=== PATIENT | female | born 1930 | race Caucasian/White ===

== ENCOUNTER 2016-10-29 20:56 | Inpatient (IN) | payer MEDICARE, OTHER ==
[2016-10-29] MEDS ORDERED: ALPRAZolam 0.25 MG TAB PO PRN (23:11)
[2016-10-29] MEDS ORDERED: ACETAMINOPHEN TAB 325 MG TAB PO PRN (23:11)
[2016-10-29 23:13] VITALS: BMI 26.3
[2016-10-29] MEDS ORDERED: SODIUM CHLORIDE 0.9% 1,000 ML IV SCH (23:15)
[2016-10-29 23:58] LABS: Basophils % (A) 0 %; Eosinophils # (A) 0.1 k/uL (0-0.7); Eosinophils % (A) 1 %; HCT 31.9 % (34.0-46.0); HDW 2.42; HGB 9.7 gm/dL (11.4-16.0); Hypochromasia Moderate; Luc # (Auto) 0.22; Luc % (Auto) 3; Lymphocytes # (A) 0.5 k/uL (1.0-4.8); Lymphocytes % (A) 6 %; MCH 31.5 pg (25.0-35.0); MCHC 30.3 g/dL (31.0-37.0); MCV 103.8 fL (80.0-100.0); Macrocytosis Moderate; Monocytes # (A) 0.4 k/uL (0-1.0); Monocytes % (A) 5 %; Neutrophils # (A) 7.3 k/uL (1.3-7.7); Neutrophils % (A) 86 %; RBC 3.07 m/uL (3.80-5.40); RDW 14.9 % (11.5-15.5); WBC 8.5 k/uL (3.8-10.6)
--- NOTE | 2016-10-30 00:01 | XR ---
EXAM: XR CXR 1 VIEW INDICATION: 86-year-old female, CHF. COMPARISON: 10/26/2015. FINDINGS: Single frontal view demonstrates a stable cardiomediastinal silhouette. Aorta is tortuous. The lungs are clear without focal consolidation, pneumothorax, or pleural effusion. The visualized osseous structures are unremarkable. IMPRESSION: No acute cardiopulmonary disease.
[2016-10-30 00:07] LABS: Calcium 8.6 mg/dL (8.4-10.2); Potassium 4.7 mmol/L (3.5-5.1); Total Bilirubin 1.2 mg/dL (0.2-1.3); Total Protein 5.3 g/dL (6.3-8.2)
[2016-10-30 02:34] LABS: Amorphous Sediment,Urine Rare /hpf; Appearance,Urine Cloudy (Clear); Bacteria,Urine Many /hpf; Bilirubin,Urine Negative (Negative); Glucose,Urine (UA) Negative (Negative); Ketones,Urine Negative (Negative); Leukocyte Esterase,Urine Large (Negative); Mucus,Urine Rare /hpf; Nitrite,Urine Negative (Negative); PH, Urine 8.5 (5.0-8.0); Particle Count 27114; Protein,Urine 1+ (Negative); RBC,Urine 4 /hpf (0-5); Triple Phosphate Crystal,Urine Rare /hpf; UA Billing (MACRO vs. MICRO) MICRO; Urobilinogen,Urine <2.0 mg/dL (<2.0); WBC,Urine 54 /hpf (0-5)
[2016-10-30 07:18] LABS: Basophils % (A) 0 %; CH 31.1; CHCM 29.8; Eosinophils # (A) 0.1 k/uL (0-0.7); Eosinophils % (A) 1 %; HCT 34.9 % (34.0-46.0); HDW 2.39; HGB 10.2 gm/dL (11.4-16.0); Hypochromasia Marked; Luc # (Auto) 0.28; Luc % (Auto) 3; Lymphocytes # (A) 0.4 k/uL (1.0-4.8); Lymphocytes % (A) 4 %; MCH 30.9 pg (25.0-35.0); MCHC 29.3 g/dL (31.0-37.0); MCV 105.2 fL (80.0-100.0); Macrocytosis Moderate; Mean Platelet Volume 8.3; Monocytes # (A) 0.4 k/uL (0-1.0); Monocytes % (A) 5 %; Neutrophils # (A) 8.3 k/uL (1.3-7.7); Neutrophils % (A) 87 %; RBC 3.32 m/uL (3.80-5.40); WBC 9.5 k/uL (3.8-10.6); WBC (Perox) 9.78
[2016-10-30 07:50] LABS: Glucose,Whole Blood 182 mg/dL (75-99)
[2016-10-30 07:50] LABS: Calcium 8.6 mg/dL (8.4-10.2)
[2016-10-30] MEDS: LEVALBUTEROL NEB 1.25 MG/3 ML AMP INHALATION SCH ×3 (11:22→20:11)
[2016-10-30] MEDS: PANTOPRAZOLE 40 MG TABLET PO SCH (11:30)
[2016-10-30] MEDS: HEPARIN SODIUM,PORCINE 5,000 UNIT/ML 1 ML VIAL SQ SCH ×2 (11:30→21:13)
[2016-10-30 11:52] LABS: Glucose,Whole Blood 253 mg/dL (75-99)
--- NOTE | 2016-10-30 12:35 | HP ---
DATE OF ADMISSION: 10/29/2016 CHIEF COMPLAINT: Weakness, tiredness, fever, dehydration. HISTORY OF PRESENT ILLNESS: This 86-year-old woman with a past history of diabetes mellitus, GERD, hypertension, hyperlipidemia, history of pneumonia, rheumatic fever, history of uterine cancer, history of appendectomy, back surgery, history of coccyx decubitus ulcer, history of gout, being followed by Dr. Conde in the outpatient setting, presented to [facility] with features of feeling weak, shaking, running fevers, with temperature up to 102 to 103. Her p.o. intake was very low. the patient had persistent vomiting. The patient was subsequently transferred to [facility] for further evaluation and treatment. There is no history of any headache, loss of consciousness, chest pain or palpitations at this time. Creatinine went up to 2.9 today which is definitely more than the baseline which is 1.6. PAST MEDICAL HISTORY: History of diabetes, gastroesophageal reflux disease, hyperlipidemia, hypertension, pneumonia, history of hypothyroidism, history of rheumatic fever, surgery, DJD, gout. Medications prior to admission: The updated list is not available. FAMILY HISTORY: No history of heart disease or strokes in the family. SOCIAL HISTORY: No history of smoking or alcohol intake. REVIEW OF SYSTEMS: ENT: Diminishing hearing. Diminished vision. CARDIOVASCULAR: As mentioned earlier. As mentioned earlier. GI: As mentioned earlier. : As mentioned earlier. RHEUMATOLOGY: Negative. ENDOCRINE: As mentioned earlier. PSYCHIATRY: As mentioned earlier. NERVOUS SYSTEM: No numbness or weakness. ALLERGY/IMMUNOLOGY: No hayfever. HEMATOLOGY/ONCOLOGY: As mentioned. PSYCHIATRY: As mentioned earlier. On exam, the patient is alert, oriented x3. Pulse is 83, blood pressure is 120/52, respirations 20, temperature 100.8, pulse ox is 93%. HEENT: Conjunctivae normal. Oral mucosa dry. NECK: No jugular venous distention. CARDIOVASCULAR: S1 and S2 muffled. LUNGS: Breath sounds diminished at the bases. Few scattered rhonchi and crackles. Expiratory wheezing also present. ABDOMEN: Soft, nontender. EXTREMITIES: Legs no edema. NERVOUS SYSTEM: No focal deficits. LABS: EKG shows ST-T wave changes. Other labs are reviewed and include WBC 10.6, platelets 131. UA with 3+ leukocyte esterase and 1 to 3 WBCs ASSESSMENT: 1. Fever and dehydration with acute on chronic renal failure, possible prerenal factors. 2. Diabetes mellitus type 2. 3. Possible urinary tract infection. 4. Possible acute bronchitis, rule out influenza. 5. Diabetes mellitus type 2. 6. History of gastroesophageal reflux disease. 7. Hypertension. 8. Hyperlipidemia. 9. History of decubitus ulcer stage 3. 10. History of rheumatic fever. 11. History of uterine cancer. 12. History of pelvis fracture. 13. History of gout. 14. 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 15. History of back surgery and degenerative joint disease. 16. Depression, not otherwise specified. 17. FULL CODE. RECOMMENDATIONS: In this 87-year-old woman who presented with multiple complex medical issues, we will monitor the patient closely. Continue the current medications and symptomatic treatment. Otherwise at this time I would recommend empiric antibiotics. Obtain cultures. Cautious IV fluids. I would recommend infectious disease and nephrology consultations. Guarded prognosis because of multiple complex medical issues. Check bronchodilators. See orders. Baseline labs. Guarded prognosis because of multiple medical issues. Further recommendations to follow. MTDD
--- NOTE | 2016-10-30 13:16 | P.NPCON ---
History of Present Illness - Reason for Consult Consult date: 10/30/16 - Chief Complaint Acute kidney injury with urostomy - History of Present Illness This is a 86-year-old female seen in consultation because of chronic kidney disease acute kidney injury and non-gap acidosis. She has been ill with 5 days history of temperature, cough with dry scanty sputum no shortness of breath. No chest pain. Nausea vomiting and poor appetite. She also has chronic diarrhea ever since 1978 when she had radiation to her uterus. This is controlled and she has 1 or 2 loose stools a day. No blood in the stools. No history of using any antibiotics recently but she is on nonsteroidals. She is known with diabetes since 1978, uterine cancer at that time underwent radiation with resulting need for urostomy with the ileal loop. Blood sugars more recently have been out of control and are high. She is also known with chronic back ulcer she uses a walker to walk and is mostly bedridden. The ulcer has been there for maybe 2 years. Workup so far has shown influenza A and B are negative. Urinalysis has WBCs but this is specimen from the loop urostomy. Past Medical History Past Medical History: Cancer, Chest Pain / Angina, Diabetes Mellitus, GERD/ Reflux, Hyperlipidemia, Hypertension, Pneumonia, Thyroid Disorder Additional Past Medical History / Comment(s): Hx Rheumatic fever Hx Uterine cancer and had radation which causes constant loose stools. Had bladder removed r/t uterine cancer and radiation. Has urostomy. Currently wound on coccyx ,pt stated has been recieving tx for 2 year., fx pelvis fx rt arm 1985, lt elbow BROKEN 1985,lt wrist FX 2000, GOUT. 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/15-VRE MDRO Source:: MRSA-Back;VRE Urine Past Surgical History: Appendectomy, Back Surgery, Bladder Surgery, Cholecystectomy, Hysterectomy, Joint Replacement, Orthopedic Surgery, Tonsillectomy Additional Past Surgical History / Comment(s): Total right knee, cataracts, BLADDER AND RT KIDNEY REMOVED WERE DAMAGED FROM RADIATION TREATMENTS,HAS UROSTOMY, NECK SX 1993,COLONOSCOPY, NERVE BLOCK 1998,BACK SX 1999,KNEE SX 1999, TEST ON GLANDS IN NECK,2000 HAS HAD 4 BACK SX HAS METAL IN PLACE, RT ARM SX ,LT ELBOW SX HAS PIN IN PLACE Past Anesthesia/Blood Transfusion Reactions: No Reported Reaction Additional Past Anesthesia/Blood Transfusion Reaction / Comment(s): blood transfusion 2001 Past Psychological History: Depression Additional Psychological History / Comment(s): , lives with grandson. No travels. experience. No animal exposures. No tobacco or alcohol use. Smoking Status: Never smoker Past Alcohol Use History: None Reported Past Drug Use History: None Reported - Past Family History Mother Family Medical History: Cancer Additional Family Medical History / Comment(s): mother age late 80's of leukemia Father Family Medical History: Cancer Additional Family Medical History / Comment(s): of cancer of the throat age 70's Medications and Allergies Home Medications Medication Instructions Recorded Confirmed Type Allopurinol [Zyloprim] 100 mg PO BID 01/22/15 10/30/16 History Aspirin 81 mg PO DAILY 01/22/15 10/30/16 History Cholestyramine (with Sugar) 4 gm PO BID 01/22/15 10/30/16 History [Questran Powder] Ferrous Sulfate [Iron (65 MG 325 mg PO BID-W/MEALS 01/22/15 10/30/16 History Elemental)] Insulin Aspart Protam & Aspart 20 unit SQ BID-W/MEALS 01/22/15 10/30/16 History [NovoLOG MIX 70-30 Flexpen] Isosorbide Mononitrate ER [Imdur] 30 mg PO DAILY 01/22/15 10/30/16 History Multivitamins, Thera [Multivitamin 1 tab PO DAILY 01/22/15 10/30/16 History (formulary)] Nitroglycerin Sl Tabs [Nitrostat] 0.4 mg SUBLINGUAL Q5M PRN 01/22/15 10/30/16 History Omeprazole [PriLOSEC] 20 mg PO DAILY 01/22/15 10/30/16 History Cholecalciferol [Vitamin D3] 2,000 unit PO DAILY 07/08/15 10/30/16 History Potassium Chloride [Klor-Con 10] 10 meq PO DAILY 07/08/15 10/30/16 History Furosemide [Lasix] 40 mg PO DAILY 11/05/15 10/30/16 History Calcitriol 0.25 mcg PO TUTHSA 02/04/16 10/30/16 History Sodium Bicarbonate 325 mg PO DAILY 02/04/16 10/30/16 History Acetaminophen Tab [Tylenol Tab] 500 mg PO Q6HR PRN 03/24/16 10/30/16 History Levothyroxine Sodium [Synthroid] 25 mcg PO DAILY 10/30/16 10/30/16 History Loperamide HCl [Loperamide] 2 mg PO QID PRN 10/30/16 10/30/16 History Ondansetron [Zofran ODT] 8 mg PO Q12H PRN 10/30/16 10/30/16 History Allergies Allergy/AdvReac Type Severity Reaction Status Date / Time adhesive Allergy Unknown Verified 10/30/16 12:13 cephalexin monohydrate Allergy Unknown Verified 10/30/16 12:13 [From Keflex] chlordiazepoxide Allergy Unknown Verified 10/30/16 12:13 [From Librax (with clidinium)] ciprofloxacin [From Cipro] Allergy Unknown Verified 10/30/16 12:13 ciprofloxacin HCl Allergy Unknown Verified 10/30/16 12:13 [From Cipro] clidinium bromide Allergy Unknown Verified 10/30/16 12:13 [From Librax (with clidinium)] codeine Allergy Unknown Verified 10/30/16 12:13 naloxone HCl [From Talwin NX] Allergy Unknown Verified 10/30/16 12:13 nitrofurantoin Allergy Unknown Verified 10/30/16 12:13 Penicillins Allergy Unknown Verified 10/30/16 12:13 pentazocine Allergy Unknown Verified 10/30/16 12:13 pentazocine HCl Allergy Unknown Verified 10/30/16 12:13 [From Talwin NX] prednisone Allergy Unknown Verified 10/30/16 12:13 sulfadiazine Allergy Unknown Verified 10/30/16 12:13 flu virus vaccine Allergy Unknown Uncoded 10/06/16 10:27 phosphate Allergy Unknown Uncoded 10/06/16 10:27 wire stiches Allergy Unknown Uncoded 10/06/16 10:27 Physical Exam Vitals: Vital Signs Temp Pulse Pulse Resp BP Pulse Ox 10/30/16 11:37 99.4 F 10/30/16 11:35 76 10/30/16 11:26 72 10/30/16 08:00 70 18 10/30/16 07:00 98.2 F 70 18 118/61 94 L 10/29/16 23:11 97 10/29/16 23:00 97.5 F L 66 14 124/56 97 Intake and Output 10/29/16 10/30/16 10/30/16 22:59 06:59 14:59 Intake Total 360 Output Total 400 300 Balance -40 -300 Intake: Intake, IV Titration 360 Amount Sodium Chloride 0.9% 1, 360 000 ml @ 60 mls/hr IV . [id number] ARIADNA Rx#:[id number] Output: Urine 400 300 Other: Weight 73.936 kg 73.936 kg Patient Weight 10/31/16 06:59 Weight 73.936 kg On examination she looks ill concern anxious. A chin exam no JVP lymphadenopathy thyromegaly no card bruit neck is supple no facial asymmetry Lungs are significant for bilateral coarse crackles at bases good air entry bilaterally no dullness to percussion. Heart sounds are unremarkable for any murmur rub gallop. Abdomen soft nontender there is a large ventral hernia in the left lower quadrant and there is urostomy on the right lower quadrant no masses felt. Extremity exam was no edema Neurologically awake alert oriented no focal motor deficit but profoundly weakness Results - Lab Results Most recent lab results Calcium 8.6 mg/dL (8.4-10.2) 10/30/16 07:02 10/30/16 07:02 10/30/16 07:02 Assessment and Plan Plan: Impression. 1. Chronic kidney disease with a baseline creatinine of 1.15 daily for 4 2016 a year ago and prior to that has been between 1.87-1.16. This is likely from nephrosclerosis and she has trace protein in the urinalysis possible element of diabetic nephropathy cannot be ruled out. 2. Acute kidney injury secondary to volume depletion from recent nausea vomiting and chronic diarrhea. Additionally acute renal failure is from upper respiratory infection with bronchitis with high temperatures. 3. Mild non-gap acidosis from diarrhea and from acute kidney injury and chronic kidney disease. 4. Diabetes since 1978 with trace proteinuria. 5. History of uterine cancer with radiation with subsequent urostomy 1978. 6. 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 7. Chronic Bedsores from bedridden and chronic immobilization. 8. Status post ileal loop urostomy 1978, postoperative complication from uterine cancer and radiation. 9. Upper respiratory infection, chest x-ray is normal. Recommendation. 1. She is on IV fluids normal saline and I'll increase the rate from 60 mL to 100 mL per hour. 2. She has mild non-gap acidosis will start her on sodium bicarb orally likely she will need chronic as she has chronic diarrhea. 3. Cover with antibiotics for bronchitis 4. Monitor labs I's and O's and blood pressure
[2016-10-30] MEDS: INSULIN LISPRO (humaLOG) 300 UNIT/3 ML VIAL SQ SCH ×3 (14:13→21:21)
[2016-10-30] MEDS: SODIUM CHLORIDE 0.9% 1,000 ML IV SCH (14:14)
--- NOTE | 2016-10-30 14:20 | XR ---
EXAMINATION TYPE: XR abdomen 2V DATE OF EXAM: 10/30/2016 1:59 PM COMPARISON: NONE INDICATION: Abdomen pain vomiting TECHNIQUE: Single view abdomen upright view. Supine views of the abdomen are obtained. FINDINGS: Psoas margins are normal. Postsurgical changes are present. No organomegaly is evident. Multiple surgical clips are within the pelvis. Nonspecific bowel gas is present. IMPRESSION: 1. Nonspecific abdomen.
[2016-10-30 16:58] LABS: Glucose,Whole Blood 345 mg/dL (75-99)
[2016-10-30] MEDS ORDERED: LOPERAMIDE 2 MG CAP PO PRN (17:27)
[2016-10-30] MEDS ORDERED: ONDANSETRON ODT 8 MG TAB.RAPDIS PO PRN (17:27)
[2016-10-30] MEDS ORDERED: NITROGLYCERIN SL TABS 0.4 MG TAB SUBLINGUAL PRN (17:27)
[2016-10-30] MEDS ORDERED: AZTREONAM 2 GM in SODIUM CHLORIDE 0.9% 100 ML IVPB SCH (17:30)
--- NOTE | 2016-10-30 17:52 | P.CONS ---
History of Present Illness - Reason for Consult Consult date: 10/30/16 - Chief Complaint Fever with cough - History of Present Illness 86-year-old female with a pleasure caring for in the past presents to hospital with a several-day history of increasing illness. He is having increasing fatigue and malaise and weakness associated with fever. She's feeling more dehydrated and was having some loose stool. If she became more dehydrated she developed some nausea and emesis. Because she is felt so poorly she went to her local hospital. With evidence of her fever and concerns to sepsis she was transferred to our facility for further intervention. There is evidence of acute renal failure at the time of her admission. With concerns to gram-negative sepsis the infectious diseases consultation was requested. The patient was tested for flu and it's come back negative. But she feels like she could have the flu. She has some sinus congestion some chest congestion and again the fevers and chills. No acute rigors at this time. Feels quite poorly overall. Since receiving hydration she's feeling somewhat better since been able to ingest a little bit of fluid. Review of Systems As noted patient feels very poorly. Flulike symptom complex HEENT: Only mild headache without acute visual change. Sinus congestion but no mouth discomforts. Denies neck stiffness or pain. Denies significant oral cavity pain. Denies difficulty on swallowing. Lungs: Actually short of breath but is having cough and sinus congestion no hemoptysis or sputum production Cardiovascular: Denies change of shortness of breath, and denies chest pain, chest wall pain, orthopnea, dyspnea on exertion, syncope Gastrointestinal: Had nausea and emesis which is now improved. Is having some loose stools but not today. No hematemesis melena or hematochezia occurred Musculoskeletal: Has had some myalgias that is improving no true arthralgia. No new joint swelling. Denies new back pain. Skin: Denies new rash or lesions. No new ulcers or wounds are related.. Neuro: Feels weak but no new neurological changes Psychiatric:Denies anxiety or depression. Endocrine: Negative in fatigue denies significant weight loss or weight gain. Past Medical History Past Medical History: Cancer, Chest Pain / Angina, Diabetes Mellitus, GERD/ Reflux, Hyperlipidemia, Hypertension, Pneumonia, Thyroid Disorder Additional Past Medical History / Comment(s): Hx Rheumatic fever Hx Uterine cancer and had radation which causes constant loose stools. Had bladder removed r/t uterine cancer and radiation. Has urostomy. Currently wound on coccyx ,pt stated has been recieving tx for 2 year., fx pelvis fx rt arm 1985, lt elbow BROKEN 1985,lt wrist FX 2000, GOUT. 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 MDRO Source:: MRSA-Back;VRE Urine Past Surgical History: Appendectomy, Back Surgery, Bladder Surgery, Cholecystectomy, Hysterectomy, Joint Replacement, Orthopedic Surgery, Tonsillectomy Additional Past Surgical History / Comment(s): Total right knee, cataracts, BLADDER AND RT KIDNEY REMOVED WERE DAMAGED FROM RADIATION TREATMENTS,HAS UROSTOMY, NECK SX 1993,COLONOSCOPY, NERVE BLOCK 1998,BACK SX 1999,KNEE SX 1999, TEST ON GLANDS IN NECK,2000 HAS HAD 4 BACK SX HAS METAL IN PLACE, RT ARM SX ,LT ELBOW SX HAS PIN IN PLACE Past Anesthesia/Blood Transfusion Reactions: No Reported Reaction Additional Past Anesthesia/Blood Transfusion Reaction / Comm: blood transfusion 2001 Past Psychological History: Depression Additional Psychological History / Comment(s): , lives with grandson. No travels. experience. No animal exposures. No tobacco or alcohol use. Smoking Status: Never smoker Past Alcohol Use History: None Reported Past Drug Use History: None Reported - Past Family History Mother Family Medical History: Cancer Additional Family Medical History / Comment(s): mother age late 80's of leukemia Father Family Medical History: Cancer Additional Family Medical History / Comment(s): of cancer of the throat age 70's Medications and Allergies Home Medications and Allergies Comment(s): Current Medications Acetaminophen (Tylenol Tab) 650 mg PO Q6HR PRN PRN Reason: Mild Pain or Fever > 100.5 Allopurinol (Zyloprim) 100 mg PO BID [facility] Alprazolam (Xanax) 0.25 mg PO Q6HR PRN PRN Reason: Anxiety Last Admin: 10/30/16 11:55 Dose: 0.25 mg Aspirin (Aspirin) 81 mg PO DAILY [facility] Calcitriol (Rocaltrol) 0.25 mcg PO TuThSa@0900 [facility] Cholecalciferol (Vitamin D3) 2,000 unit PO 1200 [facility] Cholestyramine Resin (Questran) 4 gm PO BID [facility] Heparin Sodium (Porcine) (Heparin) 5,000 unit SQ Q12HR [facility] Last Admin: 10/30/16 11:30 Dose: 5,000 unit Sodium Chloride (Saline 0.9%) 1,000 mls @ 100 mls/hr IV .Q10H [facility] Last Admin: 10/30/16 14:14 Dose: 100 mls/hr Aztreonam 2 gm/ Sodium (Chloride) 100 mls @ 100 mls/hr IVPB Q8HR [facility] Insulin Aspart (Novolog Mix 70-30 Vial) 20 unit SQ BID-W/MEALS [facility] Insulin Human Lispro (Humalog) 0 unit SQ ACHS [facility] PRN Reason: Protocol Last Admin: 10/30/16 17:05 Dose: 6 unit Isosorbide Mononitrate (Imdur) 30 mg PO DAILY [facility] Levalbuterol HCl (Xopenex Nebulized) 1.25 mg INHALATION RT-TID [facility] Last Admin: 10/30/16 11:23 Dose: 1.25 mg Levothyroxine Sodium (Synthroid) 25 mcg PO 0630 [facility] Loperamide HCl (Imodium) 2 mg PO QID PRN PRN Reason: Diarrhea Multivitamins (Theragran) 1 each PO DAILY@1200 [facility] Nitroglycerin (Nitrostat) 0.4 mg SUBLINGUAL Q5M PRN PRN Reason: Chest Pain Ondansetron HCl (Zofran Odt) 8 mg PO Q12H PRN PRN Reason: Nausea Pantoprazole Sodium (Protonix) 40 mg PO AC-BRKFST [facility] Last Admin: 10/30/16 11:30 Dose: 40 mg Sodium Bicarbonate (Sodium Bicarbonate Tab) 650 mg PO QID [facility] Temazepam (Restoril) 15 mg PO HS PRN PRN Reason: Insomnia Tramadol HCl (Ultram) 50 mg PO QID PRN PRN Reason: Pain Home Medications Medication Instructions Recorded Confirmed Type Allopurinol [Zyloprim] 100 mg PO BID 01/22/15 10/30/16 History Aspirin 81 mg PO DAILY 01/22/15 10/30/16 History Cholestyramine (with Sugar) 4 gm PO BID 01/22/15 10/30/16 History [Questran Powder] Ferrous Sulfate [Iron (65 MG 325 mg PO BID-W/MEALS 01/22/15 10/30/16 History Elemental)] Insulin Aspart Protam & Aspart 20 unit SQ BID-W/MEALS 01/22/15 10/30/16 History [NovoLOG MIX 70-30 Flexpen] Isosorbide Mononitrate ER [Imdur] 30 mg PO DAILY 01/22/15 10/30/16 History Multivitamins, Thera [Multivitamin 1 tab PO DAILY 01/22/15 10/30/16 History (formulary)] Nitroglycerin Sl Tabs [Nitrostat] 0.4 mg SUBLINGUAL Q5M PRN 01/22/15 10/30/16 History Omeprazole [PriLOSEC] 20 mg PO DAILY 01/22/15 10/30/16 History Cholecalciferol [Vitamin D3] 2,000 unit PO DAILY 07/08/15 10/30/16 History Potassium Chloride [Klor-Con 10] 10 meq PO DAILY 07/08/15 10/30/16 History Furosemide [Lasix] 40 mg PO DAILY 11/05/15 10/30/16 History Calcitriol 0.25 mcg PO TUTHSA 02/04/16 10/30/16 History Sodium Bicarbonate 325 mg PO DAILY 02/04/16 10/30/16 History Acetaminophen Tab [Tylenol Tab] 500 mg PO Q6HR PRN 03/24/16 10/30/16 History Levothyroxine Sodium [Synthroid] 25 mcg PO DAILY 10/30/16 10/30/16 History Loperamide HCl [Loperamide] 2 mg PO QID PRN 10/30/16 10/30/16 History Ondansetron [Zofran ODT] 8 mg PO Q12H PRN 10/30/16 10/30/16 History Allergies Allergy/AdvReac Type Severity Reaction Status Date / Time adhesive Allergy Unknown Verified 10/30/16 12:13 cephalexin monohydrate Allergy Unknown Verified 10/30/16 12:13 [From Keflex] chlordiazepoxide Allergy Unknown Verified 10/30/16 12:13 [From Librax (with clidinium)] ciprofloxacin [From Cipro] Allergy Unknown Verified 10/30/16 12:13 ciprofloxacin HCl Allergy Unknown Verified 10/30/16 12:13 [From Cipro] clidinium bromide Allergy Unknown Verified 10/30/16 12:13 [From Librax (with clidinium)] codeine Allergy Unknown Verified 10/30/16 12:13 naloxone HCl [From Talwin NX] Allergy Unknown Verified 10/30/16 12:13 nitrofurantoin Allergy Unknown Verified 10/30/16 12:13 Penicillins Allergy Unknown Verified 10/30/16 12:13 pentazocine Allergy Unknown Verified 10/30/16 12:13 pentazocine HCl Allergy Unknown Verified 10/30/16 12:13 [From Talwin NX] prednisone Allergy Unknown Verified 10/30/16 12:13 sulfadiazine Allergy Unknown Verified 10/30/16 12:13 flu virus vaccine Allergy Unknown Uncoded 10/06/16 10:27 phosphate Allergy Unknown Uncoded 10/06/16 10:27 wire stiches Allergy Unknown Uncoded 10/06/16 10:27 Physical Exam Vitals: Vital Signs Temp Pulse Pulse Resp BP Pulse Ox 10/30/16 16:00 69 18 10/30/16 15:00 97.9 F 69 18 118/54 98 10/30/16 11:37 99.4 F 10/30/16 11:35 76 10/30/16 11:26 72 10/30/16 08:00 70 18 10/30/16 07:00 98.2 F 70 18 118/61 94 L 10/29/16 23:11 97 10/29/16 23:00 97.5 F L 66 14 124/56 97 Intake and Output 10/30/16 10/30/16 10/30/16 06:59 14:59 22:59 Intake Total 360 240 Output Total 400 900 Balance -40 -660 Intake: Intake, IV Titration 360 Amount Sodium Chloride 0.9% 1, 360 000 ml @ 60 mls/hr IV . [id number] [facility] Rx#:[id number] Oral 240 Output: Urine 400 900 Other: Weight 73.936 kg Patient Weight 10/31/16 06:59 Weight 73.936 kg HEENT: Anicteric conjunctiva are pink and moist nasal mucosa grossly intact without significant lesions, there is no thrush. Neck: The neck is supple without significant lymphadenopathy or thyromegaly. Lungs: Symmetrical air entry. Scattered expiratory wheezes. Few basilar crackles. Heart: Irregular with an audible S1 and S2 soft S4 2/6 systolic murmur left sternal border has not changed ,no click or rub. Abdomen: Positive bowel sounds soft and nontender without palpable masses or organomegaly. There was no guarding or rebound. Extremities: The upper extremities have excellent pulses they are symmetric, no significant petechiae or telangiectasia. No splinter hemorrhages were noted. The lower extremities are free from significant edema. The peripheral pulses were 2+ and symmetric. Neuro: Awake alert oriented to person place and time. There are no acute new gross focal sensory motor deficits. Results CBC & Chem 7: 10/30/16 07:02 10/30/16 07:02 Labs: Abnormal Lab Results - Last 24 Hours (Table) 10/29/16 10/29/16 10/30/16 Range/Units 23:28 23:28 02:10 RBC 3.07 L (3.80-5.40) m/uL Hgb 9.7 L (11.4-16.0) gm/dL Hct 31.9 L (34.0-46.0) % MCV 103.8 H (80.0-100.0) fL MCHC 30.3 L (31.0-37.0) g/dL Plt Count 131 L (150-450) k/uL Neutrophils # (1.3-7.7) k/uL Lymphocytes # 0.5 L (1.0-4.8) k/uL Chloride 110 H (98-107) mmol/L Carbon Dioxide 18 L (22-30) mmol/L BUN 83 H* (7-17) mg/dL Creatinine 2.80 H (0.52-1.04) mg/dL Glucose 177 H (74-99) mg/dL POC Glucose (mg/dL) (75-99) mg/dL AST 12 L (14-36) U/L Total Protein 5.3 L (6.3-8.2) g/dL Albumin 2.8 L (3.5-5.0) g/dL Urine Appearance Cloudy H (Clear) Urine pH 8.5 H (5.0-8.0) Urine Protein 1+ H (Negative) Ur Leukocyte Esterase Large H (Negative) Urine WBC 54 H (0-5) /hpf Urine WBC Clumps Rare H (None) /hpf Triple Phos Crystals Rare H (None) /hpf Amorphous Sediment Rare H (None) /hpf Urine Bacteria Many H (None) /hpf Urine Mucus Rare H (None) /hpf 10/30/16 10/30/16 10/30/16 Range/Units 07:02 07:02 07:44 RBC 3.32 L (3.80-5.40) m/uL Hgb 10.2 L (11.4-16.0) gm/dL Hct (34.0-46.0) % MCV 105.2 H (80.0-100.0) fL MCHC 29.3 L (31.0-37.0) g/dL Plt Count 121 L (150-450) k/uL Neutrophils # 8.3 H (1.3-7.7) k/uL Lymphocytes # 0.4 L (1.0-4.8) k/uL Chloride 111 H (98-107) mmol/L Carbon Dioxide 19 L (22-30) mmol/L BUN 80 H* (7-17) mg/dL Creatinine 2.67 H (0.52-1.04) mg/dL Glucose 175 H (74-99) mg/dL POC Glucose (mg/dL) 182 H (75-99) mg/dL AST (14-36) U/L Total Protein (6.3-8.2) g/dL Albumin (3.5-5.0) g/dL Urine Appearance (Clear) Urine pH (5.0-8.0) Urine Protein (Negative) Ur Leukocyte Esterase (Negative) Urine WBC (0-5) /hpf Urine WBC Clumps (None) /hpf Triple Phos Crystals (None) /hpf Amorphous Sediment (None) /hpf Urine Bacteria (None) /hpf Urine Mucus (None) /hpf 10/30/16 10/30/16 Range/Units 11:48 16:57 RBC (3.80-5.40) m/uL Hgb (11.4-16.0) gm/dL Hct (34.0-46.0) % MCV (80.0-100.0) fL MCHC (31.0-37.0) g/dL Plt Count (150-450) k/uL Neutrophils # (1.3-7.7) k/uL Lymphocytes # (1.0-4.8) k/uL Chloride (98-107) mmol/L Carbon Dioxide (22-30) mmol/L BUN (7-17) mg/dL Creatinine (0.52-1.04) mg/dL Glucose (74-99) mg/dL POC Glucose (mg/dL) 253 H 345 H (75-99) mg/dL AST (14-36) U/L Total Protein (6.3-8.2) g/dL Albumin (3.5-5.0) g/dL Urine Appearance (Clear) Urine pH (5.0-8.0) Urine Protein (Negative) Ur Leukocyte Esterase (Negative) Urine WBC (0-5) /hpf Urine WBC Clumps (None) /hpf Triple Phos Crystals (None) /hpf Amorphous Sediment (None) /hpf Urine Bacteria (None) /hpf Urine Mucus (None) /hpf Microbiology - Last 24 Hours (Table) 10/30/16 02:10 Urine Culture - Preliminary Urine,Suprapubic Laboratory Results WBC 9.5 k/uL (3.8-10.6) 10/30/16 07:02 RBC 3.32 m/uL (3.80-5.40) L 10/30/16 07:02 Hgb 10.2 gm/dL (11.4-16.0) L 10/30/16 07:02 Hct 34.9 % (34.0-46.0) 10/30/16 07:02 MCV 105.2 fL (80.0-100.0) H 10/30/16 07:02 MCH 30.9 pg (25.0-35.0) 10/30/16 07:02 MCHC 29.3 g/dL (31.0-37.0) L 10/30/16 07:02 RDW 15.0 % (11.5-15.5) 10/30/16 07:02 Plt Count 121 k/uL (150-450) L 10/30/16 07:02 Neutrophils % 87 % 10/30/16 07:02 Lymphocytes % 4 % 10/30/16 07:02 Monocytes % 5 % 10/30/16 07:02 Eosinophils % 1 % 10/30/16 07:02 Basophils % 0 % 10/30/16 07:02 Neutrophils # 8.3 k/uL (1.3-7.7) H 10/30/16 07:02 Lymphocytes # 0.4 k/uL (1.0-4.8) L 10/30/16 07:02 Monocytes # 0.4 k/uL (0-1.0) 10/30/16 07:02 Eosinophils # 0.1 k/uL (0-0.7) 10/30/16 07:02 Basophils # 0.0 k/uL (0-0.2) 10/30/16 07:02 Hypochromasia Marked 10/30/16 07:02 Macrocytosis Moderate 10/30/16 07:02 Sodium 142 mmol/L (137-145) 10/30/16 07:02 Potassium 5.0 mmol/L (3.5-5.1) 10/30/16 07:02 Chloride 111 mmol/L (98-107) H 10/30/16 07:02 Carbon Dioxide 19 mmol/L (22-30) L 10/30/16 07:02 Anion Gap 12 mmol/L 10/30/16 07:02 BUN 80 mg/dL (7-17) H* 10/30/16 07:02 Creatinine 2.67 mg/dL (0.52-1.04) H 10/30/16 07:02 Est GFR (MDRD) Af Amer 21 (>60 ml/min/1.73 sqM) 10/30/16 07:02 Est GFR (MDRD) Non-Af 17 (>60 ml/min/1.73 sqM) 10/30/16 07:02 Glucose 175 mg/dL (74-99) H 10/30/16 07:02 POC Glucose (mg/dL) 345 mg/dL (75-99) H 10/30/16 16:57 POC Glu Adult Services Librarian ID Jasmin Cramer 10/30/16 16:57 Calcium 8.6 mg/dL (8.4-10.2) 10/30/16 07:02 Total Bilirubin 1.2 mg/dL (0.2-1.3) 10/29/16 23:28 AST 12 U/L (14-36) L 10/29/16 23:28 ALT 26 U/L (9-52) 10/29/16 23:28 Alkaline Phosphatase 83 U/L (38-126) 10/29/16 23:28 Total Protein 5.3 g/dL (6.3-8.2) L 10/29/16 23:28 Albumin 2.8 g/dL (3.5-5.0) L 10/29/16 23:28 Urine Color Yellow 10/30/16 02:10 Urine Appearance Cloudy (Clear) H 10/30/16 02:10 Urine pH 8.5 (5.0-8.0) H 10/30/16 02:10 Ur Specific [place] 1.010 (1.001-1.035) 10/30/16 02:10 Urine Protein 1+ (Negative) H 10/30/16 02:10 Urine Glucose (UA) Negative (Negative) 10/30/16 02:10 Urine Ketones Negative (Negative) 10/30/16 02:10 Urine Blood Negative (Negative) 10/30/16 02:10 Urine Nitrite Negative (Negative) 10/30/16 02:10 Urine Bilirubin Negative (Negative) 10/30/16 02:10 Urine Urobilinogen <2.0 mg/dL (<2.0) 10/30/16 02:10 Ur Leukocyte Esterase Large (Negative) H 10/30/16 02:10 Urine RBC 4 /hpf (0-5) 10/30/16 02:10 Urine WBC 54 /hpf (0-5) H 10/30/16 02:10 Urine WBC Clumps Rare /hpf (None) H 10/30/16 02:10 Triple Phos Crystals Rare /hpf (None) H 10/30/16 02:10 Amorphous Sediment Rare /hpf (None) H 10/30/16 02:10 Urine Bacteria Many /hpf (None) H 10/30/16 02:10 Urine Mucus Rare /hpf (None) H 10/30/16 02:10 Influenza Type A RNA Not Detected (Not Detectd) 10/29/16 23:22 Influenza Type B (PCR) Not Detected (Not Detectd) 10/29/16 23:22 Microbiology 10/30/16 02:10 Urine,Suprapubic Urine Culture - Preliminary Chest x-ray: report reviewed (Without evidence of pneumonia) Abdominal x-ray: report reviewed (Without evidence of obstruction) Assessment and Plan (1) Gram negative sepsis Narrative/Plan: 86-year-old woman who has the extensive past medical history related to her uterine cancer in the radiation therapy and the multiple complications that have occurred. She does have a urostomy in place that has been functioning well. 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 Is noted has had a marked change of her status with fever and flulike symptoms associated some nausea and emesis also. She's become quite dehydrated with resultant acute on chronic renal failure. Is not available by nephrology and is receiving intervention at this time with fluids and correction of some acidosis. She has only mild anemia. There is some outside data revealing evidence of a possible culture with gram- negative bacilli. Concerns is from the urinary system she has chronic abnormalities to her urinalysis from her prior history. Await the outside data for alteration her antibiotic therapy. With her many ALLERGIES is actually was being utilized in his dose adjusted for her creatine clearance of 17. Follow up blood cultures are requested. Nutritional status is requested. Status: Acute (2) Acute on chronic renal failure Status: Acute (3) Nausea and vomiting Status: Acute
[2016-10-30] MEDS: SODIUM BICARBONATE TAB 650 MG TAB PO SCH ×2 (19:42→23:39)
[2016-10-30] MEDS: AZTREONAM 1 GM in SODIUM CHLORIDE 0.9% 50 ML IVPB SCH ×2 (19:42→23:38)
[2016-10-30] MEDS: INSULN ASP PRT/INSULIN ASPART 100 UNIT/ML 10 ML VIAL SQ SCH (19:54)
[2016-10-30] MEDS: CHOLESTYRAMINE (WITH SUGAR) 4 GM PACKET PO SCH (21:13)
[2016-10-30] MEDS: ALLOPURINOL 100 MG TAB PO SCH (21:13)
[2016-10-30 21:21] LABS: Glucose,Whole Blood 187 mg/dL (75-99)
[2016-10-31 01:51] LABS: Glucose,Whole Blood 61 mg/dL (75-99)
[2016-10-31 02:18] LABS: Glucose,Whole Blood 93 mg/dL (75-99)
[2016-10-31] MEDS: SODIUM CHLORIDE 0.9% 1,000 ML IV SCH ×3 (04:01→20:34)
[2016-10-31] MEDS: LEVOTHYROXINE 25 MCG TAB PO SCH (05:59)
[2016-10-31] MEDS: ASPIRIN 81 MG CHEW PO SCH (07:14)
[2016-10-31] MEDS: PANTOPRAZOLE 40 MG TABLET PO SCH (07:14)
[2016-10-31] MEDS: CHOLESTYRAMINE (WITH SUGAR) 4 GM PACKET PO SCH ×2 (07:14→20:08)
[2016-10-31] MEDS: ALLOPURINOL 100 MG TAB PO SCH ×2 (07:14→20:08)
[2016-10-31] MEDS: SODIUM BICARBONATE TAB 650 MG TAB PO SCH ×4 (07:14→22:45)
[2016-10-31] MEDS: ISOSORBIDE MONONITRATE ER 30 MG TAB.ER.24H PO SCH (07:14)
[2016-10-31] MEDS: AZTREONAM 1 GM in SODIUM CHLORIDE 0.9% 50 ML IVPB SCH ×3 (07:14→23:24)
[2016-10-31] MEDS: HEPARIN SODIUM,PORCINE 5,000 UNIT/ML 1 ML VIAL SQ SCH ×2 (07:15→20:07)
[2016-10-31] MEDS: LEVALBUTEROL NEB 1.25 MG/3 ML AMP INHALATION SCH (07:26)
[2016-10-31 07:32] LABS: Glucose,Whole Blood 96 mg/dL (75-99)
[2016-10-31] MEDS: INSULIN LISPRO (humaLOG) 300 UNIT/3 ML VIAL SQ SCH ×4 (07:49→20:11)
[2016-10-31 08:20] LABS: Basophils % (A) 0 %; CH 30.7; CHCM 29.4; Eosinophils # (A) 0.2 k/uL (0-0.7); Eosinophils % (A) 2 %; HCT 33.4 % (34.0-46.0); HDW 2.43; HGB 10.1 gm/dL (11.4-16.0); Hypochromasia Marked; Luc # (Auto) 0.32; Luc % (Auto) 4; Lymphocytes # (A) 0.9 k/uL (1.0-4.8); Lymphocytes % (A) 11 %; MCH 31.8 pg (25.0-35.0); MCHC 30.3 g/dL (31.0-37.0); MCV 104.9 fL (80.0-100.0); Macrocytosis Moderate; Mean Platelet Volume 8.2; Monocytes # (A) 0.6 k/uL (0-1.0); Monocytes % (A) 7 %; Neutrophils # (A) 6.1 k/uL (1.3-7.7); Neutrophils % (A) 75 %; RBC 3.19 m/uL (3.80-5.40); RDW 14.8 % (11.5-15.5); WBC 8.1 k/uL (3.8-10.6); WBC (Perox) 8.44
[2016-10-31 08:32] LABS: Calcium 8.3 mg/dL (8.4-10.2)
[2016-10-31] MEDS ORDERED: NON-FORMULARY DRUG (Omeprazole [Prilosec] 20 MG) PO SCH (09:00)
[2016-10-31] MEDS ORDERED: SODIUM BICARBONATE 325 MG PO SCH (09:00)
--- NOTE | 2016-10-31 09:28 | CDI ---
In responding to this query, please exercise your independent professional judgment. The [facility] Coding Staff and Clinical Documentation Specialists appreciate your assistance in clarifying documentation, maintaining compliance with coding guidelines, accurately documenting patients condition and capturing severity of illness. The fact that a question is asked does not imply that any particular answer is desired or expected. Communication forms are a method of clarifying documentation and are not made part of the Legal Health Record. Thank you in advance for your clarification. Last Revision, May 2015 Nallely Leal [address] [facility] [place] [address] Documentation Clarification Form Date: 10/31/2016 9:14:00 AM From: Valerio Guerrero RN, BSN, CDI Admit Date: 10/29/2016 10:50:00 PM Patient Name: Kalee Staton Visit Number: [id number] Dr. Terrance Urbina: "Gram negative sepsis" is documented in the ID consultants progress notes. 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 She is being treated fro possible UTI and possible bronchitis. Influenza has been ruled out. Clinical Indicators: blood cultures from outside facility (10/22- gram negative bacilli), temperatures 102-103 per documentation in the ED. Treatment: ID/nephrology consult, Aztreonam, IVF @100cc/hr, repeat blood/urine cultures Definition of Present on Admission (POA): A diagnosis present at the time the order for admission to inpatient status was written. For each diagnosis, documentation must be clear to determine if the condition was present at the time of the patients inpatient admission or developed during the hospital stay. Please clarify in your progress notes and discharge summary as to whether gram negative sepsis was: * POA * Not POA * Clinically undetermined if sepsis was present at the time of the order for inpatient admission * Sepsis ruled out Please continue to document in your progress notes and discharge summary in order to capture severity of illness and risk of mortality. Include clinical findings that support your diagnosis. FYI: Press F11 to launch patient chart. MTDD
--- NOTE | 2016-10-31 09:46 | CDI ---
In responding to this query, please exercise your independent professional judgment. The [facility] Coding Staff and Clinical Documentation Specialists appreciate your assistance in clarifying documentation, maintaining compliance with coding guidelines, accurately documenting patients condition and capturing severity of illness. The fact that a question is asked does not imply that any particular answer is desired or expected. Communication forms are a method of clarifying documentation and are not made part of the Legal Health Record. Thank you in advance for your clarification. Last Revision, May 2015 Nallely Leal [address] [facility] [place] [address] Documentation Clarification Form Date: 10/31/2016 9:28:00 AM From: Valerio Guerrero, RN, BSN, CDI Admit Date: 10/29/2016 10:50:00 PM Patient Name: Kalee Staton Visit Number: [id number] Dr. Donna Barbosa: History/Risk Factors : 86 yo female with a history of DM, CKD, GERD, HTN, urostomy tube and chronic diarrhea presents from [facility] with c/o weakness, cough and fevers. She is being treated for possible UTI, bronchitis and possible gram negative sepsis. 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 Include clinical findings that support your diagnosis. FYI: Press F11 to launch patient chart. Place X here if this finding has no clinical significance, is not applicable or if you are not able to provide any additional documentation. MTDD
[2016-10-31] MEDS: INSULN ASP PRT/INSULIN ASPART 100 UNIT/ML 10 ML VIAL SQ SCH ×2 (10:22→18:20)
[2016-10-31 12:03] LABS: Hemoglobin A1C 6.8 % (4.2-6.1)
--- NOTE | 2016-10-31 12:08 | PN ---
DATE OF SERVICE: 10/30/2016 This 86-year-old woman was admitted with tiredness, weakness, severe dehydration, acute renal failure with prerenal factors, also had UTI. The patient will be closely monitored at this time. The creatinine has stabilized elevated to 2.67, BUN is 80, the UA has also showed large leukocyte esterase. Patient is also started on broad-spectrum IV antibiotics as well. Dr. Barbosa has seen the patient and recommended continue with the current medication, consult the. PAST MEDICAL HISTORY: Reviewed. REVIEW OF SYSTEMS: CARDIOVASCULAR: No angina or palpitation. RESPIRATORY: As mentioned earlier. GI: As mentioned earlier. : No dysuria. NERVOUS SYSTEM: No numbness or weakness. Current medications are reviewed include Tylenol 650 q.6 p.r.n., Xanax 0.25 q.6, heparin, Xopenex, Protonix, Restoril, Ultram. PHYSICAL EXAM: Patient is alert and oriented x3. Pulse 69, blood pressure 118/54, respirations 18, temperature is 97.9, pulse ox 98% on room air. HEENT: Conjunctivae normal. NECK: No jugular venous distension. CARDIOVASCULAR SYSTEM: S1, S2, muffled. RESPIRATORY: Breath sounds diminished at the bases. A few scattered rhonchi, no crackles. Abdomen is soft, obese, nontender, no mass palpable. LEGS: No swelling, no edema. NERVOUS SYSTEM: No focal deficits. LABS: WBC 9.5, hemoglobin is 10.2 and the creatinine is 2.67. UA noted. Cultures are pending at this time. ASSESSMENT: 1. Fever with dehydration with acute on chronic renal failure, possibly prerenal factors. 2. Urinary tract infection with possible sepsis. 3. Diabetes mellitus type 2. 4. Possible acute bronchitis, influenza ruled out. 5. Diabetes mellitus type 2. 6. History of gastroesophageal reflux disease. 7. Hypertension. 8. Hyperlipidemia. 9. History of decubitus ulcer stage III. 10. History of rheumatic fever. 11. History of uterine cancer. 12. History of urostomy. 13. History of pelvis fracture. 14. History of gout. 15. 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 16. History of back surgery and degenerative joint disease. 17. Depression, not otherwise specified. 18. FULL CODE. RECOMMENDATION: Recommend to continue with the current medication. Continue with the monitoring and symptomatic treatment. Otherwise, at this time I would recommend continue with bronchodilators, will add empiric antibiotics. Otherwise, guarded prognosis because of multiple complex medical issues. Further recommendations to follow. MTDD
[2016-10-31] MEDS: CHOLECALCIFEROL 1,000 UNIT TAB PO SCH (12:15)
[2016-10-31] MEDS: MULTIVITAMINS, THERA 1 EACH TAB PO SCH (12:15)
[2016-10-31 12:16] LABS: Glucose,Whole Blood 149 mg/dL (75-99)
[2016-10-31] MEDS: ALBUTEROL NEBULIZED 2.5 MG/3 ML INHALATION SCH ×3 (13:15→18:50)
--- NOTE | 2016-10-31 14:20 | PN ---
Patient is seen for followup for acute kidney injury. Currently, she is lying in bed, comfortable, not in any acute distress. Patient is maintained on IV fluids at about 100 mL/h. Her creatinine is at 2.38 now. She came in at 2.8 mg/dL, previous creatinine about 4 or 5 days ago was 1.15 mg/dL. Patient has been voiding with about 1800 mL for the last 24 hours. On examination, blood pressure is 107/62, heart rate 70 per minute. She is afebrile. Examination of the heart, S1 and S2. Examination of the lungs, bilateral breath sounds are heard. Abdomen is soft, nontender. Examination of lower extremities shows no significant edema. MATERIAL MAN exam is grossly intact. Labs show sodium 140, potassium 5.0, BUN 69, serum creatinine 2.38. Hemoglobin 10.1 g/dL. ASSESSMENT: 1. Acute kidney injury, most likely acute tubular necrosis with some improvement in renal function. Continue with IV fluids for now. Repeat labs in the a.m., avoid nephrotoxic agents. 2. Metabolic acidosis, maintained on sodium bicarb. 3. Chronic kidney disease with previous creatinine of about 1.15 mg/dL, most likely secondary to nephrosclerosis. PLAN: Continue IV fluids. Repeat labs in a.m. Encourage increased oral intake.
[2016-10-31 16:57] LABS: Glucose,Whole Blood 225 mg/dL (75-99)
[2016-10-31 20:18] LABS: Glucose,Whole Blood 367 mg/dL (75-99)
[2016-10-31] MEDS: traMADol 50 MG TAB PO PRN (22:45)
[2016-10-31] MEDS: TEMAZEPAM 15 MG CAP PO PRN (22:46)
[2016-11-01 03:02] LABS: Glucose,Whole Blood 71 mg/dL (75-99)
--- NOTE | 2016-11-01 05:24 | PN ---
DATE OF SERVICE: 10/31/2016 This 86-year-old woman who admitted with fever, dehydration with prerenal factors, acute on chronic renal failure also had a UTI with possible sepsis. The patient is being closely monitored at this time. Urine cultures showing Gram negative bacilli #1 and 2 and group D Enterococcus. The patient is followed by Dr. Damon and Dr. Orozco and patient is started on broad-spectrum day empiric antibiotics including Azactam at this time. PAST MEDICAL HISTORY: Reviewed. REVIEW OF SYSTEMS: CARDIOVASCULAR: As mentioned earlier. RESPIRATORY: As mentioned earlier. GI: As mentioned earlier. : No dysuria. NERVOUS SYSTEM: No numbness or weakness. Current medications are reviewed and include: 1. Tylenol 650 q.6 p.r.n. 2. Ventolin 2.5 q.i.d. 3. Zyloprim 100 mg b.i.d. 4. Xanax 0.25 mg q.6. 5. Aspirin 81 mg daily. 6. Aztreonam . 7. Rocaltrol. 8. Vitamin D3, 2000 daily. 9. Questran 4 grams p.o. b.i.d. 10. Heparin 5000 subcu b.i.d. 11. NovoLog 70/30, twenty units subcu b.i.d. 12. Humalog. 13. Imdur 30 mg daily. 14. Synthroid 25 mcg p.o. daily. 15. Imodium. 16. Multivitamin. 17. Nitrostat. 18. Protonix. 19. Restoril. 20. Ultram. PHYSICAL EXAMINATION: The patient is alert and oriented x3. Pulse 73, blood pressure 99/46, respirations 16, temperature 98 degrees, pulse ox 98% on room air. HEENT: Conjunctivae normal. NECK: No jugular venous distention. CARDIOVASCULAR: S1 and S2, muffled. . RESPIRATORY: Breath sounds diminished at the bases. Bilateral scattered rhonchi and crackles. ABDOMEN: Soft, nontender. . LEGS: No edema, no swelling. NERVOUS SYSTEM: ntd. Labs are creatinine is 2.38, slightly better than 2.8 present on admission. Hemoglobin is 10.1. Cultures are noted. UA noted. ASSESSMENT: 1. Fever with dehydration with possible urinary tract infection with sepsis, Gram-negative sepsis, present on admission. 2. Dehydration with acute on chronic renal failure, possible prerenal factors. 3. Diabetes mellitus type 2. 4. Possible acute bronchitis, influenza ruled out. 5. History of gastroesophageal reflux disease. 6. Hypertension. 7. Hyperlipidemia. 8. Generalized asthenia. 9. History of decubitus ulcer stage III. 10. History of rheumatic fever. 11. History of uterine cancer. 12. History of urostomy. 13. History of pelvis fracture. 14. History of gout. 15. History of methicillin-resistant Staphylococcus aureus and vancomycin-resistant enterococcus previously. 16. History of back surgery and degenerative joint disease. 17. History of depression, not otherwise specified. 18. FULL CODE. RECOMMENDATIONS AND DISCUSSION: This 86-year-old woman who presented with multiple complex medical issues, we will monitor the patient closely. Continue the current medications, continue symptomatic treatment. Otherwise at this time, I will initiate broad-spectrum empiric antibiotics. Otherwise, continue to monitor. Guarded prognosis. Further recommendations to follow. The patient also had a Gram negative bacilli from the blood culture and urine culture, final ID is pending. See orders for further details. Continue antibiotics. Further recommendations to follow. MTDD
[2016-11-01] MEDS: LEVOTHYROXINE 25 MCG TAB PO SCH (05:33)
[2016-11-01] MEDS: SODIUM CHLORIDE 0.9% 1,000 ML IV SCH ×2 (05:39→17:02)
[2016-11-01 07:10] LABS: Glucose,Whole Blood 86 mg/dL (75-99)
[2016-11-01 07:48] VITALS: RESP 16
[2016-11-01 08:27] LABS: Basophils % (A) 0 %; CH 30.3; Eosinophils # (A) 0.2 k/uL (0-0.7); Eosinophils % (A) 3 %; HDW 2.59; HGB 9.8 gm/dL (11.4-16.0); Hypochromasia Marked; Luc # (Auto) 0.21; Luc % (Auto) 4; Lymphocytes # (A) 0.9 k/uL (1.0-4.8); Lymphocytes % (A) 15 %; MCH 32.2 pg (25.0-35.0); MCHC 31.7 g/dL (31.0-37.0); MCV 101.6 fL (80.0-100.0); Macrocytosis Slight; Monocytes # (A) 0.3 k/uL (0-1.0); Monocytes % (A) 6 %; Neutrophils # (A) 4.3 k/uL (1.3-7.7); Neutrophils % (A) 72 %; RBC 3.05 m/uL (3.80-5.40); RDW 14.7 % (11.5-15.5); WBC (Perox) 6.18
[2016-11-01] MEDS: INSULIN LISPRO (humaLOG) 300 UNIT/3 ML VIAL SQ SCH ×4 (08:37→22:25)
[2016-11-01] MEDS: INSULN ASP PRT/INSULIN ASPART 100 UNIT/ML 10 ML VIAL SQ SCH ×2 (08:37→17:53)
[2016-11-01] MEDS: HEPARIN SODIUM,PORCINE 5,000 UNIT/ML 1 ML VIAL SQ SCH ×2 (08:38→22:24)
[2016-11-01] MEDS: CHOLESTYRAMINE (WITH SUGAR) 4 GM PACKET PO SCH ×2 (08:38→22:24)
[2016-11-01] MEDS: SODIUM BICARBONATE TAB 650 MG TAB PO SCH ×4 (08:38→22:24)
[2016-11-01] MEDS: ASPIRIN 81 MG CHEW PO SCH (08:39)
[2016-11-01] MEDS: CALCITRIOL 0.25 MCG CAP PO SCH (08:39)
[2016-11-01] MEDS: AZTREONAM 1 GM in SODIUM CHLORIDE 0.9% 50 ML IVPB SCH ×3 (08:39→23:43)
[2016-11-01] MEDS: ALLOPURINOL 100 MG TAB PO SCH ×2 (08:39→22:24)
[2016-11-01] MEDS: PANTOPRAZOLE 40 MG TABLET PO SCH (08:39)
[2016-11-01] MEDS: ISOSORBIDE MONONITRATE ER 30 MG TAB.ER.24H PO SCH (08:40)
[2016-11-01] MEDS: MULTIVITAMINS, THERA 1 EACH TAB PO SCH (08:40)
[2016-11-01] MEDS: CHOLECALCIFEROL 1,000 UNIT TAB PO SCH (08:40)
--- NOTE | 2016-11-01 09:31 | PN ---
This is the 86-year-old woman who presented to the hospital with significant alteration of her mental status and evidence of fever, acute renal failure and urinary tract infection. At this time the patient is somewhat improved. She is denying interim new troubles. She is a poor historian. On the exam, please see the nursing documentation for the vital signs. On the exam, she is anicteric. She does not have thrush. She is edentulous. No nasal or oral lesions. The neck is supple. Lungs have good bilateral air entry with only a few basilar crackles. The heart is regular. Abdomen is soft and nontender. The extremities are without significant edema. Neurologically, some confusion. At this point in time the cultures are reviewed. She is doing well on current antibiotic therapy. This will be continued for now. Continue to follow her laboratories. Arrangements for antibiotic therapy would be made at the time of her discharge. Continue to monitor her fever and leukocytosis and her renal failure.
[2016-11-01] MEDS: ALBUTEROL NEBULIZED 2.5 MG/3 ML INHALATION SCH ×4 (10:04→21:18)
[2016-11-01 11:22] LABS: Glucose,Whole Blood 178 mg/dL (75-99)
[2016-11-01] MEDS: traMADol 50 MG TAB PO PRN ×2 (12:15→22:41)
--- NOTE | 2016-11-01 14:57 | PN ---
Patient is seen for followup for acute kidney injury. Patient is lying in bed, comfortable. She is not in any acute distress. Patient is maintained on IV fluids. On examination, blood pressure is 99/48, heart rate 77 per minute. She is afebrile. Examination of the heart, S1 and S2. Examination of the lungs, bilateral breath sounds are heard. Abdomen is soft, nontender. Examination of lower extremities shows no significant edema. DEBURRING TECHNICIAN exam is grossly intact. Labs show sodium 140, potassium 5.0, chloride 113, BUN 64, serum creatinine 2.32. Hemoglobin 9.8 g/dL, 24-hour urine output was at 1.8 L. ASSESSMENT: 1. Acute kidney injury, currently nonoliguric, renal function and staying about the same with no significant improvement in the creatinine. Her previous creatinine was at 1.15 mg/dL on 10/26/2015. I will check an abdominal ultrasound to rule out underlying hydronephrosis. Repeat labs in a.m. and continue to avoid nephrotoxic agents. I will decrease IV fluids to about 60 mL/h. 2. Urinary tract infection with urine culture growing Escherichia coli and group D enterococcus. 3. Bacteremia with Escherichia coli. PLAN: Continue IV fluids, encourage increased oral intake, decreased rate of the IV fluids to about 60 mL/h. Check ultrasound of the kidneys and continue to avoid nephrotoxic agents.
--- NOTE | 2016-11-01 17:03 | US ---
EXAMINATION TYPE: US kidneys/renal and bladder DATE OF EXAM: 11/01/2016 4:26 PM COMPARISON: on PACS CLINICAL HISTORY: renal failure. Patient states having right kidney and bladder removed in 1979 due t o complications of ovarian surgery. Hx of ovarian CA. EXAM MEASUREMENTS: Right Kidney: Surgically absent Left Kidney: Enlarged, with left kidney measurements: 13.7 x 4.5 x 6.2 cm. Lower pole cortical cystic lesion measuring 0.9 x 0.6 x 0.8 cm, displaying posterior wall enhancement and through sound transmi ssion. There is no evidence for hydronephrosis. No nephrolithiasis. No masses. Bladder: Surgically removed IMPRESSION: No acute process.
[2016-11-01 17:29] LABS: Glucose,Whole Blood 136 mg/dL (75-99)
[2016-11-01 20:06] LABS: Glucose,Whole Blood 194 mg/dL (75-99)
--- NOTE | 2016-11-01 22:48 | PN ---
DATE OF SERVICE: 11/01/2016 This 86 -year-old woman was admitted with prerenal factors. Possibly urinary tract infection with gram-negative sepsis is being closely monitored. Patient also had dehydration also. The blood cultures showing E. coli and urine cultures showing E. coli and Enterobacter. Otherwise generally organisms are extremely susceptible to antibiotics. The patient is on IV. Infectious disease is following the patient closely. No chest pain. No palpitations. PAST MEDICAL HISTORY reviewed. REVIEW OF SYSTEMS: CARDIOVASCULAR: No angina or palpitations. RESPIRATORY: as mentioned earlier. GI: Mentioned earlier. : No dysuria. NERVOUS SYSTEM: Diffusely weak. Current medications are reviewed and include: 1. Tylenol 650 q.6h p.r.n. 2. Ventolin 2.5 q.i.d. 3. Zyloprim 100 mg b.i.d. 4. Xanax 0.5 q.6. 5. Aspirin 81 mg daily. 6. Aztreonam 1 gram IV q.8. 7. Rocaltrol 0.5 mg Monday, and Monday. 8. Vitamin D3 2000 daily. 9. Questran 4 grams p.o. daily. 10. Heparin 5000 subcu b.i.d. 11. Novolog mix 70/30 20 units b.i.d. 12. Imdur 30 mg p.o. daily. 13. Synthroid 25 mcg p.o. daily. 14. Imodium 2 mg p.o. daily. 15. Multivitamins. 16. Nitrostat. 17. Zofran. 18. Protonix. PHYSICAL EXAMINATION: Patient is alert and oriented x3. Pulse 71, blood pressure 101/50, respiratory rate 16, temperature 97.1, pulse ox 94% on room air. HEENT: Conjunctivae normal. NECK: No jugular venous distention. CARDIOVASCULAR: S1, S2 muffled. RESPIRATORY: Breath sounds diminished at the bases. A few scattered rhonchi, no crackles. ABDOMEN: Soft, nontender. No mass palpable. Legs: No edema. CENTRAL NERVOUS SYSTEM: Higher functions as mentioned earlier. Moves all 4 limbs. No focal deficits. LYMPHATICS: No lymph nodes palpable in the neck, axillae or groin. SKIN: No ulcer, rash or bleeding. Labs at this time shows WBC 6, hemoglobin is 9.8, MCV 101.6, sodium 140, potassium 5, CO2 is 20, creatinine is 2.32. ASSESSMENT: 1. Fever with dehydration with possible urinary tract infection with sepsis gram-negative E. coli, present on admission. 2. Multiple organisms in the urine culture. 3. Dehydration with acute on chronic renal failure, possible prerenal factors present on admission. 4. Diabetes mellitus type 2. 5. Generalized weakness. 6. Gait dysfunction. 7. Possible acute bronchitis. Influenza ruled out. 8. History of gastroesophageal reflux disease. 9. Hypertension, essential. 10. Hyperlipidemia. 11. History of decubitus ulcer stage III. 12. History of rheumatic fever. 13. History of uterine cancer. 14. History of urostomy. 15. History of pelvic fracture. 16. History of gout. 17. History of methicillin-resistant Staphylococcus aureus and VRE. 18. History of back surgery and degenerative joint disease. 19. History of depression, not otherwise specified. 20. FULL CODE. RECOMMENDATIONS AND DISCUSSION: I would recommend to continue with current medications, continue with monitoring, symptomatic treatment. Otherwise at this time, I would recommend continue with IV hydration. Continue with antibiotics. PT, OT evaluation. Explore the possibility of ECF rehab. Guarded prognosis because of multiple complex medical issues. Further recommendations to follow. MTDD
[2016-11-02] MEDS: TEMAZEPAM 15 MG CAP PO PRN (00:09)
[2016-11-02] MEDS: SODIUM CHLORIDE 0.9% 1,000 ML IV SCH ×2 (00:10→11:06)
[2016-11-02] MEDS: LEVOTHYROXINE 25 MCG TAB PO SCH (06:33)
[2016-11-02 07:22] LABS: Glucose,Whole Blood 133 mg/dL (75-99)
[2016-11-02] MEDS: ALBUTEROL NEBULIZED 2.5 MG/3 ML INHALATION SCH ×4 (07:37→21:06)
[2016-11-02] MEDS: HEPARIN SODIUM,PORCINE 5,000 UNIT/ML 1 ML VIAL SQ SCH ×2 (09:02→21:59)
[2016-11-02] MEDS: ASPIRIN 81 MG CHEW PO SCH (09:02)
[2016-11-02] MEDS: PANTOPRAZOLE 40 MG TABLET PO SCH (09:02)
[2016-11-02] MEDS: CHOLESTYRAMINE (WITH SUGAR) 4 GM PACKET PO SCH ×2 (09:02→21:59)
[2016-11-02] MEDS: ALLOPURINOL 100 MG TAB PO SCH ×2 (09:02→21:59)
[2016-11-02] MEDS: ISOSORBIDE MONONITRATE ER 30 MG TAB.ER.24H PO SCH (09:02)
[2016-11-02] MEDS: SODIUM BICARBONATE TAB 650 MG TAB PO SCH ×4 (09:03→22:00)
[2016-11-02 09:04] LABS: Basophils % (A) 1 %; CH 30.3; CHCM 29.8; Eosinophils # (A) 0.2 k/uL (0-0.7); Eosinophils % (A) 2 %; HCT 33.2 % (34.0-46.0); HDW 2.62; HGB 10.4 gm/dL (11.4-16.0); Hypochromasia Marked; Luc # (Auto) 0.26; Luc % (Auto) 4; Lymphocytes # (A) 1.2 k/uL (1.0-4.8); Lymphocytes % (A) 17 %; MCHC 31.3 g/dL (31.0-37.0); MCV 102.3 fL (80.0-100.0); Macrocytosis Slight; Mean Platelet Volume 7.8; Monocytes # (A) 0.4 k/uL (0-1.0); Monocytes % (A) 6 %; Neutrophils # (A) 4.8 k/uL (1.3-7.7); Neutrophils % (A) 70 %; RBC 3.25 m/uL (3.80-5.40); RDW 14.6 % (11.5-15.5); WBC 6.8 k/uL (3.8-10.6)
[2016-11-02 09:14] LABS: Calcium 8.6 mg/dL (8.4-10.2); Potassium 5.1 mmol/L (3.5-5.1)
[2016-11-02] MEDS: AZTREONAM 1 GM in SODIUM CHLORIDE 0.9% 50 ML IVPB SCH ×3 (09:15→23:21)
[2016-11-02] MEDS: INSULIN LISPRO (humaLOG) 300 UNIT/3 ML VIAL SQ SCH ×4 (09:16→21:59)
[2016-11-02] MEDS: INSULN ASP PRT/INSULIN ASPART 100 UNIT/ML 10 ML VIAL SQ SCH ×2 (09:18→18:25)
[2016-11-02 11:11] LABS: Glucose,Whole Blood 189 mg/dL (75-99)
--- NOTE | 2016-11-02 11:26 | DS ---
DATE OF ADMISSION: 10/29/2016 DATE OF DISCHARGE: The patient is an 86-year-old pleasant female admitted for severe sepsis and bacteremia secondary to urinary tract infection, which appears to have improved and patient is on aztreonam. Patient's urine was positive for multiple bacteria E. coli and Enterococcus gallinarum. Patient was bacteremic with E. coli. Repeat blood cultures are negative. Patient also had acute renal failure, which is prerenal azotemia and possible nonoliguric acute tubular necrosis from sepsis, both of which improved. Patient is being discharged today in stable medical condition to subacute rehabilitation. Patient is complaining of pain. Patient appears to be a bit in mild respiratory distress, may be related to pain, but I wanted to get a chest x-ray although her lungs appears to be clear. If chest x-ray is okay, patient will discharged back to subacute rehabilitation. Patient's baseline creatinine appears to be now around 1.9. When she came in, it was 2.80. She is expected to improve. Lasix will be discontinued. Patient was seen and examined on the day of discharge. Vitals are stable. PHYSICAL EXAMINATION: GENERAL: The patient is alert and oriented x3, not in any acute distress. Well developed, well nourished. HEENT: Pupils are round and equally reacting to light. EOMI. No scleral icterus. No conjunctival pallor. Normocephalic, atraumatic. No pharyngeal erythema. No thyromegaly. CARDIOVASCULAR: S1 and S2 present. No murmurs, rubs, or gallops. PULMONARY: Chest is clear to auscultation, no wheezing or crackles. ABDOMEN: Soft, nontender, nondistended, normoactive bowel sounds. No palpable organomegaly. MUSCULOSKELETAL: No joint swelling or deformity. EXTREMITIES: No cyanosis, clubbing, or pedal edema. NEUROLOGICAL: Gross neurological examination did not reveal any focal deficits. SKIN: No rashes. FINAL DIAGNOSES: 1. Severe sepsis secondary to urinary tract infection and bacteremia secondary to urinary tract infection. 2. Acute renal failure prerenal azotemia along with intravascular volume depletion along with possible acute tubular necrosis. 3. Type diabetes mellitus. 4. Generalized weakness. 5. Gastroesophageal reflux disease. 6. Hypertension. 7. Hyperlipidemia. 8. Sacral decubitus ulcer, stage III, which will need local wound care. Patient will be discharged to subacute rehabilitation. Please refer to my depart summary for further details of discharge medication. Patient will follow with Dr. Boston Bradshaw or Dr. Rodriguez in subacute rehabilitation. Activity as per the facility. Spent greater than 35 minutes in total discharge process. DISCHARGE DIET: Cardiac. Activity as per the facility.
[2016-11-02] MEDS: CHOLECALCIFEROL 1,000 UNIT TAB PO SCH (11:28)
[2016-11-02] MEDS: MULTIVITAMINS, THERA 1 EACH TAB PO SCH (11:31)
[2016-11-02] MEDS: NYSTATIN 100,000 UNIT/ML SUSP 500,000 UNIT/5 ML CUP PO SCH ×3 (11:33→21:59)
--- NOTE | 2016-11-02 11:35 | XR ---
EXAMINATION TYPE: XR chest 1V DATE OF EXAM: 11/02/2016 10:59 AM COMPARISON: 10/29/2016 HISTORY: Shortness of breath FINDINGS: There are bilateral pleural effusions with cardiomegaly and bibasilar infiltrate. There is a diffuse interstitial pattern. Arthropathy of the shoulders. IMPRESSION: 1. Bilateral infiltrate and pleural effusion correlate for CHF.
[2016-11-02] MEDS ORDERED: FUROSEMIDE 10 MG/ML 4 ML VIAL IV STA (13:33)
--- NOTE | 2016-11-02 14:20 | PN ---
Patient is seen for followup for acute kidney injury. She has had right nephrectomy in 1979. Patient was admitted to the hospital with bacteremia and urinary tract infection with E. coli. She has been maintained on IV fluids. Currently, she is feeling better. Her renal function has improved to some degree with creatinine now at 1.9 from 2.8 on initial admission. Previous creatinine has been at 1.15 and 1.16 mg/dL. On examination, blood pressure is 138/63, heart rate 72 per minute. She is afebrile. Examination of the heart, S1 and S2. Examination of the lungs, bilateral breath sounds are heard. Abdomen is soft, nontender. Examination of the lower extremities show no significant edema. PLANER HAND examination grossly intact. Labs show sodium 142, potassium 5.1, BUN 64, serum creatinine 1.98, CO2 is 20. Hemoglobin 10.4 g/dL. ASSESSMENT: 1. Acute kidney injury, acute tubular necrosis, currently slowly improving. Patient is encouraged to increase oral intake, and can decrease the IV fluids. 2. Sepsis with bacteremia from Escherichia coli and urinary tract infection with urine culture growing Escherichia coli and enterococcus maintained on aztreonam. 3. Metabolic acidosis, maintained on oral sodium bicarb. 4. CPAP with a previous creatinine as low as 1.15 mg/dL with solitary kidney. 5. History of right nephrectomy after complication for surgery for ovarian cyst. PLAN: Decrease IV fluids. Encourage increased oral intake. The patient will need to follow up as outpatient for CKD while she is discharged.
[2016-11-02 16:39] LABS: Glucose,Whole Blood 100 mg/dL (75-99)
[2016-11-02 20:35] LABS: Glucose,Whole Blood 180 mg/dL (75-99)
[2016-11-02] MEDS: traMADol 50 MG TAB PO PRN (22:04)
--- NOTE | 2016-11-02 22:48 | P.PN ---
Subjective Principal diagnosis: Fever with cough 86-year-old female with a pleasure caring for in the past presents to hospital with a several-day history of increasing illness. He is having increasing fatigue and malaise and weakness associated with fever. She's feeling more dehydrated and was having some loose stool. If she became more dehydrated she developed some nausea and emesis. Because she is felt so poorly she went to her local hospital. With evidence of her fever and concerns to sepsis she was transferred to our facility for further intervention. There is evidence of acute renal failure at the time of her admission. With concerns to gram-negative sepsis the infectious diseases consultation was requested. The patient was tested for flu and it's come back negative. But she feels like she could have the flu. She has some sinus congestion some chest congestion and again the fevers and chills. No acute rigors at this time. Feels quite poorly overall. Since receiving hydration she's feeling somewhat better since been able to ingest a little bit of fluid. Objective - Vital Signs Vital signs: Vital Signs Temp 97.6 F 11/02/16 15:00 Pulse 80 11/02/16 21:16 Resp 16 11/02/16 16:03 BP 127/72 11/02/16 15:00 Pulse Ox 93 L 11/02/16 15:00 Intake & Output 11/02/16 11/02/16 11/03/16 06:59 18:59 06:59 Intake Total 1900 700 Output Total 1850 2800 Balance 50 -2100 Intake: Intake, IV Titration 1500 700 Amount Aztreonam 1 gm In Sodium 100 Chloride 0.9% 50 ml @ 100 mls/hr IVPB Q8HR [facility] Rx# :[id number] Sodium Chloride 0.9% 1, 1500 600 000 ml @ 100 mls/hr IV . Q10H [facility] Rx#:[id number] Oral 400 Output: Urine 1850 2800 Uretheral (High) 1100 Other: # Voids 3 3 - Exam HEENT: Anicteric conjunctiva are pink and moist nasal mucosa grossly intact without significant lesions, there is no thrush. Neck: The neck is supple without significant lymphadenopathy or thyromegaly. Lungs: Symmetrical air entry. Scattered expiratory wheezes. Few basilar crackles. Heart: Irregular with an audible S1 and S2 soft S4 2/6 systolic murmur left sternal border has not changed ,no click or rub. Abdomen: Positive bowel sounds soft and nontender without palpable masses or organomegaly. There was no guarding or rebound. Extremities: The upper extremities have excellent pulses they are symmetric, no significant petechiae or telangiectasia. No splinter hemorrhages were noted. The lower extremities are free from significant edema. The peripheral pulses were 2+ and symmetric. Neuro: Awake alert oriented to person place and time. There are no acute new gross focal sensory motor deficits. - Labs CBC & Chem 7: 11/02/16 08:10 11/02/16 08:10 Labs: Abnormal Lab Results - Last 24 Hours (Table) 11/02/16 11/02/16 11/02/16 Range/Units 07:20 08:10 08:10 RBC 3.25 L (3.80-5.40) m/uL Hgb 10.4 L (11.4-16.0) gm/dL Hct 33.2 L (34.0-46.0) % MCV 102.3 H (80.0-100.0) fL Chloride 114 H (98-107) mmol/L Carbon Dioxide 20 L (22-30) mmol/L BUN 64 H (7-17) mg/dL Creatinine 1.98 H (0.52-1.04) mg/dL Glucose 128 H (74-99) mg/dL POC Glucose (mg/dL) 133 H (75-99) mg/dL 11/02/16 11/02/16 11/02/16 Range/Units 11:10 16:38 20:34 RBC (3.80-5.40) m/uL Hgb (11.4-16.0) gm/dL Hct (34.0-46.0) % MCV (80.0-100.0) fL Chloride (98-107) mmol/L Carbon Dioxide (22-30) mmol/L BUN (7-17) mg/dL Creatinine (0.52-1.04) mg/dL Glucose (74-99) mg/dL POC Glucose (mg/dL) 189 H 100 H 180 H (75-99) mg/dL Microbiology - Last 24 Hours (Table) 10/31/16 07:25 Blood Culture - Preliminary Blood No Growth after 48 hours 10/31/16 07:10 Blood Culture - Preliminary Blood No Growth after 48 hours Laboratory Results WBC 6.8 k/uL (3.8-10.6) 11/02/16 08:10 RBC 3.25 m/uL (3.80-5.40) L 11/02/16 08:10 Hgb 10.4 gm/dL (11.4-16.0) L 11/02/16 08:10 Hct 33.2 % (34.0-46.0) L 11/02/16 08:10 MCV 102.3 fL (80.0-100.0) H 11/02/16 08:10 MCH 32.0 pg (25.0-35.0) 11/02/16 08:10 MCHC 31.3 g/dL (31.0-37.0) 11/02/16 08:10 RDW 14.6 % (11.5-15.5) 11/02/16 08:10 Plt Count 203 k/uL (150-450) 11/02/16 08:10 Neutrophils % 70 % 11/02/16 08:10 Lymphocytes % 17 % 11/02/16 08:10 Monocytes % 6 % 11/02/16 08:10 Eosinophils % 2 % 11/02/16 08:10 Basophils % 1 % 11/02/16 08:10 Neutrophils # 4.8 k/uL (1.3-7.7) 11/02/16 08:10 Lymphocytes # 1.2 k/uL (1.0-4.8) 11/02/16 08:10 Monocytes # 0.4 k/uL (0-1.0) 11/02/16 08:10 Eosinophils # 0.2 k/uL (0-0.7) 11/02/16 08:10 Basophils # 0.0 k/uL (0-0.2) 11/02/16 08:10 Hypochromasia Marked 11/02/16 08:10 Macrocytosis Slight 11/02/16 08:10 Sodium 142 mmol/L (137-145) 11/02/16 08:10 Potassium 5.1 mmol/L (3.5-5.1) 11/02/16 08:10 Chloride 114 mmol/L (98-107) H 11/02/16 08:10 Carbon Dioxide 20 mmol/L (22-30) L 11/02/16 08:10 Anion Gap 8 mmol/L 11/02/16 08:10 BUN 64 mg/dL (7-17) H 11/02/16 08:10 Creatinine 1.98 mg/dL (0.52-1.04) H 11/02/16 08:10 Est GFR (MDRD) Af Amer 29 (>60 ml/min/1.73 sqM) 11/02/16 08:10 Est GFR (MDRD) Non-Af 24 (>60 ml/min/1.73 sqM) 11/02/16 08:10 Glucose 128 mg/dL (74-99) H 11/02/16 08:10 POC Glucose (mg/dL) 180 mg/dL (75-99) H 11/02/16 20:34 POC Glu Load Out Supervisor Stefania Cheema 11/02/16 20:[address] Glu mg/dL 148 mg/dL 10/30/16 07:02 Hemoglobin A1c 6.8 % (4.2-6.1) H 10/30/16 07:02 Calcium 8.6 mg/dL (8.4-10.2) 11/02/16 08:10 Total Bilirubin 1.2 mg/dL (0.2-1.3) 10/29/16 23:28 AST 12 U/L (14-36) L 10/29/16 23:28 ALT 26 U/L (9-52) 10/29/16 23:28 Alkaline Phosphatase 83 U/L (38-126) 10/29/16 23:28 Total Protein 5.3 g/dL (6.3-8.2) L 10/29/16 23:28 Albumin 2.8 g/dL (3.5-5.0) L 10/29/16 23:28 Prealbumin 9 mg/dL (18-36) L 10/30/16 07:02 Urine Color Yellow 10/30/16 02:10 Urine Appearance Cloudy (Clear) H 10/30/16 02:10 Urine pH 8.5 (5.0-8.0) H 10/30/16 02:10 Ur Specific [place] 1.010 (1.001-1.035) 10/30/16 02:10 Urine Protein 1+ (Negative) H 10/30/16 02:10 Urine Glucose (UA) Negative (Negative) 10/30/16 02:10 Urine Ketones Negative (Negative) 10/30/16 02:10 Urine Blood Negative (Negative) 10/30/16 02:10 Urine Nitrite Negative (Negative) 10/30/16 02:10 Urine Bilirubin Negative (Negative) 10/30/16 02:10 Urine Urobilinogen <2.0 mg/dL (<2.0) 10/30/16 02:10 Ur Leukocyte Esterase Large (Negative) H 10/30/16 02:10 Urine RBC 4 /hpf (0-5) 10/30/16 02:10 Urine WBC 54 /hpf (0-5) H 10/30/16 02:10 Urine WBC Clumps Rare /hpf (None) H 10/30/16 02:10 Triple Phos Crystals Rare /hpf (None) H 10/30/16 02:10 Amorphous Sediment Rare /hpf (None) H 10/30/16 02:10 Urine Bacteria Many /hpf (None) H 10/30/16 02:10 Urine Mucus Rare /hpf (None) H 10/30/16 02:10 Influenza Type A RNA Not Detected (Not Detectd) 10/29/16 23:22 Influenza Type B (PCR) Not Detected (Not Detectd) 10/29/16 23:22 Microbiology 10/31/16 07:25 Blood Blood Culture - Preliminary No Growth after 48 hours 10/31/16 07:10 Blood Blood Culture - Preliminary No Growth after 48 hours 10/30/16 02:10 Urine,Suprapubic Urine Culture - Final Escherichia coli Escherichia coli#2 Enterococcus gallinarum 10/22/16 23:28 Blood Blood Culture Gram Stain - Final 10/22/16 23:28 Blood Blood Culture - Final Escherichia coli 10/29/16 23:28 Blood Blood Culture - Final Assessment and Plan (1) Gram negative sepsis Narrative/Plan: 86-year-old woman who has the extensive past medical history related to her uterine cancer in the radiation therapy and the multiple complications that have occurred. She does have a urostomy in place that has been functioning well. 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 Is noted has had a marked change of her status with fever and flulike symptoms associated some nausea and emesis also. She's become quite dehydrated with resultant acute on chronic renal failure. Is not available by nephrology and is receiving intervention at this time with fluids and correction of some acidosis. She has only mild anemia. There is some outside data revealing evidence of a possible culture with gram- negative bacilli. Concerns is from the urinary system she has chronic abnormalities to her urinalysis from her prior history. Culture data is not available with a blood culture with Escherichia coli. Urine culture has similar E. coli and enterococcus.. With her many ALLERGIES Azactam is being utilized and is dose adjusted for her creatine clearance of 17. If this time would plan a 14 day course of therapy given her many ALLERGIES. Follow up blood cultures are requested. Nutritional status reveals moderate protein calorie malnutrition and needs supplementation. Status: Acute (2) Acute on chronic renal failure Status: Acute (3) Nausea and vomiting Status: Acute
[2016-11-03] MEDS: LEVOTHYROXINE 25 MCG TAB PO SCH (06:08)
[2016-11-03 08:14] LABS: Basophils % (A) 0 %; CHCM 30.7; Eosinophils # (A) 0.2 k/uL (0-0.7); Eosinophils % (A) 2 %; HCT 34.8 % (34.0-46.0); HDW 2.56; HGB 10.7 gm/dL (11.4-16.0); Hypochromasia Slight; Luc # (Auto) 0.22; Luc % (Auto) 3; Lymphocytes # (A) 0.6 k/uL (1.0-4.8); Lymphocytes % (A) 7 %; MCH 31.1 pg (25.0-35.0); MCHC 30.7 g/dL (31.0-37.0); MCV 101.5 fL (80.0-100.0); Macrocytosis Slight; Mean Platelet Volume 7.4; Monocytes # (A) 0.4 k/uL (0-1.0); Monocytes % (A) 5 %; Neutrophils # (A) 7.3 k/uL (1.3-7.7); Neutrophils % (A) 83 %; RBC 3.42 m/uL (3.80-5.40); WBC 8.7 k/uL (3.8-10.6); WBC (Perox) 8.91
[2016-11-03 08:19] LABS: Glucose,Whole Blood 118 mg/dL (75-99)
[2016-11-03] MEDS: INSULIN LISPRO (humaLOG) 300 UNIT/3 ML VIAL SQ SCH ×2 (08:31→12:41)
[2016-11-03] MEDS: INSULN ASP PRT/INSULIN ASPART 100 UNIT/ML 10 ML VIAL SQ SCH (08:36)
[2016-11-03] MEDS: SODIUM BICARBONATE TAB 650 MG TAB PO SCH ×2 (08:37→14:02)
[2016-11-03] MEDS: CALCITRIOL 0.25 MCG CAP PO SCH (08:37)
[2016-11-03] MEDS: CHOLESTYRAMINE (WITH SUGAR) 4 GM PACKET PO SCH (08:37)
[2016-11-03] MEDS: NYSTATIN 100,000 UNIT/ML SUSP 500,000 UNIT/5 ML CUP PO SCH ×2 (08:38→14:02)
[2016-11-03] MEDS: ISOSORBIDE MONONITRATE ER 30 MG TAB.ER.24H PO SCH (08:39)
[2016-11-03] MEDS: PANTOPRAZOLE 40 MG TABLET PO SCH (08:39)
[2016-11-03] MEDS: AZTREONAM 1 GM in SODIUM CHLORIDE 0.9% 50 ML IVPB SCH (08:39)
[2016-11-03 08:40] LABS: Calcium 8.8 mg/dL (8.4-10.2); Potassium 4.6 mmol/L (3.5-5.1)
[2016-11-03] MEDS: ASPIRIN 81 MG CHEW PO SCH (08:40)
[2016-11-03] MEDS: HEPARIN SODIUM,PORCINE 5,000 UNIT/ML 1 ML VIAL SQ SCH (08:40)
[2016-11-03] MEDS: ALLOPURINOL 100 MG TAB PO SCH (08:40)
[2016-11-03 09:01] VITALS: BP 159/71; TEMP 98.4
[2016-11-03] MEDS: ALBUTEROL NEBULIZED 2.5 MG/3 ML INHALATION SCH ×3 (09:46→15:53)
--- NOTE | 2016-11-03 10:32 | XR ---
EXAMINATION TYPE: XR chest 1V DATE OF EXAM: 11/03/2016 10:14 AM COMPARISON: 11/02/2016 HISTORY: Shortness of breath FINDINGS: There are bilateral pleural effusions with cardiomegaly and bibasilar infiltrate. There is a diffuse interstitial pattern. Hyperinflation suggests COPD. Arthropathy of the shoulders. No pneumothorax. S urgical clip overlying the right lung apex. IMPRESSION: 1. Findings remain suspicious for CHF. Underlying pneumonia at the left lung base not excluded.
--- NOTE | 2016-11-03 10:48 | ECHOF ---
Referral Reason: MEASUREMENTS -------- HEIGHT: 167.6 cm WEIGHT: 73.9 kg BP: IVSd: 1.3 cm (0.6 - 1.1) LVIDd: 3.9 cm (3.9 - 5.3) LVPWd: 1.5 cm (0.6 - 1.1) IVSs: 1.9 cm LVIDs: 2.2 cm LVPWs: 2.0 cm LAESV Index (A-L): 44.20 ml/m Ao Diam: 3.1 cm (2.0 - 3.7) AV Cusp: 1.3 cm (1.5 - 2.6) LA Diam: 4.1 cm (2.7 - 3.8) MV EXCURSION: 14.230 mm (> 18.000) MV EF SLOPE: 117 mm/s (70 - 150) EPSS: 1.1 cm MV E Micheal: 1.21 m/s MV DecT: 285 ms MV A Micheal: 0.71 m/s MV E/A Ratio: 1.70 AV maxP.15 mmHg AV meanP.11 mmHg AR PHT: 920 ms RAP: 5.00 mmHg RVSP: 33.08 mmHg FINDINGS -------- Sinus rhythm. This was a technically good study. There is mild concentric left ventricular hypertrophy. Overall left ventricular systolic function is normal with, an EF between 55 - 60 %. The right ventricle is normal in size and function. LA is severely dilated >40 ml/m2 The right atrium is normal in size. Aortic valve is trileaflet and is mildly thickened. Trace amount of aortic regurgitation. There is mild aortic stenosis present. The mitral valve leaflets are mildly thickened. Gdbzhfza-zd-[id number] mitral regurgitation is present. Mild tricuspid regurgitation present. The right ventricular systolic pressure, as measured by Doppler, is 33.08mmHg. Pulmonic valve appears structurally normal. The aortic root size is normal. The pericardium is normal. CONCLUSIONS -------- 1. Sinus rhythm. 2. There is mild aortic stenosis present. 3. The mitral valve leaflets are mildly thickened. 4. Bthhmege-qf-diclgk mitral regurgitation is present. 5. Mild tricuspid regurgitation present. 6. The right ventricular systolic pressure, as measured by Doppler, is 33.08mmHg. 7. Pulmonic valve appears structurally normal. 8. The aortic root size is normal. 9. The pericardium is normal. 10. This was a technically good study. 11. There is mild concentric left ventricular hypertrophy. 12. Overall left ventricular systolic function is normal with, an EF between 55 - 60 %. 13. The right ventricle is normal in size and function. 14. LA is severely dilated >40 ml/m2 15. The right atrium is normal in size. 16. Aortic valve is trileaflet and is mildly thickened. 17. Trace amount of aortic regurgitation. [employer]OPER [employer]: Megan Erwin RDCS
[2016-11-03] MEDS ORDERED: FUROSEMIDE 10 MG/ML 4 ML VIAL IV STA (10:49)
[2016-11-03 11:55] LABS: Glucose,Whole Blood 121 mg/dL (75-99)
[2016-11-03] MEDS: MULTIVITAMINS, THERA 1 EACH TAB PO SCH (12:40)
[2016-11-03] MEDS: CHOLECALCIFEROL 1,000 UNIT TAB PO SCH (12:40)
[2016-11-03] MEDS: LIDOCAINE 2% INJ 20 MG/ML SQ ONE ×2 (13:03→13:19)
--- NOTE | 2016-11-03 13:43 | IR ---
PICC LINE PLACEMENT: HISTORY: Infection requiring long-term antibiotic therapy PROCEDURE: Ultrasound and fluoroscopic guidance of PICC line placement. COMPLICATIONS: None ANESTHESIA: 1. 1% Lidocaine locally. FINDINGS/TECHNIQUE: The procedure was explained to the patient. The risks, complications, benefits and alternatives were discussed and any questions were answered. Informed consent was obtained. The patient was placed supine on the fluoroscopic table and prepped and draped in the usual sterile [facility] ion. Utilizing a 21 gauge needle and sonographic and fluoroscopic guidance, access in the vein was achieved and there is placement of a 0.018 guidewire. The vein is patent. A 4-F sheath was placed o diogo the guidewire. The guidewire and dilator were removed and a 4-F. PICC line was placed through th e sheath with the tip at the level of the SVC. The sheath was removed, the catheter was flushed and sutured into position. The patient was stable throughout the procedure and remained stable upon disc harge from the Department of Radiology. The vein puncture was patent under ultrasound. A allred scale image was obtained to document patency of the vein punctured. All elements of the maximal barrier technique were utilized. FLUOROSCOPY TIME: 0.6 minutes IMPRESSION: Successful PICC line placement under ultrasound and fluoroscopic guidance.
--- NOTE | 2016-11-03 13:58 | P.PN ---
Subjective Patient is seen in follow-up for acute kidney injury on chronic disease. She is currently being treated for E. coli bacteremia and urinary tract infection. She is nonoliguric. Patient has chronic kidney disease stage III with baseline creatinine in the range of 1.1 1.2 secondary to solitary left kidney. She denies any chest pain or shortness of breath. Appetite is fair. Vital signs are stable. General: The patient appeared well nourished and normally developed. HEENT: Head exam is unremarkable. Neck is without jugular venous distension. LUNGS: Lungs are clear to auscultation and percussion. Breath sounds decreased. HEART: Rate and Rhythm are regular. First and second heart sounds normal. No murmurs, rubs or gallops. ABDOMEN: Abdominal exam reveals normal bowel sounds. Non-tender and non- distended. No evidence of peritonitis. EXTREMITITES: No clubbing, cyanosis, or edema. Objective - Vital Signs Vital signs: Vital Signs Temp 98.4 F 11/03/16 12:03 Pulse 85 11/03/16 12:03 Resp 16 11/03/16 12:03 BP 159/71 11/03/16 12:03 Pulse Ox 97 11/03/16 12:03 Intake & Output 11/02/16 11/03/16 11/03/16 18:59 06:59 18:59 Intake Total 700 640 Output Total 2800 2000 Balance -2100 -1360 Intake: IV 50 Aztreonam 1 gm In Sodium 50 Chloride 0.9% 50 ml @ 100 mls/hr IVPB Q8HR [facility] Rx# :[id number] Intake, IV Titration 700 Amount Aztreonam 1 gm In Sodium 100 Chloride 0.9% 50 ml @ 100 mls/hr IVPB Q8HR [facility] Rx# :[id number] Sodium Chloride 0.9% 1, 600 000 ml @ 100 mls/hr IV . Q10H [facility] Rx#:[id number] Oral 590 Output: Urine 2800 2000 Other: # Voids 3 # Bowel Movements 1 - Labs CBC & Chem 7: 11/03/16 07:36 11/03/16 07:36 Labs: Abnormal Lab Results - Last 24 Hours (Table) 11/02/16 11/02/16 11/03/16 Range/Units 16:38 20:34 07:36 RBC 3.42 L (3.80-5.40) m/uL Hgb 10.7 L (11.4-16.0) gm/dL MCV 101.5 H (80.0-100.0) fL MCHC 30.7 L (31.0-37.0) g/dL Lymphocytes # 0.6 L (1.0-4.8) k/uL Chloride (98-107) mmol/L BUN (7-17) mg/dL Creatinine (0.52-1.04) mg/dL Glucose (74-99) mg/dL POC Glucose (mg/dL) 100 H 180 H (75-99) mg/dL 11/03/16 11/03/16 11/03/16 Range/Units 07:36 08:17 11:15 RBC (3.80-5.40) m/uL Hgb (11.4-16.0) gm/dL MCV (80.0-100.0) fL MCHC (31.0-37.0) g/dL Lymphocytes # (1.0-4.8) k/uL Chloride 111 H (98-107) mmol/L BUN 64 H (7-17) mg/dL Creatinine 1.83 H (0.52-1.04) mg/dL Glucose 105 H (74-99) mg/dL POC Glucose (mg/dL) 118 H 121 H (75-99) mg/dL Microbiology - Last 24 Hours (Table) 10/31/16 07:25 Blood Culture - Preliminary Blood No Growth after 72 hours 10/31/16 07:10 Blood Culture - Preliminary Blood No Growth after 72 hours Assessment and Plan Plan: Assessment: #1. Nonoliguric acute kidney injury secondary to ATN secondary to severe sepsis. Improving. Creatinine down to 1.83 today. #2. Chronic kidney disease stage III with baseline creatinine in the range of 1.1 1.2 secondary to solitary left kidney. #3. E. coli bacteremia and urinary tract infection. #4. Metabolic acidosis secondary to acute kidney injury. #5. History of right nephrectomy. Plan: Encourage oral intake. She is off all IV fluids. Avoid nephrotoxic agents and hypotensive episodes. Antibiotics per infectious disease her medications. Potential discharge today. She will need to follow-up as an outpatient in the next 1-2 weeks.
[2016-11-03] MEDS: traMADol 50 MG TAB PO PRN (14:01)
[2016-11-03 15:57] VITALS: PULSE 90
--- NOTE | 2016-11-04 07:37 | DS ---
DATE OF ADMISSION: 10/29/2016 DATE OF DISCHARGE: 11/03/2016 Patient is admitted with severe sepsis bacteremia, but patient went into pulmonary edema yesterday. Because of which I gave her Lasix. After which her respiratory symptoms improved. Patient will be given one more dose of IV Lasix today. I repeated the chest x-ray and ordered an echocardiogram. The echocardiogram showed normal ejection fraction. A chest x-ray did show continued mild congestive heart failure, but in my opinion it is improved. Patient has significant clinical improvement as well. Patient is not requiring any oxygen and patient will be discharged today. Patient will be started back on 40 mg of Lasix. Patient was seen and examined on the day of discharge. Vitals are stable. PHYSICAL EXAMINATION: GENERAL: The patient is alert and oriented x3, not in any acute distress. Well developed, well nourished. HEENT: Pupils are round and equally reacting to light. EOMI. No scleral icterus. No conjunctival pallor. Normocephalic, atraumatic. No pharyngeal erythema. No thyromegaly. CARDIOVASCULAR: S1 and S2 present. No murmurs, rubs, or gallops. PULMONARY: Chest is clear to auscultation, no wheezing or crackles. ABDOMEN: Soft, nontender, nondistended, normoactive bowel sounds. No palpable organomegaly. MUSCULOSKELETAL: No joint swelling or deformity. EXTREMITIES: No cyanosis, clubbing, or pedal edema. NEUROLOGICAL: Gross neurological examination did not reveal any focal deficits. SKIN: No rashes. Please refer to my depart summary for further details of discharge medications and please refer to my discharge summary from yesterday for further details and consider my yesterday's discharge summary as progress note. The patient is receiving a PICC line today and IV antibiotics. I spent greater than 35 minutes today as well in total discharge process.
== END 2016-11-03 16:53 | DRG 871 ==
LOC: 5MS5E 22:50
PROVIDERS: ADMIT Internal Medicine; ATTEND Internal Medicine
PROC: 02HV33Z Insertion of Infusion Device into Superior Vena Cava, Percutaneous Approach (ICD-10-PCS; principal; 2016-11-03 12:58)
PROC: B5181ZA Fluoroscopy of Superior Vena Cava using Low Osmolar Contrast, Guidance (ICD-10-PCS; principal; 2016-11-03 12:58)
PROC: B548ZZA Ultrasonography of Superior Vena Cava, Guidance (ICD-10-PCS; principal; 2016-11-03 12:58)
DX: A41.51 Sepsis due to Escherichia coli [E. coli] (principal); N17.0 Acute kidney failure with tubular necrosis; E44.0 Moderate protein-calorie malnutrition; L89.153 Pressure ulcer of sacral region, stage 3; I13.0 Hypertensive heart and chronic kidney disease with heart failure and stage 1 through stage 4 chronic kidney disease, or unspecified chronic kidney disease; E87.2 Acidosis; K52.0 Gastroenteritis and colitis due to radiation; I50.9 Heart failure, unspecified; E11.22 Type 2 diabetes mellitus with diabetic chronic kidney disease; N39.0 Urinary tract infection, site not specified; E86.0 Dehydration; D64.9 Anemia, unspecified; E03.9 Hypothyroidism, unspecified; B95.2 Enterococcus as the cause of diseases classified elsewhere; E78.5 Hyperlipidemia, unspecified; F32.9 Major depressive disorder, single episode, unspecified; K21.9 Gastro-esophageal reflux disease without esophagitis; Z74.01 Bed confinement status; R65.20 Severe sepsis without septic shock; N18.3 Chronic kidney disease, stage 3 (moderate); M10.9 Gout, unspecified; Y84.2 Radiological procedure and radiotherapy as the cause of abnormal reaction of the patient, or of later complication, without mention of misadventure at the time of the procedure; Z79.2 Long term (current) use of antibiotics; Z79.82 Long term (current) use of aspirin; Z79.899 Other long term (current) drug therapy; Z85.42 Personal history of malignant neoplasm of other parts of uterus; Z86.14 Personal history of Methicillin resistant Staphylococcus aureus infection; Z87.01 Personal history of pneumonia (recurrent); Z90.5 Acquired absence of kidney; Z93.6 Other artificial openings of urinary tract status
CPT/HCPCS: 36569; 71010; 74020; 76770; 76937; 77001; 80048; 80053; 81001; 83036; 84134; 85025; 87040; 87077; 87086; 87186; 87502; 93005; 93306; 94640; 94760

== ENCOUNTER → 2018-03-01 | Outpatient (CLI) | payer MEDICARE, OTHER ==
[2018-03-01 13:52] LABS: Basophils # (A) 0.1 k/uL (0-0.2); Basophils % (A) 1 %; Eosinophils # (A) 0.1 k/uL (0-0.7); Eosinophils % (A) 2 %; HCT 37.8 % (34.0-46.0); HGB 11.7 gm/dL (11.4-16.0); Lymphocytes # (A) 2.2 k/uL (1.0-4.8); Lymphocytes % (A) 23 %; MCH 30.4 pg (25.0-35.0); Mean Platelet Volume 7.2; Monocytes # (A) 0.5 k/uL (0-1.0); Monocytes % (A) 6 %; Neutrophils # (A) 6.4 k/uL (1.3-7.7); Neutrophils % (A) 68 %; Platelet Count 244 k/uL (150-450); RBC 3.85 m/uL (3.80-5.40); RDW 14.9 % (11.5-15.5); WBC 9.4 k/uL (3.8-10.6)
[2018-03-01 14:29] LABS: Albumin 3.6 g/dL (3.5-5.0); Calcium 9.2 mg/dL (8.4-10.2); Potassium 3.8 mmol/L (3.5-5.1); Total Bilirubin 0.4 mg/dL (0.2-1.3); Total Protein 5.9 g/dL (6.3-8.2)
[2018-03-01 21:36] LABS: Hemoglobin A1C 7.8 % (4.0-6.0)
== END | disposition home or self-care (01) ==
LOC: LABWHC1 13:16
PROVIDERS: ATTEND Family Medicine
DX: L89.890 Pressure ulcer of other site, unstageable (principal)
CPT/HCPCS: 36415; 80053; 83036; 84134; 85025

== ENCOUNTER 2018-07-08 18:15 | Inpatient (IN) | payer MEDICARE, OTHER ==
--- NOTE | 2018-07-08 18:30 | ED ---
Weakness HPI - General Stated complaint: weakness Time Seen by Provider: 07/08/18 18:17 Source: patient, EMS, RN notes reviewed, old records reviewed Mode of arrival: EMS - History of Present Illness Initial comments: This is a 87-year-old female with a history of renal cell cancer status post nephrectomy history of coronary artery disease CHF gout and hypothyroidism who was transferred from [facility] today after she presented with complaints of generalized weakness some altered mental status. She was found have a 26,000 white count elevated creatinine of 5.9 potassium was elevated 6.9 CO2 was 11. She was given treatment at that facility transferred here for further evaluation. Patient did have a creatinine of 5.9. BUN of 114and the lactic acid was elevated at 2.7 this is likely on the basis of dehydration and renal failure as well as a decubitus ulcer. Patient was given IV vancomycin. She was sent for further evaluation and higher level of care per reports she also has a decubitus ulcer at the sacrum. MD Complaint: generalized weakness - Related Data Home Medications Medication Instructions Recorded Confirmed Allopurinol [Zyloprim] 100 mg PO BID 01/22/15 07/08/18 Aspirin 81 mg PO DAILY 01/22/15 07/08/18 Insulin Aspart Protam & Aspart 20 unit SQ AC-BID 01/22/15 07/08/18 [NovoLOG MIX 70-30 Flexpen] Isosorbide Mononitrate ER [Imdur] 30 mg PO DAILY 01/22/15 07/08/18 Multivitamins, Thera [Multivitamin 1 tab PO DAILY 01/22/15 07/08/18 (formulary)] Omeprazole [PriLOSEC] 20 mg PO HS 01/22/15 07/08/18 Cholecalciferol [Vitamin D3] 5,000 unit PO DAILY 07/08/15 07/08/18 Calcitriol 0.25 mcg PO TUTHSA 02/04/16 07/08/18 Sodium Bicarbonate 325 mg PO TID 02/04/16 07/08/18 Levothyroxine Sodium [Synthroid] 25 mcg PO DAILY 10/30/16 07/08/18 Loperamide HCl [Loperamide] 2 mg PO QID PRN 10/30/16 07/08/18 Ferrous Sulfate [Iron (65 MG 325 mg PO DAILY 02/09/17 07/08/18 Elemental)] Acetaminophen [Tylenol Extra 500 mg PO Q6H PRN 08/22/17 07/08/18 Strength] Nitroglycerin Sl Tabs [Nitrostat] 0.4 mg SUBLINGUAL Q5M PRN 08/22/17 07/08/18 Furosemide [Lasix] 40 mg PO DAILY 07/08/18 07/08/18 Potassium Chloride ER [K-Dur 20] 20 meq PO DAILY 07/08/18 07/08/18 Previous Rx's Medication Instructions Recorded traMADol HCL [Ultram] 50 mg PO Q6HR PRN #20 tablet 08/29/17 Allergies Allergy/AdvReac Type Severity Reaction Status Date / Time adhesive Allergy Unknown Verified 07/08/18 19:51 cephalexin monohydrate Allergy Unknown Verified 07/08/18 19:51 [From Keflex] chlordiazepoxide Allergy Unknown Verified 07/08/18 19:51 [From Librax (with clidinium)] ciprofloxacin [From Cipro] Allergy Unknown Verified 07/08/18 19:51 ciprofloxacin HCl Allergy Unknown Verified 07/08/18 19:51 [From Cipro] clidinium bromide Allergy Unknown Verified 07/08/18 19:51 [From Librax (with clidinium)] codeine Allergy Unknown Verified 07/08/18 19:51 naloxone HCl [From Talwin NX] Allergy Unknown Verified 07/08/18 19:51 nitrofurantoin Allergy Unknown Verified 07/08/18 19:51 Penicillins Allergy Unknown Verified 07/08/18 19:51 pentazocine Allergy Unknown Verified 07/08/18 19:51 pentazocine HCl Allergy Unknown Verified 07/08/18 19:51 [From Talwin NX] prednisone Allergy Unknown Verified 07/08/18 19:51 sulfadiazine Allergy Unknown Verified 07/08/18 19:51 flu virus vaccine Allergy Unknown Uncoded 07/05/18 11:21 phosphate Allergy Unknown Uncoded 07/05/18 11:21 wire stiches Allergy Unknown Uncoded 07/05/18 11:21 Review of Systems ROS Statement: Those systems with pertinent positive or pertinent negative responses have been documented in the HPI. ROS Other: All systems not noted in ROS Statement are negative. Limitations: ROS unobtainable due to patients medical condition Past Medical History Past Medical History: Cancer, Chest Pain / Angina, Diabetes Mellitus, GERD/ Reflux, Hyperlipidemia, Hypertension, Pneumonia, Thyroid Disorder Additional Past Medical History / Comment(s): Hx Rheumatic fever Hx Uterine cancer and had radation which causes constant loose stools. Had bladder removed r/t uterine cancer and radiation. Has urostomy. Currently wound on coccyx ,pt stated has been recieving tx for 2 year., fx pelvis fx rt arm 1985, lt elbow BROKEN 1985,lt wrist FX 2000, GOUT. 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, VRE Date of last positivie culture/infection: 06/07/18-MRSA 07/09/15-VRE MDRO Source:: MRSA-BUTTOCK;VRE Urine Past Surgical History: Appendectomy, Back Surgery, Bladder Surgery, Cholecystectomy, Hysterectomy, Joint Replacement, Orthopedic Surgery, Tonsillectomy, Tonsillectomy Additional Past Surgical History / Comment(s): Total right knee, cataracts, BLADDER AND RT KIDNEY REMOVED WERE DAMAGED FROM RADIATION TREATMENTS,HAS UROSTOMY, NECK SX 1993,COLONOSCOPY, NERVE BLOCK 1998,BACK SX 1999,KNEE SX 1999, TEST ON GLANDS IN NECK,2000 HAS HAD 4 BACK SX HAS METAL IN PLACE, RT ARM SX ,LT ELBOW SX HAS PIN IN PLACE Past Anesthesia/Blood Transfusion Reactions: No Reported Reaction Additional Past Anesthesia/Blood Transfusion Reaction / Comment(s): blood transfusion 2001 Past Psychological History: Depression Additional Psychological History / Comment(s): , lives with grandson. No travels. experience. No animal exposures. No tobacco or alcohol use. Smoking Status: Never smoker Past Alcohol Use History: None Reported Past Drug Use History: None Reported - Past Family History Mother Family Medical History: Cancer Additional Family Medical History / Comment(s): mother age late 80's of leukemia Father Family Medical History: Cancer Additional Family Medical History / Comment(s): of cancer of the throat age 70's General Exam - General Exam Comments Initial Comments: This is a well-developed sec appearing female who is awake alert but confused General appearance: alert, lethargic Head exam: Present: atraumatic, normocephalic, normal inspection Eye exam: Present: normal appearance, PERRL, EOMI. Absent: scleral icterus, conjunctival injection, periorbital swelling ENT exam: Present: mucous membranes dry Neck exam: Present: normal inspection. Absent: tenderness, meningismus, lymphadenopathy Respiratory exam: Present: normal lung sounds bilaterally. Absent: respiratory distress, wheezes, rales, rhonchi, stridor Cardiovascular Exam: Present: regular rate, normal rhythm, normal heart sounds. Absent: systolic murmur, diastolic murmur, rubs, gallop, clicks GI/Abdominal exam: Present: soft, normal bowel sounds. Absent: distended, tenderness, guarding, rebound, rigid Rectal exam: Present: other (Sacral decubitus ulcer noted) Extremities exam: Present: normal inspection, full ROM, normal capillary refill. Absent: tenderness, pedal edema, joint swelling, calf tenderness Back exam: Present: normal inspection Neurological exam: Present: alert, altered, CN II-XII intact Psychiatric exam: Present: flat affect Skin exam: Present: warm, dry, normal color, other (Sacral ulceration noted.). Absent: rash Course Vital Signs 07/08/18 07/08/18 18:25 19:41 Temperature 97.8 F Pulse Rate 88 94 Respiratory 18 24 Rate Blood Pressure 115/46 109/45 O2 Sat by Pulse 97 Oximetry Medical Decision Making - Medical Decision Making I did review the material presented by the other hospital. X-ray shows no acute findings patient have an episode of vomiting here he Kayexalate she was given earlier. Patient will be admitted with consultation by nephrology. Additionally infectious disease will be consulted. His renal function further advice will be withheld at this time reevaluation. - Radiology Data Radiology results: report reviewed (I did review the imaging findings or is increased amount of stool however.), image reviewed Disposition Clinical Impression: Decubitus ulcer, Acute renal failure (ARF), Hyperkalemia, Dehydration, Lactic acidosis, Nausea and vomiting Disposition: ADMITTED IP TO THIS [facility] Condition: Serious Referrals: Ross Conde MD [Primary Care Provider] - 1-2 days
[2018-07-08] MEDS ORDERED: SODIUM CHLORIDE 0.9% 1,000 ML IV STA (18:33)
[2018-07-08] MEDS ORDERED: ONDANSETRON 4 MG/2 ML VIAL IVP STA (19:02)
--- NOTE | 2018-07-08 19:50 | XR ---
EXAMINATION TYPE: XR abdomen 1V DATE OF EXAM: 07/08/2018 7:26 PM CLINICAL HISTORY: Weakness and abdominal pain. TECHNIQUE: Two supine KUB images of the abdomen are obtained. COMPARISON: CT abdomen and pelvis August 24, 2017 FINDINGS: Scattered gas is seen in non-distended small bowel loops. Gas and fecal material is seen in non-distended colon. Numerous surgical clips are redemonstrated in the pelvis. Numerous cholecystect warren clips are redemonstrated. There is levoconvex scoliosis centered in the mid lumbar spine redemons trated. There is postsurgical change to the lower lumbar spine redemonstrated. Lung bases remain van r. IMPRESSION: Overall nonobstructive bowel gas pattern remains present.
[2018-07-08] MEDS ORDERED: ACETAMINOPHEN TAB 325 MG TAB PO PRN (20:07)
[2018-07-08] MEDS ORDERED: NALOXONE 0.4 MG/ML 1 ML VIAL IV PRN (20:07)
[2018-07-08] MEDS ORDERED: NITROGLYCERIN SL TABS 0.4 MG TAB SUBLINGUAL PRN (20:10)
[2018-07-08] MEDS ORDERED: SODIUM CHLORIDE 0.9% 500 ML 500 ML IV STA ×2 (20:11→20:13)
[2018-07-08] MEDS ORDERED: SODIUM POLYSTYRENE SULFONATE 15 GM/60 ML BOTTLE PO STA (20:12)
[2018-07-08 21:48] LABS: Albumin 2.6 g/dL (3.5-5.0); Total Bilirubin 1.2 mg/dL (0.2-1.3); Total Protein 5.2 g/dL (6.3-8.2)
[2018-07-08 22:08] LABS: Potassium 6.2 mmol/L (3.5-5.1)
[2018-07-08] MEDS ORDERED: LOPERAMIDE 2 MG CAP PO PRN (23:30)
[2018-07-08] MEDS: ALBUTEROL NEBULIZED 2.5 MG/3 ML INHALATION SCH (23:32)
[2018-07-09] MEDS ORDERED: ALBUTEROL NEB (CONC) 2.5 MG/0.5 ML INHALATION SCH
[2018-07-09] MEDS: SODIUM CHLORIDE 0.9% 1,000 ML IV SCH ×3 (00:07→10:36)
[2018-07-09] MEDS: ALLOPURINOL 100 MG TAB PO SCH ×3 (02:15→21:24)
[2018-07-09] MEDS: SODIUM BICARBONATE TAB 650 MG TAB PO SCH ×5 (02:15→21:25)
[2018-07-09] MEDS: LEVOTHYROXINE 25 MCG TAB PO SCH (06:34)
[2018-07-09 06:42] LABS: Anisocytosis Slight; Basophils % (A) 0 %; Eosinophils # (A) 0.1 k/uL (0-0.7); Eosinophils % (A) 0 %; HCT 35.3 % (34.0-46.0); Hypochromasia Marked; Lymphocytes # (A) 0.3 k/uL (1.0-4.8); Lymphocytes % (A) 1 %; MCH 30.6 pg (25.0-35.0); MCHC 31.3 g/dL (31.0-37.0); MCV 97.8 fL (80.0-100.0); Macrocytosis Slight; Monocytes # (A) 0.4 k/uL (0-1.0); Monocytes % (A) 2 %; Neutrophils # (A) 20.4 k/uL (1.3-7.7); Neutrophils % (A) 95 %; Platelet Count 177 k/uL (150-450); RBC 3.61 m/uL (3.80-5.40); RDW 16.1 % (11.5-15.5); WBC 21.4 k/uL (3.8-10.6)
[2018-07-09 07:00] LABS: Albumin 2.4 g/dL (3.5-5.0); Calcium 8.8 mg/dL (8.4-10.2); Total Bilirubin 1.5 mg/dL (0.2-1.3); Total Protein 5.1 g/dL (6.3-8.2)
[2018-07-09] MEDS ORDERED: SODIUM POLYSTYRENE SULFONATE 15 GM/60 ML BOTTLE PO STA (07:08)
[2018-07-09 07:15] LABS: Glucose,Whole Blood 242 mg/dL (75-99)
[2018-07-09] MEDS: INSULN ASP PRT/INSULIN ASPART 100 UNIT/ML 10 ML VIAL SQ SCH ×2 (07:58→17:14)
[2018-07-09] MEDS: PANTOPRAZOLE 40 MG/10 ML VIAL IV SCH (07:58)
[2018-07-09] MEDS: ISOSORBIDE MONONITRATE ER 30 MG TAB.ER.24H PO SCH (07:59)
[2018-07-09] MEDS: ASPIRIN 81 MG PO SCH (07:59)
[2018-07-09] MEDS: MULTIVITAMINS, THERA 1 EACH TAB PO SCH (08:00)
[2018-07-09] MEDS: CHOLECALCIFEROL 1,000 UNIT TAB PO SCH (08:00)
[2018-07-09] MEDS: FERROUS SULFATE 325 MG TAB PO SCH (08:00)
[2018-07-09] MEDS: ALBUTEROL NEBULIZED 2.5 MG/3 ML INHALATION SCH ×3 (08:38→20:11)
[2018-07-09] MEDS ORDERED: INSULIN REGULAR 100 UNIT/ML VIAL IV ONE (10:21)
[2018-07-09] MEDS ORDERED: DEXTROSE 50%-WATER 50 ML SYRINGE IVP STA (10:22)
[2018-07-09] MEDS ORDERED: SODIUM BICARB 8.4% 50 ML SYR (1 MEQ/ML) IV STA (10:22)
--- NOTE | 2018-07-09 10:26 | P.NPCON ---
History of Present Illness - Reason for Consult acute renal failure, metabolic acidosis - History of Present Illness Reason for consultation: Acute kidney injury and hyperkalemia History of present illness: Patient is a 87-year-old female seen in renal consultation for acute kidney injury and electrolyte imbalance. Patient went to [facility] with altered mental status and was noted to be in acute renal failure. Creatinine was 5.9 and she was also noted to be hyperkalemic and acidotic. Her lactic acid level was elevated. She was given IV vancomycin and subsequently transferred to [facility]. At the time of admission her potassium was 6.2 and creatinine was 5.99. Patient is currently quite weak and lethargic and does not provide reliable history. Looking at prior records it appears her baseline creatinine is in the range of 1.5-1.8. She does a history of diabetes mellitus. She was taking potassium supplementation as an outpatient which is currently held. She is maintained on normal saline at 1 50 mL an hour. Repeat potassium level was 6.0 and creatinine was 5.96 this morning. I don't see any NSAIDs and her home medications. She did receive 3 L of IV fluid in the ER. Vital signs are stable. General: The patient appeared well nourished and normally developed. HEENT: Head exam is unremarkable. Neck is without jugular venous distension. LUNGS: Lungs are clear to auscultation and percussion. Breath sounds decreased. HEART: Rate and Rhythm are regular. First and second heart sounds normal. No murmurs, rubs or gallops. ABDOMEN: Abdominal exam reveals normal bowel sounds. Non-tender and non- distended. No evidence of peritonitis. EXTREMITITES: No clubbing, cyanosis, or edema. Past Medical History Past Medical History: Cancer, Chest Pain / Angina, Diabetes Mellitus, GERD/ Reflux, Hyperlipidemia, Hypertension, Pneumonia, Thyroid Disorder Additional Past Medical History / Comment(s): Hx Rheumatic fever Hx Uterine cancer and had radation which causes constant loose stools. Had bladder removed r/t uterine cancer and radiation. Has urostomy. Currently wound on coccyx ,pt stated has been recieving tx for 2 year., fx pelvis fx rt arm 1985, lt elbow BROKEN 1985,lt wrist FX 2000, GOUT. 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, VRE Date of last positivie culture/infection: 06/07/18-MRSA 07/09/15-VRE MDRO Source:: MRSA-BUTTOCK;VRE Urine Past Surgical History: Appendectomy, Back Surgery, Bladder Surgery, Cholecystectomy, Hysterectomy, Joint Replacement, Orthopedic Surgery, Tonsillectomy, Tonsillectomy Additional Past Surgical History / Comment(s): Total right knee, cataracts, BLADDER AND RT KIDNEY REMOVED WERE DAMAGED FROM RADIATION TREATMENTS,HAS UROSTOMY, NECK SX 1993,COLONOSCOPY, NERVE BLOCK 1998,BACK SX 1999,KNEE SX 1999, TEST ON GLANDS IN NECK,2000 HAS HAD 4 BACK SX HAS METAL IN PLACE, RT ARM SX ,LT ELBOW SX HAS PIN IN PLACE Past Anesthesia/Blood Transfusion Reactions: No Reported Reaction Additional Past Anesthesia/Blood Transfusion Reaction / Comment(s): blood transfusion 2001 Past Psychological History: Depression Additional Psychological History / Comment(s): , lives with grandson. No travels. experience. No animal exposures. No tobacco or alcohol use. Smoking Status: Never smoker Past Alcohol Use History: None Reported Past Drug Use History: None Reported - Past Family History Mother Family Medical History: Cancer Additional Family Medical History / Comment(s): mother age late 80's of leukemia Father Family Medical History: Cancer Additional Family Medical History / Comment(s): of cancer of the throat age 70's Medications and Allergies Home Medications Medication Instructions Recorded Confirmed Type Allopurinol [Zyloprim] 100 mg PO BID 01/22/15 07/08/18 History Aspirin 81 mg PO DAILY 01/22/15 07/08/18 History Insulin Aspart Protam & Aspart 20 unit SQ AC-BID 01/22/15 07/08/18 History [NovoLOG MIX 70-30 Flexpen] Isosorbide Mononitrate ER [Imdur] 30 mg PO DAILY 01/22/15 07/08/18 History Multivitamins, Thera [Multivitamin 1 tab PO DAILY 01/22/15 07/08/18 History (formulary)] Omeprazole [PriLOSEC] 20 mg PO HS 01/22/15 07/08/18 History Cholecalciferol [Vitamin D3] 5,000 unit PO DAILY 07/08/15 07/08/18 History Calcitriol 0.25 mcg PO TUTHSA 02/04/16 07/08/18 History Sodium Bicarbonate 325 mg PO TID 02/04/16 07/08/18 History Levothyroxine Sodium [Synthroid] 25 mcg PO DAILY 10/30/16 07/08/18 History Loperamide HCl [Loperamide] 2 mg PO QID PRN 10/30/16 07/08/18 History Ferrous Sulfate [Iron (65 MG 325 mg PO DAILY 02/09/17 07/08/18 History Elemental)] Acetaminophen [Tylenol Extra 500 mg PO Q6H PRN 08/22/17 07/08/18 History Strength] Nitroglycerin Sl Tabs [Nitrostat] 0.4 mg SUBLINGUAL Q5M PRN 08/22/17 07/08/18 History traMADol HCL [Ultram] 50 mg PO Q6HR PRN #20 tablet 08/29/17 07/08/18 Rx Furosemide [Lasix] 40 mg PO DAILY 07/08/18 07/08/18 History Potassium Chloride ER [K-Dur 20] 20 meq PO DAILY 07/08/18 07/08/18 History Allergies Allergy/AdvReac Type Severity Reaction Status Date / Time adhesive Allergy Unknown Verified 07/08/18 19:51 cephalexin monohydrate Allergy Unknown Verified 07/08/18 19:51 [From Keflex] chlordiazepoxide Allergy Unknown Verified 07/08/18 19:51 [From Librax (with clidinium)] ciprofloxacin [From Cipro] Allergy Unknown Verified 07/08/18 19:51 ciprofloxacin HCl Allergy Unknown Verified 07/08/18 19:51 [From Cipro] clidinium bromide Allergy Unknown Verified 07/08/18 19:51 [From Librax (with clidinium)] codeine Allergy Unknown Verified 07/08/18 19:51 naloxone HCl [From Talwin NX] Allergy Unknown Verified 07/08/18 19:51 nitrofurantoin Allergy Unknown Verified 07/08/18 19:51 Penicillins Allergy Unknown Verified 07/08/18 19:51 pentazocine Allergy Unknown Verified 07/08/18 19:51 pentazocine HCl Allergy Unknown Verified 07/08/18 19:51 [From Talwin NX] prednisone Allergy Unknown Verified 07/08/18 19:51 sulfadiazine Allergy Unknown Verified 07/08/18 19:51 flu virus vaccine Allergy Unknown Uncoded 07/05/18 11:21 phosphate Allergy Unknown Uncoded 07/05/18 11:21 wire stiches Allergy Unknown Uncoded 07/05/18 11:21 Physical Exam Vitals: Vital Signs Temp Pulse Pulse Resp BP BP Pulse Ox 07/09/18 08:00 97.8 F 71 18 125/50 98 07/09/18 04:00 97.1 F L 68 18 113/59 96 07/09/18 00:08 98.2 F 86 20 100/68 100 07/09/18 00:00 89 20 07/08/18 23:11 97.7 F 86 26 H 123/61 95 07/08/18 22:57 97.4 F L 89 18 120/54 94 L 07/08/18 21:28 92 26 H 121/46 95 07/08/18 20:35 98.2 F 88 18 109/39 98 07/08/18 19:41 94 24 109/45 07/08/18 18:25 97.8 F 88 18 115/46 97 Intake and Output 07/08/18 07/09/18 07/09/18 22:59 06:59 14:59 Intake Total 1290 Output Total 500 Balance -500 1290 Intake: Intake, IV Titration 1200 Amount Sodium Chloride 0.9% 1, 1200 000 ml @ 150 mls/hr IV . Q6H40M [facility] Rx#:[id number] Oral 90 Output: Urine 500 Other: Voiding Method Indwelling Catheter Ileal Conduit (Right) Ileal Conduit (Right) # Voids 0 # Bowel Movements 0 Weight 68 kg 75 kg Results - Lab Results Most recent lab results Calcium 8.8 mg/dL (8.4-10.2) 07/09/18 06:21 07/09/18 06:21 07/09/18 06:21 Assessment and Plan Plan: Assessment: 1. Acute kidney injury secondary to ATN secondary to hypotension and intravascular volume depletion from nausea vomiting and poor oral intake. Creatinine 5.99 admission and is 5.96 today. Rule out obstructive uropathy. 2. Hyperkalemia secondary to acute kidney injury, metabolic acidosis and potassium supplementation. 3. Metabolic acidosis secondary to acute kidney injury and lactic acidosis. 4. Hypernatremia secondary to lack of oral water intake. 5. Diabetes mellitus. 6. 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 Baseline creatinine in the range of 1.5-1.8. Plan: Discontinue normal saline. Start isotonic sodium bicarbonate drip to be run at 150 mL an hour. 10 units of IV insulin with an amp of D50 now. Repeat potassium level at 2 PM today. Check urinalysis. Check renal ultrasound. Encouraged oral intake, incl free water. Continue to monitor renal function and urine output. Thank you for the consultation. I will continue to follow the patient with you during her hospital stay.
[2018-07-09 11:49] LABS: Glucose,Whole Blood 395 mg/dL (75-99)
--- NOTE | 2018-07-09 12:05 | P.CONS ---
History of Present Illness - Reason for Consult Consult date: 07/09/18 Decubitus ulcer - History of Present Illness This is an 87-year-old female who presented to [facility], [place] with generalized weakness and altered mental status. Patient apparently lives alone and has a patent caregiver. Her white count was 26,000, creatinine 5.9 potassium 6.9, CO2 11. Chest x-ray reported as mild effusion, abdominal x-ray showed nonobstructive bowel gas pattern. Urinalysis was reported as black, cloudy, blood 1+, WBCs 2-5, RBCs 2-5, blood negative, leukoesterase 2+, nitrate negative and urine culture obtained. She was treated at [place] including receiving a dose of vancomycin and was then transferred to [facility] emergency center for evaluation. Patient was then admitted to the cardiac stepdown unit. She has received 2 doses of Kayexalate but vomited after the first dose. Her potassium is 6.2, BUN 118 and creatinine 5.96. White count is 21.4, lactic acid initially 2. 1 repeat was 2.4, alkaline phosphatase 239. Albumin 2.6. Patient was disimpacted last evening, had 1 episode of emesis in the ER and is currently on clear liquids. Consult is in place for nephrology. She presents with a known coccyx pressure ulcer and follows with Dr. B[facility]. Her last evaluation was on July 05 for a stage III pressure ulcer at the coccyx and underwent debridement. Patient has been a long-term patient at the wound Center and has been seen by Dr. Brittany Cano. She has a remote history of uterine cancer with radiation therapy. Urostomy tube has been changed by nursing since admission. Patient has a known history of wound cultures positive for MRSA, enterococcus, beta hemolytic strep, Klebsiella, Morganella morganii. Patient remains very confused and unable to provide any information. Most of information is obtained from the records and from the patient's nurse. Review of Systems ROS unobtainable: due to mental status Past Medical History Past Medical History: Cancer, Chest Pain / Angina, Diabetes Mellitus, GERD/ Reflux, Hyperlipidemia, Hypertension, Pneumonia, Thyroid Disorder Additional Past Medical History / Comment(s): Hx Rheumatic fever Hx Uterine cancer and had radation which causes constant loose stools. Had bladder removed r/t uterine cancer and radiation. Has urostomy. Currently wound on coccyx ,pt stated has been recieving tx for 2 year., fx pelvis fx rt arm 1985, lt elbow BROKEN 1985,lt wrist FX 2000, GOUT. 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-VRE MDRO Source:: MRSA-BUTTOCK;VRE Urine Past Surgical History: Appendectomy, Back Surgery, Bladder Surgery, Cholecystectomy, Hysterectomy, Joint Replacement, Orthopedic Surgery, Tonsillectomy, Tonsillectomy Additional Past Surgical History / Comment(s): Total right knee, cataracts, BLADDER AND RT KIDNEY REMOVED WERE DAMAGED FROM RADIATION TREATMENTS,HAS UROSTOMY, NECK SX 1993,COLONOSCOPY, NERVE BLOCK 1998,BACK SX 1999,KNEE SX 1999, TEST ON GLANDS IN NECK,2000 HAS HAD 4 BACK SX HAS METAL IN PLACE, RT ARM SX ,LT ELBOW SX HAS PIN IN PLACE Past Anesthesia/Blood Transfusion Reactions: No Reported Reaction Additional Past Anesthesia/Blood Transfusion Reaction / Comm: blood transfusion 2001 Past Psychological History: Depression Additional Psychological History / Comment(s): , lives with grandson. No travels. experience. No animal exposures. No tobacco or alcohol use. Smoking Status: Never smoker Past Alcohol Use History: None Reported Past Drug Use History: None Reported - Past Family History Mother Family Medical History: Cancer Additional Family Medical History / Comment(s): mother age late 80's of leukemia Father Family Medical History: Cancer Additional Family Medical History / Comment(s): of cancer of the throat age 70's Medications and Allergies Home Medications Medication Instructions Recorded Confirmed Type Allopurinol [Zyloprim] 100 mg PO BID 01/22/15 07/08/18 History Aspirin 81 mg PO DAILY 01/22/15 07/08/18 History Insulin Aspart Protam & Aspart 20 unit SQ AC-BID 01/22/15 07/08/18 History [NovoLOG MIX 70-30 Flexpen] Isosorbide Mononitrate ER [Imdur] 30 mg PO DAILY 01/22/15 07/08/18 History Multivitamins, Thera [Multivitamin 1 tab PO DAILY 01/22/15 07/08/18 History (formulary)] Omeprazole [PriLOSEC] 20 mg PO HS 01/22/15 07/08/18 History Cholecalciferol [Vitamin D3] 5,000 unit PO DAILY 07/08/15 07/08/18 History Calcitriol 0.25 mcg PO TUTHSA 02/04/16 07/08/18 History Sodium Bicarbonate 325 mg PO TID 02/04/16 07/08/18 History Levothyroxine Sodium [Synthroid] 25 mcg PO DAILY 10/30/16 07/08/18 History Loperamide HCl [Loperamide] 2 mg PO QID PRN 10/30/16 07/08/18 History Ferrous Sulfate [Iron (65 MG 325 mg PO DAILY 02/09/17 07/08/18 History Elemental)] Acetaminophen [Tylenol Extra 500 mg PO Q6H PRN 08/22/17 07/08/18 History Strength] Nitroglycerin Sl Tabs [Nitrostat] 0.4 mg SUBLINGUAL Q5M PRN 08/22/17 07/08/18 History traMADol HCL [Ultram] 50 mg PO Q6HR PRN #20 tablet 08/29/17 07/08/18 Rx Furosemide [Lasix] 40 mg PO DAILY 07/08/18 07/08/18 History Potassium Chloride ER [K-Dur 20] 20 meq PO DAILY 07/08/18 07/08/18 History Allergies Allergy/AdvReac Type Severity Reaction Status Date / Time adhesive Allergy Unknown Verified 07/08/18 19:51 cephalexin monohydrate Allergy Unknown Verified 07/08/18 19:51 [From Keflex] chlordiazepoxide Allergy Unknown Verified 07/08/18 19:51 [From Librax (with clidinium)] ciprofloxacin [From Cipro] Allergy Unknown Verified 07/08/18 19:51 ciprofloxacin HCl Allergy Unknown Verified 07/08/18 19:51 [From Cipro] clidinium bromide Allergy Unknown Verified 07/08/18 19:51 [From Librax (with clidinium)] codeine Allergy Unknown Verified 07/08/18 19:51 naloxone HCl [From Talwin NX] Allergy Unknown Verified 07/08/18 19:51 nitrofurantoin Allergy Unknown Verified 07/08/18 19:51 Penicillins Allergy Unknown Verified 07/08/18 19:51 pentazocine Allergy Unknown Verified 07/08/18 19:51 pentazocine HCl Allergy Unknown Verified 07/08/18 19:51 [From Stephan BROCK] prednisone Allergy Unknown Verified 07/08/18 19:51 sulfadiazine Allergy Unknown Verified 07/08/18 19:51 flu virus vaccine Allergy Unknown Uncoded 07/05/18 11:21 phosphate Allergy Unknown Uncoded 07/05/18 11:21 wire stiches Allergy Unknown Uncoded 07/05/18 11:21 Physical Exam Vitals: Vital Signs Temp Pulse Pulse Resp BP BP Pulse Ox 07/09/18 08:00 97.8 F 71 18 125/50 98 07/09/18 04:00 97.1 F L 68 18 113/59 96 07/09/18 00:08 98.2 F 86 20 100/68 100 07/09/18 00:00 89 20 07/08/18 23:11 97.7 F 86 26 H 123/61 95 07/08/18 22:57 97.4 F L 89 18 120/54 94 L 07/08/18 21:28 92 26 H 121/46 95 07/08/18 20:35 98.2 F 88 18 109/39 98 07/08/18 19:41 94 24 109/45 07/08/18 18:25 97.8 F 88 18 115/46 97 Intake and Output 07/08/18 07/09/18 07/09/18 22:59 06:59 14:59 Intake Total 1290 Output Total 500 Balance -500 1290 Intake: Intake, IV Titration 1200 Amount Sodium Chloride 0.9% 1, 1200 000 ml @ 150 mls/hr IV . Q6H40M [facility] Rx#:[id number] Oral 90 Output: Urine 500 Other: Voiding Method Indwelling Catheter Ileal Conduit (Right) Ileal Conduit (Right) # Voids 0 # Bowel Movements 0 Weight 68 kg 75 kg Gen: This is an 87-year-old female. She is in bed and calling out for [employer]. Patient is unable to follow any directions. HEENT: Head is atraumatic, normocephalic. Pupils equal, round. Sclerae is anicteric. Conjunctiva slightly pale. NECK oral mucous membranes are dry.: Supple. No JVD. No lymphadenopathy. No thyromegaly. LUNGS: Clear to auscultation. No wheezes or rhonchi. No intercostal retractions. HEART: Regular rate and rhythm. No murmur. ABDOMEN: Soft. Bowel sounds are present. No masses. No tenderness. EXTREMETIES: trace edema to the lower extremities. No wounds noted on the extremities. Evaluation of sacral ulcer deferred to Dr. Orozco. NEUROLOGICAL: Patient is awake, alert and oriented x3. Cranial nerves 2 through 12 are grossly intact. Results Results: Laboratory Results WBC 21.4 k/uL (3.8-10.6) H 07/09/18 06:21 RBC 3.61 m/uL (3.80-5.40) L 07/09/18 06:21 Hgb 11.0 gm/dL (11.4-16.0) L 07/09/18 06:21 Hct 35.3 % (34.0-46.0) 07/09/18 06:21 MCV 97.8 fL (80.0-100.0) 07/09/18 06:21 MCH 30.6 pg (25.0-35.0) 07/09/18 06:21 MCHC 31.3 g/dL (31.0-37.0) 07/09/18 06:21 RDW 16.1 % (11.5-15.5) H 07/09/18 06:21 Plt Count 177 k/uL (150-450) 07/09/18 06:21 Neutrophils % 95 % 07/09/18 06:21 Lymphocytes % 1 % 07/09/18 06:21 Monocytes % 2 % 07/09/18 06:21 Eosinophils % 0 % 07/09/18 06:21 Basophils % 0 % 07/09/18 06:21 Neutrophils # 20.4 k/uL (1.3-7.7) H 07/09/18 06:21 Lymphocytes # 0.3 k/uL (1.0-4.8) L 07/09/18 06:21 Monocytes # 0.4 k/uL (0-1.0) 07/09/18 06:21 Eosinophils # 0.1 k/uL (0-0.7) 07/09/18 06:21 Basophils # 0.0 k/uL (0-0.2) 07/09/18 06:21 Hypochromasia Marked 07/09/18 06:21 Anisocytosis Slight 07/09/18 06:21 Macrocytosis Slight 07/09/18 06:21 Sodium 147 mmol/L (137-145) H 07/09/18 06:21 Potassium 6.0 mmol/L (3.5-5.1) H 07/09/18 06:21 Chloride 117 mmol/L (98-107) H 07/09/18 06:21 Carbon Dioxide 14 mmol/L (22-30) L 07/09/18 06:21 Anion Gap 16 mmol/L 07/09/18 06:21 BUN 118 mg/dL (7-17) H* 07/09/18 06:21 Creatinine 5.96 mg/dL (0.52-1.04) H 07/09/18 06:21 Est GFR (CKD-EPI)AfAm 7 (>60 ml/min/1.73 sqM) 07/09/18 06:21 Est GFR (CKD-EPI)NonAf 6 (>60 ml/min/1.73 sqM) 07/09/18 06:21 Glucose 263 mg/dL (74-99) H 07/09/18 06:21 POC Glucose (mg/dL) 395 mg/dL (75-99) H 07/09/18 11:46 POC Glu Plunger Scoop Operator ID Jamia Sutherland 07/09/18 11:46 Lactic Ac Sepsis Rflx Y 07/08/18 22:34 Plasma Lactic Acid Ramez 2.4 mmol/L (0.7-2.0) H* 07/09/18 02:06 Calcium 8.8 mg/dL (8.4-10.2) 07/09/18 06:21 Total Bilirubin 1.5 mg/dL (0.2-1.3) H 07/09/18 06:21 AST 21 U/L (14-36) 07/09/18 06:21 ALT 38 U/L (9-52) 07/09/18 06:21 Alkaline Phosphatase 218 U/L (38-126) H 07/09/18 06:21 Total Protein 5.1 g/dL (6.3-8.2) L 07/09/18 06:21 Albumin 2.4 g/dL (3.5-5.0) L 07/09/18 06:21 CBC & Chem 7: 07/10/18 06:48 07/10/18 06:48 Labs: Abnormal Lab Results - Last 24 Hours (Table) 07/08/18 07/08/18 07/09/18 Range/Units 21:00 21:42 02:06 WBC (3.8-10.6) k/uL RBC (3.80-5.40) m/uL Hgb (11.4-16.0) gm/dL RDW (11.5-15.5) % Neutrophils # (1.3-7.7) k/uL Lymphocytes # (1.0-4.8) k/uL Sodium (137-145) mmol/L Potassium 6.2 H* (3.5-5.1) mmol/L Chloride 113 H (98-107) mmol/L Carbon Dioxide 14 L (22-30) mmol/L BUN 116 H* (7-17) mg/dL Creatinine 5.99 H (0.52-1.04) mg/dL Glucose 270 H (74-99) mg/dL POC Glucose (mg/dL) (75-99) mg/dL Plasma Lactic Acid Ramez 2.1 H* 2.4 H* (0.7-2.0) mmol/L Total Bilirubin (0.2-1.3) mg/dL Alkaline Phosphatase 239 H (38-126) U/L Total Protein 5.2 L (6.3-8.2) g/dL Albumin 2.6 L (3.5-5.0) g/dL 07/09/18 07/09/18 07/09/18 Range/Units 06:21 06:21 07:10 WBC 21.4 H (3.8-10.6) k/uL RBC 3.61 L (3.80-5.40) m/uL Hgb 11.0 L (11.4-16.0) gm/dL RDW 16.1 H (11.5-15.5) % Neutrophils # 20.4 H (1.3-7.7) k/uL Lymphocytes # 0.3 L (1.0-4.8) k/uL Sodium 147 H (137-145) mmol/L Potassium 6.0 H (3.5-5.1) mmol/L Chloride 117 H (98-107) mmol/L Carbon Dioxide 14 L (22-30) mmol/L BUN 118 H* (7-17) mg/dL Creatinine 5.96 H (0.52-1.04) mg/dL Glucose 263 H (74-99) mg/dL POC Glucose (mg/dL) 242 H (75-99) mg/dL Plasma Lactic Acid Ramez (0.7-2.0) mmol/L Total Bilirubin 1.5 H (0.2-1.3) mg/dL Alkaline Phosphatase 218 H (38-126) U/L Total Protein 5.1 L (6.3-8.2) g/dL Albumin 2.4 L (3.5-5.0) g/dL Assessment and Plan Plan: This is an 87-year-old female who presents to the hospital with significant electrolyte abnormalities with hypernatremia, hyperkalemia, hyperchloremia, metabolic acidosis, acute kidney injury. Patient presents with stage III coccyx pressure ulcer. Local wound care will be addressed. Urostomy tube has been exchanged. Antibiotics will be added with daptomycin and Azactam. Patient is noted to have multiple antibiotic ALLERGIES. Continue supportive care. Further recommendations as patient progresses. The above dictated assessment and findings were discussed with Dr. Orozco. The impression and plan of care have been directed as dictated. Nora Beauchamp nurse practitioner acting as scribe for Dr. Orozco.
[2018-07-09] MEDS: ONDANSETRON 4 MG/2 ML VIAL IVP PRN ×2 (12:23→21:34)
--- NOTE | 2018-07-09 12:33 | US ---
EXAMINATION TYPE: US kidneys/renal and bladder DATE OF EXAM: 07/09/2018 COMPARISON: CT CLINICAL HISTORY: nasrin. EXAM MEASUREMENTS: Right Kidney: nephrectomy Left Kidney: 12.2 x 3.0 x 3.2 cm Patient unable to cooperate with examiner. Unable to move, therefore bladder area and right kidney ar ea pictures were not taken Right Kidney: nephrectomy Left Kidney: No hydronephrosis or nephrolithiasis Bladder: No images submitted IMPRESSION: Post right nephrectomy with no evidence of hydronephrosis or nephrolithiasis on the left.
[2018-07-09] MEDS: DEXTROSE 5% IN WATER 1,000 ML with SODIUM BICARB (1 MEQ/ML) 150 ML IV SCH (13:38)
[2018-07-09] MEDS: INSULIN ASPART 100 UNIT/ML 1 ML 10 ML VIAL SQ SCH ×3 (14:25→21:25)
[2018-07-09 17:04] LABS: Glucose,Whole Blood 337 mg/dL (75-99)
[2018-07-09 17:30] LABS: Appearance,Urine Cloudy (Clear); Bacteria,Urine Many /hpf; Bilirubin,Urine Negative (Negative); Blood,Urine Moderate (Negative); Color,Urine Yellow; Glucose,Urine (UA) Negative (Negative); Hyaline Casts,Urine 5 /lpf (0-2); Ketones,Urine Trace (Negative); Leukocyte Esterase,Urine Large (Negative); Mucus,Urine Rare /hpf; Nitrite,Urine Negative (Negative); Protein,Urine 1+ (Negative); RBC,Urine 55 /hpf (0-5); Specific Gravity,Urine 1.014 (1.001-1.035); Squamous Epithelial Cell,Urine 1 /hpf (0-4); Urobilinogen,Urine <2.0 mg/dL (<2.0); WBC,Urine 126 /hpf (0-5)
[2018-07-09] MEDS ORDERED: INSULIN ASPART 100 UNIT/ML 1 ML 10 ML VIAL SQ SCH (17:30)
[2018-07-09] MEDS: DAPTOmycin 500 MG in SODIUM CHLORIDE 0.9% 50 ML IVPB SCH (19:03)
--- NOTE | 2018-07-09 20:49 | HP ---
HISTORY AND PHYSICAL DATE OF ADMISSION: 07/08/2018 DATE OF SERVICE: 07/09/2018 PRESENTING COMPLAINT: Weak, tired. HISTORY OF PRESENTING COMPLAINT: This is an 87-year-old patient who follows with Dr. Conde. Transferred from [facility]. The patient has a rather extensive medical history. Chronic stable medical conditions include right renal cancer with right nephrectomy, severe sigmoid diverticulosis, CHF with diastolic dysfunction, chronic kidney disease with a baseline creatinine of 1.5-1.8, hypertension, hyperlipidemia, hypothyroid, left abdominal wall hernia, a stage IV sacral decubitus. Diabetes, GERD, uterine cancer with radiation treatment with the bladder removed. Patient has a urostomy. The patient presented there feeling weak, tired and run down. The patient found to have a BUN of 114, creatinine of 5.9. Lactic acid was 2.7. UA did show 2+ leuko esterase. White count was 25. The patient is afebrile. Blood pressure is running on the lower side, was given 1 dose of vancomycin. The patient's pulse ox 98% on room air. Chest x-ray was reported to show question possible infiltrate. EKG showed incomplete left bundle branch block. The patient is transferred here for further workup with consultations for Infectious Disease and Nephrology. The patient is rather weak, tired and lethargic, barely able to answer questions. The patient also had hyperkalemia, was given a cocktail of medications for the same. REVIEW OF SYSTEMS: Difficult to obtain. Patient is rather lethargic. Dozes off. PAST MEDICAL HISTORY: Renal cell carcinoma with right nephrectomy, bladder cancer, sigmoid diverticulosis, severe CHF from diastolic dysfunction, chronic kidney disease stage 3, baseline creatinine 1.5-1.8, hypertension, hyperlipidemia, hypothyroid, left abdominal wall hernia, stage IV sacral decubitus ulcer, diabetes, GERD, uterine cancer treated with radiation treatment. Bladder was removed with resulting urostomy. PAST SURGICAL HISTORY: Appendectomy, back surgery, bladder surgery, cholecystectomy, hysterectomy, joint replacement, tonsillectomy, right total knee, cataracts, bladder and right kidney removed, damage from radiation treatment, has a urostomy, nerve block for back surgery in the past, right arm surgery, left elbow has a pin in place. PSYCH HISTORY: Depression. SOCIAL HISTORY: Lives with her grandson. No smoking. No alcohol. FAMILY HISTORY: Mother of leukemia in 80s. HOME MEDICATIONS: 1. Ultram 50 mg q.6h p.r.n. 2. Sodium bicarb 325 p.o. t.i.d. 3. Potassium 20 mEq p.o. daily. 4. Prilosec 20 mg p.o. q.h.s. 5. Nitrostat 0.4 sublingual q.5 p.r.n. 6. Multivitamin 1 tablet p.o. daily. 7. Loperamide 2 mg p.o. q.i.d. p.r.n. 8. Synthroid 25 mcg p.o. daily. 9. Imdur ER 30 mg p.o. daily. 10.NovoLog Mix 70/30 20 units subcu a.c. b.i.d. 11.Lasix 40 mg p.o. daily. 12.Vitamin D3 5000 units p.o. daily. 13.Calcitriol 0.25 p.o. Monday, , Monday. 14.Aspirin 81 mg a day. 15.Allopurinol 100 mg p.o. b.i.d. 16.Tylenol 500 mg q.6h p.r.n. ALLERGIES: MULTIPLE TO INCLUDE ADHESIVES, KEFLEX, CHLORDIAZEPOXIDE, CIPRO, LIBRAX, CODEINE, NALOXONE, NITROFURANTOIN, PENICILLIN, PENTAZOCINE, ZOSYN, PREDNISONE, SULFA, [QAMARKER]STITCHES. PHYSICAL EXAMINATION: VITAL SIGNS: Vital signs on presentation: Temperature 97.8, pulse 80, respiratory 18, blood pressure 115/46, pulse ox 97% on room air. GENERAL APPEARANCE: Well-built, lying in bed, rather tired, lethargic. EYES: Pupils equal. Conjunctivae pale. HEENT: External appearance of nose and ears normal. Oral cavity dry. NECK: Short, thick. JVD unable to assess. Mass not palpable. RESPIRATORY: Effort normal. LUNGS: Decreased breath sounds. CARDIOVASCULAR: 1st and 2nd sounds normal. Some edema. ABDOMEN: Abdomen has a left abdominal wall hernia. Bowels can be palpated. Right-sided urostomy bag is present. No tenderness. No liver or spleen palpable. LYMPHATICS: No lymph nodes palpable in the neck and axilla. PSYCHIATRY: Patient is rather lethargic. May answer questions. DERMATOLOGICAL: The patient has got red skin in the lower back area with what is probably stage IV decubitus with a breakdown of skin and skin going down to the bone. NEUROLOGICAL: Pupils equal. No facial asymmetry. Does move her limbs. DERMATOLOGICAL: Diffuse bruising of the skin is also present. INVESTIGATIONS: White count 21.4, hemoglobin 11, platelets 177. Initial labs: Potassium 6.2, BUN 116, creatinine 5.99, glucose 270, albumin 2.6. Abdominal x-ray, nonobstructive pattern. Chest x-ray from [facility] reports infiltrate. EKG tracing personally reviewed by me from [facility] shows incomplete left bundle branch block. ASSESSMENT: 1. Acute kidney injury, nonoliguric, probably from acute tubular necrosis and including increased from hypertension and diuretics. 2. History of right renal cell carcinoma with nephrectomy. 3. History of bladder uterine cancer treated with radiation treatment with bladder removal and now resulting urostomy. 4. Severe sigmoid diverticulosis per recent colonoscopy. 5. Chronic congestive heart failure from diastolic dysfunction. 6. Chronic kidney disease stage 3 probably from diabetic nephropathy and nephrosclerosis. 7. Essential hypertension. 8. Hyperlipidemia. 9. Hypothyroidism. 10.Abdominal ventral wall hernia, nonobstructed. 11.Stage IV sacral decubitus ulcer, present on admission. 12.Diabetes mellitus type 2, chronically on insulin, uncontrolled with hyperglycemia. 13.Gastroesophageal reflux disease. 14.Chronic medical debility. 15.Acute metabolic encephalopathy from multiple electrolytes abnormalities. 16.Questionable/possible urinary tract infection. 17.Possible pneumonia, could be aspiration. 18.CODE STATUS: DO NOT RESUSCITATE. PLAN: Home medications are resumed. Renal offensive drugs have been held off. The patient's hyperkalemia was treated. Consultations made to Nephrology, Infectious Disease. The patient's prognosis is guarded, given multiple comorbidities and problems. Currently no family is present. Copy to Dr. Conde. MMEVAL / IJN: [id number] /
[2018-07-09 20:52] LABS: Glucose,Whole Blood 274 mg/dL (75-99)
[2018-07-09] MEDS: traMADol 50 MG TAB PO PRN (21:24)
[2018-07-10] MEDS: DEXTROSE 5% IN WATER 1,000 ML with SODIUM BICARB (1 MEQ/ML) 150 ML IV SCH ×3 (02:14→11:32)
[2018-07-10 06:01] LABS: Glucose,Whole Blood 163 mg/dL (75-99)
[2018-07-10] MEDS: INSULN ASP PRT/INSULIN ASPART 100 UNIT/ML 10 ML VIAL SQ SCH ×2 (06:56→17:54)
[2018-07-10] MEDS: LEVOTHYROXINE 25 MCG TAB PO SCH (06:56)
[2018-07-10] MEDS: INSULIN ASPART 100 UNIT/ML 1 ML 10 ML VIAL SQ SCH ×4 (06:57→21:13)
[2018-07-10 07:28] LABS: Anisocytosis Slight; Basophils % (A) 0 %; Eosinophils % (A) 0 %; HCT 34.8 % (34.0-46.0); HGB 10.4 gm/dL (11.4-16.0); Hypochromasia Slight; Lymphocytes # (A) 0.7 k/uL (1.0-4.8); Lymphocytes % (A) 4 %; MCH 28.5 pg (25.0-35.0); MCHC 29.8 g/dL (31.0-37.0); MCV 95.5 fL (80.0-100.0); Mean Platelet Volume 7.9; Monocytes # (A) 0.4 k/uL (0-1.0); Monocytes % (A) 2 %; Neutrophils # (A) 15.1 k/uL (1.3-7.7); Neutrophils % (A) 90 %; Platelet Count 145 k/uL (150-450); RBC 3.64 m/uL (3.80-5.40); RDW 16.5 % (11.5-15.5); WBC 16.8 k/uL (3.8-10.6)
[2018-07-10] MEDS: ALBUTEROL NEBULIZED 2.5 MG/3 ML INHALATION SCH ×3 (07:36→20:28)
[2018-07-10 07:40] LABS: Albumin 2.3 g/dL (3.5-5.0); Calcium 8.4 mg/dL (8.4-10.2); Total Bilirubin 1.7 mg/dL (0.2-1.3); Total Protein 4.9 g/dL (6.3-8.2)
--- NOTE | 2018-07-10 08:04 | P.CON ---
Consult Note - . Consult date: 07/09/18 Assessment/Plan:: This is an 87-year-old female who presented to [facility] with generalized weakness and altered mental status. Patient apparently lives alone and has a patent caregiver. Her white count was 26,000, creatinine 5.9 potassium 6.9, CO2 11. Chest x-ray reported as mild effusion, abdominal x-ray showed nonobstructive bowel gas pattern. Urinalysis was reported as black, cloudy, blood 1+, WBCs 2-5, RBCs 2-5, blood negative, leukoesterase 2+, nitrate negative and urine culture obtained. She was treated at [place] including receiving a dose of vancomycin and was then transferred to [facility] emergency center for evaluation. Patient was then admitted to the cardiac stepdown unit. She has received 2 doses of Kayexalate but vomited after the first dose. Her potassium is 6.2, BUN 118 and creatinine 5.96. White count is 21.4, lactic acid initially 2. 1 repeat was 2.4, alkaline phosphatase 239. Albumin 2.6. Patient was disimpacted last evening, had 1 episode of emesis in the ER and is currently on clear liquids. Consult is in place for nephrology. She presents with a known coccyx pressure ulcer and follows with Dr. Berman [facility]. Her last evaluation was on July 05 for a stage III pressure ulcer at the coccyx and underwent debridement. Patient has been a long-term patient at the wound Center and has been seen by Dr. Brittany Cano. She has a remote history of uterine cancer with radiation therapy. Urostomy tube has been changed by nursing since admission. Patient has a known history of wound cultures positive for MRSA, enterococcus, beta hemolytic strep, Klebsiella, Morganella morganii. Patient remains very confused and unable to provide any information. Most of information is obtained from the records and from the patient's nurse. Please see the consult note is dictated by nurse practitioner Mrs. Nora Beauchamp. This 87-year-old woman presents acutely ill with what appears to be sepsis from urinary tract, has chronic coccyx ulceration that has been followed wound center as well as with plastic surgery. There is leukocytosis on the base of the underlying sepsis, and with her history of multiple prior infections antimicrobial therapy with Daptomycin and Azactam will be utilize while cultures are in process. She is receiving resuscitation and supportive care wound care is with the foam based dressing. I agree with evaluation, assessment and plan as dictated by nurse practitioner Mrs. Nora Beauchamp.
[2018-07-10] MEDS ORDERED: AZTREONAM 1 GM in SODIUM CHLORIDE 0.9% 50 ML IVPB STA (08:07)
[2018-07-10] MEDS: CALCITRIOL 0.25 MCG CAP PO SCH (09:49)
[2018-07-10] MEDS: ISOSORBIDE MONONITRATE ER 30 MG TAB.ER.24H PO SCH (09:49)
[2018-07-10] MEDS: SODIUM BICARBONATE TAB 650 MG TAB PO SCH ×2 (09:50→19:50)
[2018-07-10] MEDS: ASPIRIN 81 MG PO SCH (09:50)
[2018-07-10] MEDS: traMADol 50 MG TAB PO PRN ×2 (09:50→15:10)
[2018-07-10] MEDS: ALLOPURINOL 100 MG TAB PO SCH ×2 (09:50→19:50)
[2018-07-10] MEDS: PANTOPRAZOLE 40 MG/10 ML VIAL IV SCH (09:50)
[2018-07-10] MEDS: ONDANSETRON 4 MG/2 ML VIAL IVP PRN (09:50)
[2018-07-10] MEDS: CHOLECALCIFEROL 1,000 UNIT TAB PO SCH (11:18)
--- NOTE | 2018-07-10 11:39 | P.PN ---
Subjective Patient is seen in follow-up for acute kidney injury on chronic kidney disease. 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 Creatinine was 5.99 on admission and is mildly improved to 5.25 today. Patient remains quite lethargic. She has a urostomy. Hyperkalemia has resolved. Oral intake is poor. Vital signs are stable. General: The patient appeared well nourished and normally developed. HEENT: Head exam is unremarkable. Neck is without jugular venous distension. LUNGS: Breath sounds decreased. HEART: Rate and Rhythm are regular. First and second heart sounds normal. No murmurs, rubs or gallops. ABDOMEN: Abdominal exam reveals normal bowel sounds. Non-tender and non- distended. EXTREMITITES: No clubbing, cyanosis, or edema. Objective - Vital Signs Vital signs: Vital Signs Temp 97.6 F 07/10/18 08:00 Pulse 105 H 07/10/18 08:00 Resp 18 07/10/18 08:00 BP 161/72 07/10/18 08:00 Pulse Ox 93 L 07/10/18 08:00 Intake & Output 07/09/18 07/10/18 07/10/18 18:59 06:59 18:59 Intake Total 1290 850 0 Output Total 200 Balance 1090 850 0 Weight 75 kg Intake: Intake, IV Titration 1200 850 Amount DAPTOmycin 500 mg In 100 Sodium Chloride 0.9% 50 ml @ 100 mls/hr IVPB Q48H [facility] Rx#:[id number] Dextrose 5% in Water 1, 750 000 ml @ 150 mls/hr IV . Q7H40M [facility] with Sodium Bicarb (1 Meq/ml) 150 ml Rx#:[id number] Sodium Chloride 0.9% 1, 1200 000 ml @ 150 mls/hr IV . Q6H40M [facility] Rx#:[id number] Oral 90 0 Output: Urine 200 Other: Voiding Method Ileal Conduit (Right) Ileal Conduit (Right) Ileal Conduit ( Right) # Voids 0 0 0 # Bowel Movements 0 - Labs CBC & Chem 7: 07/10/18 06:48 07/10/18 06:48 Labs: Abnormal Lab Results - Last 24 Hours (Table) 07/09/18 07/09/18 07/09/18 Range/Units 11:46 14:00 15:55 WBC (3.8-10.6) k/uL RBC (3.80-5.40) m/uL Hgb (11.4-16.0) gm/dL MCHC (31.0-37.0) g/dL RDW (11.5-15.5) % Plt Count (150-450) k/uL Neutrophils # (1.3-7.7) k/uL Lymphocytes # (1.0-4.8) k/uL Sodium (137-145) mmol/L Chloride (98-107) mmol/L BUN (7-17) mg/dL Creatinine (0.52-1.04) mg/dL Glucose (74-99) mg/dL POC Glucose (mg/dL) 395 H (75-99) mg/dL Hemoglobin A1c 8.0 H (4.0-6.0) % Total Bilirubin (0.2-1.3) mg/dL Alkaline Phosphatase (38-126) U/L Total Protein (6.3-8.2) g/dL Albumin (3.5-5.0) g/dL Urine Appearance Cloudy H (Clear) Urine Protein 1+ H (Negative) Urine Ketones Trace H (Negative) Urine Blood Moderate H (Negative) Ur Leukocyte Esterase Large H (Negative) Urine RBC 55 H (0-5) /hpf Urine WBC 126 H (0-5) /hpf Urine WBC Clumps Moderate H (None) /hpf Urine Bacteria Many H (None) /hpf Hyaline Casts 5 H (0-2) /lpf Urine Mucus Rare H (None) /hpf 18 18 07/10/18 Range/Units 16:58 20:50 05:59 WBC (3.8-10.6) k/uL RBC (3.80-5.40) m/uL Hgb (11.4-16.0) gm/dL MCHC (31.0-37.0) g/dL RDW (11.5-15.5) % Plt Count (150-450) k/uL Neutrophils # (1.3-7.7) k/uL Lymphocytes # (1.0-4.8) k/uL Sodium (137-145) mmol/L Chloride (98-107) mmol/L BUN (7-17) mg/dL Creatinine (0.52-1.04) mg/dL Glucose (74-99) mg/dL POC Glucose (mg/dL) 337 H 274 H 163 H (75-99) mg/dL Hemoglobin A1c (4.0-6.0) % Total Bilirubin (0.2-1.3) mg/dL Alkaline Phosphatase (38-126) U/L Total Protein (6.3-8.2) g/dL Albumin (3.5-5.0) g/dL Urine Appearance (Clear) Urine Protein (Negative) Urine Ketones (Negative) Urine Blood (Negative) Ur Leukocyte Esterase (Negative) Urine RBC (0-5) /hpf Urine WBC (0-5) /hpf Urine WBC Clumps (None) /hpf Urine Bacteria (None) /hpf Hyaline Casts (0-2) /lpf Urine Mucus (None) /hpf 07/10/18 07/10/18 Range/Units 06:48 06:48 WBC 16.8 H (3.8-10.6) k/uL RBC 3.64 L (3.80-5.40) m/uL Hgb 10.4 L (11.4-16.0) gm/dL MCHC 29.8 L (31.0-37.0) g/dL RDW 16.5 H (11.5-15.5) % Plt Count 145 L (150-450) k/uL Neutrophils # 15.1 H (1.3-7.7) k/uL Lymphocytes # 0.7 L (1.0-4.8) k/uL Sodium 147 H (137-145) mmol/L Chloride 112 H (98-107) mmol/L BUN 122 H* (7-17) mg/dL Creatinine 5.25 H (0.52-1.04) mg/dL Glucose 211 H (74-99) mg/dL POC Glucose (mg/dL) (75-99) mg/dL Hemoglobin A1c (4.0-6.0) % Total Bilirubin 1.7 H (0.2-1.3) mg/dL Alkaline Phosphatase 214 H (38-126) U/L Total Protein 4.9 L (6.3-8.2) g/dL Albumin 2.3 L (3.5-5.0) g/dL Urine Appearance (Clear) Urine Protein (Negative) Urine Ketones (Negative) Urine Blood (Negative) Ur Leukocyte Esterase (Negative) Urine RBC (0-5) /hpf Urine WBC (0-5) /hpf Urine WBC Clumps (None) /hpf Urine Bacteria (None) /hpf Hyaline Casts (0-2) /lpf Urine Mucus (None) /hpf Microbiology - Last 24 Hours (Table) 07/09/18 15:55 Urine Culture - Preliminary Urine,Voided Assessment and Plan Plan: Assessment: 1. Acute kidney injury secondary to ATN secondary to sepsis/hypotension and intravascular volume depletion from nausea vomiting and poor oral intake. Creatinine 5.99 admission and is 5.25 today. No evidence of hydronephrosis on renal ultrasound. 2. Hyperkalemia secondary to acute kidney injury, metabolic acidosis and potassium supplementation. Resolved. 3. Metabolic acidosis secondary to acute kidney injury and lactic acidosis. Better. 4. Hypernatremia secondary to lack of oral water intake. 5. Diabetes mellitus. 6. Chronic kidney disease stage III secondary to diabetic kidney disease and solitary left kidney. Baseline creatinine in the range of 1.5-1.8. 7. Status post right nephrectomy. 8. Stage III coccyx pressure ulcer. Currently on antibiotics per infectious disease. Plan: Discontinue sodium bicarbonate drip. Start half normal saline to be run at 125 mL an hour. Encouraged oral intake, incl free water. I will change oral bicarb 650 mg twice daily. Continue to monitor renal function and urine output. No urgent need for renal replacement therapy at this time.
[2018-07-10 11:44] LABS: Glucose,Whole Blood 261 mg/dL (75-99)
[2018-07-10] MEDS: MULTIVITAMINS, THERA 1 EACH TAB PO SCH (11:49)
[2018-07-10] MEDS: FERROUS SULFATE 325 MG TAB PO SCH (11:49)
[2018-07-10] MEDS: SODIUM CHLORIDE 0.45% 1,000 ML IV SCH ×2 (12:30→19:50)
[2018-07-10 16:22] LABS: Glucose,Whole Blood 321 mg/dL (75-99)
[2018-07-10 21:10] LABS: Glucose,Whole Blood 176 mg/dL (75-99)
--- NOTE | 2018-07-11 00:21 | P.PN ---
Subjective Progress Note Date: 07/10/18 This is an 87-year-old female who presented to [facility] with generalized weakness and altered mental status. Patient apparently lives alone and has a patent caregiver. Her white count was 26,000, creatinine 5.9 potassium 6.9, CO2 11. Chest x-ray reported as mild effusion, abdominal x-ray showed nonobstructive bowel gas pattern. Urinalysis was reported as black, cloudy, blood 1+, WBCs 2-5, RBCs 2-5, blood negative, leukoesterase 2+, nitrate negative and urine culture obtained. She was treated at [place] including receiving a dose of vancomycin and was then transferred to [facility] emergency center for evaluation. Patient was then admitted to the cardiac stepdown unit. She has received 2 doses of Kayexalate but vomited after the first dose. Her potassium is 6.2, BUN 118 and creatinine 5.96. White count is 21.4, lactic acid initially 2. 1 repeat was 2.4, alkaline phosphatase 239. Albumin 2.6. Patient was disimpacted last evening, had 1 episode of emesis in the ER and is currently on clear liquids. Consult is in place for nephrology. She presents with a known coccyx pressure ulcer and follows with Dr. [facility]. Her last evaluation was on July 05 for a stage III pressure ulcer at the coccyx and underwent debridement. Patient has been a long-term patient at the wound Center and has been seen by Dr. Brittany Cano. She has a remote history of uterine cancer with radiation therapy. Urostomy tube has been changed by nursing since admission. Patient has a known history of wound cultures positive for MRSA, enterococcus, beta hemolytic strep, Klebsiella, Morganella morganii. Patient remains very confused and unable to provide any information. Most of information is obtained from the records and from the patient's nurse. 07/10/2018 patient has little improvement, remains weak and confused Objective - Vital Signs Vital signs: Vital Signs Temp 97.7 F 07/10/18 23:29 Pulse 88 07/10/18 23:31 Resp 16 07/10/18 23:31 BP 140/65 07/10/18 23:29 Pulse Ox 96 07/10/18 23:29 Intake & Output 07/10/18 07/10/18 07/11/18 06:59 18:59 06:59 Intake Total 840 480 5015 Output Total 150 150 Balance 850 -30 850 Weight 75 kg Intake: Intake, IV Titration 850 1000 Amount DAPTOmycin 500 mg In 100 Sodium Chloride 0.9% 50 ml @ 100 mls/hr IVPB Q48H [facility] Rx#:[id number] Dextrose 5% in Water 1, 750 000 ml @ 150 mls/hr IV . Q7H40M [facility] with Sodium Bicarb (1 Meq/ml) 150 ml Rx#:[id number] Sodium Chloride 0.45% 1, 1000 000 ml @ 125 mls/hr IV . Q8H [facility] Rx#:[id number] Oral 120 Output: Urine 150 150 Other: Voiding Method Ileal Conduit (Right) Ileal Conduit (Right) Ileal Conduit ( Right) # Voids 0 0 # Bowel Movements 0 - Exam Gen: This is an 87-year-old female. She is in bed and calling out for Tracy. Patient is unable to follow any directions. HEENT: Head is atraumatic, normocephalic. Pupils equal, round. Sclerae is anicteric. Conjunctiva slightly pale. NECK oral mucous membranes are dry.: Supple. No JVD. No lymphadenopathy. No thyromegaly. LUNGS: Clear to auscultation. No wheezes or rhonchi. No intercostal retractions. HEART: Regular rate and rhythm. No murmur. ABDOMEN: Soft. Bowel sounds are present. No masses. No tenderness. EXTREMETIES: trace edema to the lower extremities. No wounds noted on the extremities. Evaluation of sacral ulcer deferred to Dr. Orozco. NEUROLOGICAL: Patient is awake, confused - Labs CBC & Chem 7: 07/10/18 06:48 07/10/18 06:48 Labs: Abnormal Lab Results - Last 24 Hours (Table) 07/10/18 07/10/18 07/10/18 Range/Units 05:59 06:48 06:48 WBC 16.8 H (3.8-10.6) k/uL RBC 3.64 L (3.80-5.40) m/uL Hgb 10.4 L (11.4-16.0) gm/dL MCHC 29.8 L (31.0-37.0) g/dL RDW 16.5 H (11.5-15.5) % Plt Count 145 L (150-450) k/uL Neutrophils # 15.1 H (1.3-7.7) k/uL Lymphocytes # 0.7 L (1.0-4.8) k/uL Sodium 147 H (137-145) mmol/L Chloride 112 H (98-107) mmol/L BUN 122 H* (7-17) mg/dL Creatinine 5.25 H (0.52-1.04) mg/dL Glucose 211 H (74-99) mg/dL POC Glucose (mg/dL) 163 H (75-99) mg/dL Total Bilirubin 1.7 H (0.2-1.3) mg/dL Alkaline Phosphatase 214 H (38-126) U/L Total Protein 4.9 L (6.3-8.2) g/dL Albumin 2.3 L (3.5-5.0) g/dL 07/10/18 07/10/18 07/10/18 Range/Units 11:16 16:14 21:08 WBC (3.8-10.6) k/uL RBC (3.80-5.40) m/uL Hgb (11.4-16.0) gm/dL MCHC (31.0-37.0) g/dL RDW (11.5-15.5) % Plt Count (150-450) k/uL Neutrophils # (1.3-7.7) k/uL Lymphocytes # (1.0-4.8) k/uL Sodium (137-145) mmol/L Chloride (98-107) mmol/L BUN (7-17) mg/dL Creatinine (0.52-1.04) mg/dL Glucose (74-99) mg/dL POC Glucose (mg/dL) 261 H 321 H 176 H (75-99) mg/dL Total Bilirubin (0.2-1.3) mg/dL Alkaline Phosphatase (38-126) U/L Total Protein (6.3-8.2) g/dL Albumin (3.5-5.0) g/dL Microbiology - Last 24 Hours (Table) 07/09/18 15:55 Urine Culture - Preliminary Urine,Voided Laboratory Results WBC 16.8 k/uL (3.8-10.6) H 07/10/18 06:48 RBC 3.64 m/uL (3.80-5.40) L 07/10/18 06:48 Hgb 10.4 gm/dL (11.4-16.0) L 07/10/18 06:48 Hct 34.8 % (34.0-46.0) 07/10/18 06:48 MCV 95.5 fL (80.0-100.0) 07/10/18 06:48 MCH 28.5 pg (25.0-35.0) 07/10/18 06:48 MCHC 29.8 g/dL (31.0-37.0) L 07/10/18 06:48 RDW 16.5 % (11.5-15.5) H 07/10/18 06:48 Plt Count 145 k/uL (150-450) L 07/10/18 06:48 Neutrophils % 90 % 07/10/18 06:48 Lymphocytes % 4 % 07/10/18 06:48 Monocytes % 2 % 07/10/18 06:48 Eosinophils % 0 % 07/10/18 06:48 Basophils % 0 % 07/10/18 06:48 Neutrophils # 15.1 k/uL (1.3-7.7) H 07/10/18 06:48 Lymphocytes # 0.7 k/uL (1.0-4.8) L 07/10/18 06:48 Monocytes # 0.4 k/uL (0-1.0) 07/10/18 06:48 Eosinophils # 0.0 k/uL (0-0.7) 07/10/18 06:48 Basophils # 0.0 k/uL (0-0.2) 07/10/18 06:48 Hypochromasia Slight 07/10/18 06:48 Anisocytosis Slight 07/10/18 06:48 Macrocytosis Slight 07/09/18 06:21 Sodium 147 mmol/L (137-145) H 07/10/18 06:48 Potassium 4.0 mmol/L (3.5-5.1) 07/10/18 06:48 Chloride 112 mmol/L (98-107) H 07/10/18 06:48 Carbon Dioxide 23 mmol/L (22-30) 07/10/18 06:48 Anion Gap 12 mmol/L 07/10/18 06:48 BUN 122 mg/dL (7-17) H* 07/10/18 06:48 Creatinine 5.25 mg/dL (0.52-1.04) H 07/10/18 06:48 Est GFR (CKD-EPI)AfAm 8 (>60 ml/min/1.73 sqM) 07/10/18 06:48 Est GFR (CKD-EPI)NonAf 7 (>60 ml/min/1.73 sqM) 07/10/18 06:48 Glucose 211 mg/dL (74-99) H 07/10/18 06:48 POC Glucose (mg/dL) 176 mg/dL (75-99) H 07/10/18 21:08 POC Glu Yeast Supervisor ID Timbo Goldberg 07/10/18 21:[address] Glu mg/dL 183 07/09/18 14:00 Hemoglobin A1c 8.0 % (4.0-6.0) H 07/09/18 14:00 Lactic Ac Sepsis Rflx Y 07/08/18 22:34 Plasma Lactic Acid Ramez 2.4 mmol/L (0.7-2.0) H* 07/09/18 02:06 Calcium 8.4 mg/dL (8.4-10.2) 07/10/18 06:48 Total Bilirubin 1.7 mg/dL (0.2-1.3) H 07/10/18 06:48 AST 28 U/L (14-36) 07/10/18 06:48 ALT 36 U/L (9-52) 07/10/18 06:48 Alkaline Phosphatase 214 U/L (38-126) H 07/10/18 06:48 Total Protein 4.9 g/dL (6.3-8.2) L 07/10/18 06:48 Albumin 2.3 g/dL (3.5-5.0) L 07/10/18 06:48 Urine Color Yellow 07/09/18 15:55 Urine Appearance Cloudy (Clear) H 07/09/18 15:55 Urine pH 6.0 (5.0-8.0) 07/09/18 15:55 Ur Specific Hoskins 1.014 (1.001-1.035) 07/09/18 15:55 Urine Protein 1+ (Negative) H 07/09/18 15:55 Urine Glucose (UA) Negative (Negative) 07/09/18 15:55 Urine Ketones Trace (Negative) H 07/09/18 15:55 Urine Blood Moderate (Negative) H 07/09/18 15:55 Urine Nitrite Negative (Negative) 07/09/18 15:55 Urine Bilirubin Negative (Negative) 07/09/18 15:55 Urine Urobilinogen <2.0 mg/dL (<2.0) 07/09/18 15:55 Ur Leukocyte Esterase Large (Negative) H 07/09/18 15:55 Urine RBC 55 /hpf (0-5) H 07/09/18 15:55 Urine WBC 126 /hpf (0-5) H 07/09/18 15:55 Urine WBC Clumps Moderate /hpf (None) H 07/09/18 15:55 Ur Squamous Epith Cells 1 /hpf (0-4) 07/09/18 15:55 Urine Bacteria Many /hpf (None) H 07/09/18 15:55 Hyaline Casts 5 /lpf (0-2) H 07/09/18 15:55 Urine Mucus Rare /hpf (None) H 07/09/18 15:55 Microbiology 07/09/18 15:55 Urine,Voided Urine Culture - Preliminary Assessment and Plan (1) Acute renal failure (ARF) Current Visit: Yes Status: Acute Code(s): N17.9 - ACUTE KIDNEY FAILURE, UNSPECIFIED SNOMED Code(s): 24517030 (2) Decubitus ulcer Current Visit: Yes Status: Acute Code(s): L89.90 - PRESSURE ULCER OF UNSPECIFIED SITE, UNSPECIFIED STAGE SNOMED Code(s): 732429953 (3) Gram negative sepsis Narrative/Plan: This 87-year-old woman presents acutely ill with what appears to be sepsis from urinary tract, has chronic coccyx ulceration that has been followed wound center as well as with plastic surgery. There is leukocytosis on the base of the underlying sepsis, and with her history of multiple prior infections antimicrobial therapy with Daptomycin and Azactam will be utilize while cultures are in process. She is receiving resuscitation and supportive care wound care is with the foam based dressing. \ 07/10/2018 patient seems to have some slight improvement with initiation of antibiotic therapy with daptomycin and Azactam. Still profoundly ill. Overall plan of care being contemplated and best possible treatment plan. Wound care with the foam dressing to the coccyx ulceration which she does find soothing. The patient is less agitated than yesterday but still very confused. Current Visit: No Status: Acute Code(s): A41.50 - GRAM-NEGATIVE SEPSIS, UNSPECIFIED SNOMED Code(s): 203805310
[2018-07-11] MEDS: SODIUM CHLORIDE 0.45% 1,000 ML IV SCH ×3 (03:12→20:02)
[2018-07-11 06:01] LABS: Glucose,Whole Blood 102 mg/dL (75-99)
[2018-07-11] MEDS: INSULIN ASPART 100 UNIT/ML 1 ML 10 ML VIAL SQ SCH ×4 (06:18→21:26)
--- NOTE | 2018-07-11 06:18 | PN ---
PROGRESS NOTE DATE OF SERVICE: 07/10/2018 PRESENTING COMPLAINT: Weak and tired. INTERVAL HISTORY: Patient has multiple medical problems, admitted with acute kidney injury, poor oral intake. Has a stage IV sacral decubitus ulcer with multiple medical problems. The patient is a bit more awake. Also, there was a question of possible aspiration pneumonia and UTI. The patient is following more commands today. Does feel a bit tired and tired and run down. REVIEW OF SYSTEMS: Done for constitutional, cardiovascular, GI, pulmonary and relevant findings as above. CURRENT MEDICATIONS: Reviewed that include IV aztreonam, IV fluids. PHYSICAL EXAMINATION: VITAL SIGNS: Temperature 97.5, pulse 95, respiration 20, blood pressure 148/68, pulse ox 95 percent on room air. GENERAL APPEARANCE: Lying in bed, a bit more awake today. EYES: Pupils equal. Conjunctivae pale. NECK: JVD unable to assess. Mass not palpable. RESPIRATORY: Effort normal. LUNGS: Decreased breath sounds. CARDIOVASCULAR: 1st and 2nd sounds. No edema. ABDOMEN: Soft. Left abdominal hernia, urostomy on the right side. PSYCHIATRY: Patient answering some questions today, less lethargic than yesterday. DERMATOLOGICAL: Stage IV sacral decubitus ulcer. INVESTIGATIONS: White count 16.8, hemoglobin 10.4, potassium 4, BUN 122, creatinine 5.25. ASSESSMENT: 1. Acute kidney injury, nonoliguric, probably from acute tubular necrosis and also hypotension from diuretics. 2. History of renal cell carcinoma with nephrectomy. 3. History of bladder uterine treatment and bladder removal, and now resulting in urostomy. 4. Severe sigmoid diverticulosis for recent colonoscopy, asymptomatic. 5. Chronic congestive heart failure from diastolic dysfunction, stable. 6. Chronic kidney disease, stage III, baseline from diabetic nephropathy and nephrosclerosis. 7. Essential hypertension. 8. Hyperlipidemia. 9. Hypothyroidism. 10.Abdominal ventral wall hernia, nonobstructive, asymptomatic. 11.Stage IV sacral decubitus ulcer, present on admission. 12.Diabetes mellitus type 2, chronically on insulin uncontrolled with hypoglycemia. 13.Gastroesophageal reflux disease. 14.Chronic medical debility. 15.Acute metabolic encephalopathy from multiple electrolyte abnormalities, slow to respond. 16.Possible urinary tract infection. 17.Possible pneumonia could be aspiration. 18.CODE STATUS: DO NOT RESUSCITATE. PLAN: The patient's renal functions really fail to large. The patient does look rather still sick. Continue current medication and treatment plan. Continue with IV fluids, antibiotics. Prognosis remains guarded. Follow. MMODL / IJN: [id number] /
[2018-07-11] MEDS: LEVOTHYROXINE 25 MCG TAB PO SCH (06:19)
[2018-07-11] MEDS: ALBUTEROL NEBULIZED 2.5 MG/3 ML INHALATION SCH ×3 (08:10→20:29)
[2018-07-11 08:26] LABS: Anisocytosis Slight; Basophils % (A) 0 %; Eosinophils # (A) 0.1 k/uL (0-0.7); Eosinophils % (A) 1 %; HCT 32.2 % (34.0-46.0); Hypochromasia Moderate; Lymphocytes # (A) 0.8 k/uL (1.0-4.8); Lymphocytes % (A) 6 %; MCH 29.2 pg (25.0-35.0); MCV 94.3 fL (80.0-100.0); Mean Platelet Volume 8.2; Monocytes # (A) 0.4 k/uL (0-1.0); Monocytes % (A) 3 %; Neutrophils % (A) 87 %; Platelet Count 110 k/uL (150-450); RBC 3.41 m/uL (3.80-5.40); RDW 16.4 % (11.5-15.5); WBC 13.7 k/uL (3.8-10.6)
[2018-07-11 08:35] LABS: Albumin 2.2 g/dL (3.5-5.0); Magnesium 2.1 mg/dL (1.6-2.3); Potassium 3.3 mmol/L (3.5-5.1); Total Protein 4.8 g/dL (6.3-8.2)
[2018-07-11] MEDS: INSULN ASP PRT/INSULIN ASPART 100 UNIT/ML 10 ML VIAL SQ SCH ×2 (09:13→17:46)
[2018-07-11] MEDS: ISOSORBIDE MONONITRATE ER 30 MG TAB.ER.24H PO SCH (09:18)
[2018-07-11] MEDS: SODIUM BICARBONATE TAB 650 MG TAB PO SCH ×2 (09:18→21:26)
[2018-07-11] MEDS: ALLOPURINOL 100 MG TAB PO SCH ×2 (09:18→21:26)
[2018-07-11] MEDS: PANTOPRAZOLE 40 MG/10 ML VIAL IV SCH (09:18)
[2018-07-11] MEDS: ASPIRIN 81 MG PO SCH (09:18)
[2018-07-11] MEDS: AZTREONAM 1 GM in SODIUM CHLORIDE 0.9% 50 ML IVPB SCH (09:18)
[2018-07-11] MEDS: CHOLECALCIFEROL 1,000 UNIT TAB PO SCH (09:18)
[2018-07-11] MEDS: FERROUS SULFATE 325 MG TAB PO SCH (09:19)
[2018-07-11] MEDS ORDERED: POTASSIUM CHLORIDE ER 20 MEQ TAB.ER PO STA (10:38)
--- NOTE | 2018-07-11 11:02 | P.PN ---
Subjective Patient is seen in follow-up for acute kidney injury on chronic kidney disease. 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 Creatinine was 5.99 on admission and is down to 4.47 today. Patient is more alert today. She is currently sitting up in chair. She has a urostomy which was changed this admission. Oral intake is poor. Vital signs are stable. General: The patient appeared well nourished and normally developed. HEENT: Head exam is unremarkable. Neck is without jugular venous distension. LUNGS: Breath sounds decreased. HEART: Rate and Rhythm are regular. First and second heart sounds normal. No murmurs, rubs or gallops. ABDOMEN: Abdominal exam reveals normal bowel sounds. Non-tender and non- distended. EXTREMITITES: No clubbing, cyanosis, or edema. Objective - Vital Signs Vital signs: Vital Signs Temp 98.3 F 07/11/18 08:00 Pulse 88 07/11/18 08:26 Resp 16 07/11/18 03:21 BP 142/64 07/11/18 08:00 Pulse Ox 94 L 07/11/18 08:00 Intake & Output 07/10/18 07/11/18 07/11/18 18:59 06:59 18:59 Intake Total 120 1000 Output Total 150 400 Balance -30 600 Weight 76.2 kg Intake: Intake, IV Titration 1000 Amount Sodium Chloride 0.45% 1, 1000 000 ml @ 125 mls/hr IV . Q8H [facility] Rx#:[id number] Oral 120 Output: Urine 150 400 Other: Voiding Method Ileal Conduit (Right) Ileal Conduit (Right) Ileal Conduit ( Right) # Voids 0 # Bowel Movements 0 - Labs CBC & Chem 7: 07/11/18 07:08 07/11/18 07:08 Labs: Abnormal Lab Results - Last 24 Hours (Table) 07/10/18 07/10/18 07/10/18 Range/Units 11:16 16:14 21:08 WBC (3.8-10.6) k/uL RBC (3.80-5.40) m/uL Hgb (11.4-16.0) gm/dL Hct (34.0-46.0) % RDW (11.5-15.5) % Plt Count (150-450) k/uL Neutrophils # (1.3-7.7) k/uL Lymphocytes # (1.0-4.8) k/uL Potassium (3.5-5.1) mmol/L Chloride (98-107) mmol/L BUN (7-17) mg/dL Creatinine (0.52-1.04) mg/dL POC Glucose (mg/dL) 261 H 321 H 176 H (75-99) mg/dL Calcium (8.4-10.2) mg/dL Alkaline Phosphatase (38-126) U/L Total Protein (6.3-8.2) g/dL Albumin (3.5-5.0) g/dL 07/11/18 07/11/18 07/11/18 Range/Units 05:57 07:08 07:08 WBC 13.7 H (3.8-10.6) k/uL RBC 3.41 L (3.80-5.40) m/uL Hgb 10.0 L (11.4-16.0) gm/dL Hct 32.2 L (34.0-46.0) % RDW 16.4 H (11.5-15.5) % Plt Count 110 L (150-450) k/uL Neutrophils # 12.0 H (1.3-7.7) k/uL Lymphocytes # 0.8 L (1.0-4.8) k/uL Potassium 3.3 L (3.5-5.1) mmol/L Chloride 108 H (98-107) mmol/L BUN 120 H* (7-17) mg/dL Creatinine 4.47 H (0.52-1.04) mg/dL POC Glucose (mg/dL) 102 H (75-99) mg/dL Calcium 8.0 L (8.4-10.2) mg/dL Alkaline Phosphatase 169 H (38-126) U/L Total Protein 4.8 L (6.3-8.2) g/dL Albumin 2.2 L (3.5-5.0) g/dL Assessment and Plan Plan: Assessment: 1. Acute kidney injury secondary to ATN secondary to sepsis/hypotension and intravascular volume depletion from nausea vomiting and poor oral intake. Creatinine 5.99 admission and is improved to 4.47 today. No evidence of hydronephrosis on renal ultrasound. 2. Hyperkalemia secondary to acute kidney injury, metabolic acidosis and potassium supplementation. Resolved. Now hypokalemic. 3. Metabolic acidosis secondary to acute kidney injury and lactic acidosis. Better. 4. Hypernatremia secondary to lack of oral water intake. Better. 5. Diabetes mellitus. 6. Chronic kidney disease stage III secondary to diabetic kidney disease and solitary left kidney. Baseline creatinine in the range of 1.5-1.8. 7. Status post right nephrectomy. 8. Stage III coccyx pressure ulcer. Currently on antibiotics per infectious disease. Plan: Maintain half normal saline to be run at 125 mL an hour. Encouraged oral intake, incl free water. Maintain oral bicarb 650 mg twice daily. Replace potassium. 40 mEq today. Continue to monitor renal function and urine output. No urgent need for renal replacement therapy at this time.
[2018-07-11 11:45] LABS: Glucose,Whole Blood 121 mg/dL (75-99)
--- NOTE | 2018-07-11 11:47 | CDI ---
Documentation Clarification Form Date: 07/11/2018 11:36:44 AM From: Anjali Jung RN, CCDS Admit Date: 07/08/2018 8:07:00 PM Patient Name: Kalee Staton Visit Number: [id number] ATTENTION: The Clinical Documentation Specialists (CDI) and [facility] Coding Staff appreciate your assistance in clarifying documentation. Please respond to the clarification below the line at the bottom and electronically sign. The CDI & [facility] Coding staff will review the response and follow-up if needed. Please note: Queries are made part of the Legal Health Record. If you have any questions, please contact the author of this message via ITS. Dr. Remi Zelaya declining Hgb and Hct lacks specificity to accurately reflect your patients severity of condition and clarification is needed. History/Risk Factors: ISATU w/ ATN on CKD stage 3, DM2, pressure ulcer stage 3 Clinical indicators: Hemoglobin: 11/10.4/10 Hematocrit: 35.3/34.8/32.2 Treatment: Feosol 325 mg PO QD Labs Am daily In order to capture the severity of condition, please clarify the significance of the lab value and treatment and etiology if known: Chronic blood loss anemia Iron deficiency anemia Drug induced anemia Anemia due to malignancy Nutritional anemia Anemia of chronic kidney disease Anemia of chronic disease (please specify) Unable to determine Other, please specify (Last Revision: April 2017) anemia of CKD MTDD
[2018-07-11] MEDS: MULTIVITAMINS, THERA 1 EACH TAB PO SCH (13:32)
[2018-07-11 16:25] LABS: Glucose,Whole Blood 168 mg/dL (75-99)
[2018-07-11] MEDS: traMADol 50 MG TAB PO PRN (17:46)
[2018-07-11] MEDS: DAPTOmycin 500 MG in SODIUM CHLORIDE 0.9% 50 ML IVPB SCH (19:57)
[2018-07-11 20:55] LABS: Glucose,Whole Blood 234 mg/dL (75-99)
--- NOTE | 2018-07-11 23:06 | PN ---
PROGRESS NOTE DATE OF SERVICE: 07/11/2018. PRESENTING COMPLAINT: Weak and tired. INTERVAL HISTORY: Patient has multiple issues, presented with acute kidney injury, poor oral intake, stage IV infected sacral decubitus ulcer. Again far more awake today, but really weak and tired, sitting up on a chair. Also being treated for possible aspiration pneumonia, UTI. Getting IV fluids, very poor oral intake. REVIEW OF SYSTEMS: Done for constitutional, cardiovascular, GI, pulmonary; relevant findings as above. MEDICATIONS: Current medications are reviewed, include IV aztreonam and half-normal saline. PHYSICAL EXAMINATION: VITAL SIGNS: Temperature 98.3 pulse 72, respirations 16, blood pressure 142/64, pulse 94 percent room air. GENERAL APPEARANCE: Sitting up in a chair, a bit more awake today though tired. EYES: Pupils equal. Conjunctivae pale. NECK: JVD unable to assess. Mass not palpable. Respiratory effort normal. LUNGS: Decreased breath sounds. CARDIOVASCULAR: 1st and 2nd sounds normal. Some edema. ABDOMEN: Soft. Left abdominal wall hernia. Urostomy bag. PSYCHIATRY: Answering simple questions. DERMATOLOGIC: Stage IV sacral decubitus ulcer. INVESTIGATIONS: White count 13.7, hemoglobin 10.0, potassium 3.3, BUN 120, creatinine 4.47, albumin 2.2. ASSESSMENT: 1. Acute kidney injury, nonoliguric, probably from acute tubular necrosis and also hypotension from diuretics, slow to respond. 2. History of renal cell carcinoma with nephrectomy. 3. 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 4. Severe sigmoid diverticulosis asymptomatic. 5. Chronic congestive heart failure from diastolic dysfunction, stable. 6. Chronic kidney disease, stage III, baseline from diabetic nephropathy and nephrosclerosis. 7. Essential hypertension. 8. Hyperlipidemia. 9. Hypothyroidism. 10.Abdominal ventral wall hernia, nonobstructive, asymptomatic. 11.Stage IV sacral decubitus ulcer present. 12.Diabetes mellitus type 2, chronically on insulin, uncontrolled with hypoglycemia with poor oral intake. 13.Gastroesophageal reflux disease. 14.Chronic medical debility. 15.Acute metabolic encephalopathy from multiple electrolyte abnormalities with some response. 16.Possible urinary tract infection. 17.Possible pneumonia could be aspiration. 18.Anemia of chronic kidney disease. 19.Hyperalbuminemia, probably due to acute phase reaction. 20.CODE STATUS: DNR. Prognosis remains guarded. Continue with IV fluids, antibiotics. MMODL / IJN: [id number] /
[2018-07-12] MEDS: traMADol 50 MG TAB PO PRN ×3 (04:51→21:16)
[2018-07-12] MEDS: SODIUM CHLORIDE 0.45% 1,000 ML IV SCH ×2 (04:51→12:24)
[2018-07-12 05:44] LABS: Glucose,Whole Blood 146 mg/dL (75-99)
[2018-07-12] MEDS: LEVOTHYROXINE 25 MCG TAB PO SCH (06:33)
[2018-07-12] MEDS: INSULN ASP PRT/INSULIN ASPART 100 UNIT/ML 10 ML VIAL SQ SCH ×2 (06:34→17:31)
[2018-07-12] MEDS: INSULIN ASPART 100 UNIT/ML 1 ML 10 ML VIAL SQ SCH ×4 (06:34→21:11)
[2018-07-12 07:34] LABS: Potassium 3.8 mmol/L (3.5-5.1)
[2018-07-12 07:41] LABS: Anisocytosis Slight; Basophils % (A) 0 %; Eosinophils # (A) 0.1 k/uL (0-0.7); Eosinophils % (A) 1 %; HGB 9.5 gm/dL (11.4-16.0); Hypochromasia Slight; Lymphocytes # (A) 0.6 k/uL (1.0-4.8); Lymphocytes % (A) 4 %; MCH 28.6 pg (25.0-35.0); MCHC 30.6 g/dL (31.0-37.0); MCV 93.4 fL (80.0-100.0); Mean Platelet Volume 8.3; Monocytes # (A) 0.6 k/uL (0-1.0); Monocytes % (A) 4 %; Neutrophils # (A) 13.8 k/uL (1.3-7.7); Neutrophils % (A) 89 %; Platelet Count 103 k/uL (150-450); RBC 3.31 m/uL (3.80-5.40); RDW 16.5 % (11.5-15.5); WBC 15.5 k/uL (3.8-10.6)
[2018-07-12] MEDS: CHOLECALCIFEROL 1,000 UNIT TAB PO SCH (08:42)
[2018-07-12] MEDS: ISOSORBIDE MONONITRATE ER 30 MG TAB.ER.24H PO SCH (08:42)
[2018-07-12] MEDS: SODIUM BICARBONATE TAB 650 MG TAB PO SCH ×2 (08:42→21:11)
[2018-07-12] MEDS: FERROUS SULFATE 325 MG TAB PO SCH (08:42)
[2018-07-12] MEDS: CALCITRIOL 0.25 MCG CAP PO SCH (08:42)
[2018-07-12] MEDS: ASPIRIN 81 MG PO SCH (08:42)
[2018-07-12] MEDS: PANTOPRAZOLE 40 MG/10 ML VIAL IV SCH (08:43)
[2018-07-12] MEDS: ALLOPURINOL 100 MG TAB PO SCH ×2 (08:43→21:11)
[2018-07-12] MEDS: AZTREONAM 1 GM in SODIUM CHLORIDE 0.9% 50 ML IVPB SCH (08:43)
[2018-07-12] MEDS: ALBUTEROL NEBULIZED 2.5 MG/3 ML INHALATION SCH ×3 (09:05→20:16)
[2018-07-12 11:17] LABS: Glucose,Whole Blood 177 mg/dL (75-99)
[2018-07-12] MEDS: MULTIVITAMINS, THERA 1 EACH TAB PO SCH (12:22)
--- NOTE | 2018-07-12 12:55 | PN ---
PROGRESS NOTE Patient was seen this morning for followup for acute kidney injury, which is mainly prerenal. Patient is maintained on IV fluids. Her renal function has improved with creatinine down to 3.9 from 4.4 yesterday. PHYSICAL EXAMINATION: This morning, patient denied any complaints. Blood pressure was 130/60, heart rate 85 per minute. She is afebrile. Examination of the heart, S1, S2. Examination of the lungs, bilateral breath sounds are heard. Abdomen is soft, nontender. Exam of the lower extremities shows no significant edema. SALES TECHNICIAN exam is grossly intact. LABS: Show sodium 141, potassium 3.8, BUN 116, serum creatinine 3.98, calcium 8.0, hemoglobin 9.5 g/dL. ASSESSMENT: 1. Acute kidney injury associated with hypovolemia, currently improving. Patient is nonoliguric. 2. Chronic kidney disease stage III secondary to diabetic kidney disease and solitary left kidney. Baseline creatinine about 1.5-1.8 mg/dL. 3. Hyperkalemia associated with acute kidney injury, metabolic acidosis, now resolved and potassium is actually low. 4. Stage III coccyx pressure ulcer. 5. Status post right nephrectomy. PLAN: Continue with IV fluids. Continue to avoid nephrotoxic agents. Maintain half-normal saline. Serum sodium is 141. MMODL / IJN: [id number] /
[2018-07-12 16:14] LABS: Glucose,Whole Blood 282 mg/dL (75-99)
[2018-07-12 20:21] LABS: Glucose,Whole Blood 349 mg/dL (75-99)
--- NOTE | 2018-07-13 00:01 | PN ---
PROGRESS NOTE DATE OF SERVICE: July 12, 2018. PRESENTING COMPLAINT: Tired. INTERVAL HISTORY: The patient has multiple problems. Presented with acute kidney injury, poor oral intake, infected stage IV sacral decubitus ulcer, UTI, pneumonia. Far more awake today. Did eat all of her meals with assistance. IV fluids have been cut back. Getting antibiotics. Sitting up in a chair, talking a bit better today. Family is looking into patient going to an ECF. REVIEW OF SYSTEMS: Done for constitutional, cardiovascular, GI, pulmonary and relevant findings as above. CURRENT MEDICATIONS: Reviewed that include IV aztreonam, IV daptomycin, insulin, sodium bicarb, saline at 70 mL an hour. PHYSICAL EXAMINATION: VITAL SIGNS: Temperature 97, pulse 81, respiratory 18, blood pressure 130/62, pulse ox 97% on 2 L. GENERAL APPEARANCE: Sitting up in a chair, more awake, talking better today. EYES: Pupils equal. Conjunctivae pale. NECK: JVD unable to assess. Mass not palpable. RESPIRATORY: Effort increased. LUNGS: Decreased breath sounds. CARDIOVASCULAR: 1st and 2nd sounds normal. Some edema present also in the arms. ABDOMEN: Soft. Left abdominal wall hernia. Urostomy bag in place. PSYCHIATRY: More awake, answering simple questions. DERMATOLOGICAL: Stage IV sacral decubitus ulcer. INVESTIGATIONS: White count 15.5, hemoglobin 9.5, potassium 3.8, BUN 116, creatinine 3.98, albumin 2.2. Urine culture unremarkable. ASSESSMENT: 1. Acute kidney injury nonoliguric, probably from acute tubular necrosis and also hypertension from diuretics, slow to respond. 2. History of renal cell carcinoma with right nephrectomy. 3. History of bladder uterine cancer treated with radiation with bladder removal now. The patient has an ileostomy. 4. Severe sigmoid diverticulosis asymptomatic. 5. Chronic congestive heart failure from diastolic dysfunction, stable. 6. Chronic kidney disease stage 3, baseline from diabetic nephropathy and nephrosclerosis. 7. Essential hypertension. 8. Hyperlipidemia. 9. Hypothyroidism. 10.Ventral abdominal wall hernia, nonobstructive, asymptomatic. 11.Stage IV sacral decubitus ulcer. 12.Diabetes mellitus type 2, chronically on insulin uncontrolled with hypoglycemia from poor oral intake. 13.Gastroesophageal reflux disease. 14.Chronic medical debility. 15.Acute metabolic encephalopathy from multiple electrolyte abnormalities with slow improvement. 16.Acute urinary tract infection with cystitis. 17.Possible pneumonia from aspiration, being treated. 18.Anemia of chronic kidney disease. 19.Mild protein-calorie malnutrition from decreased oral intake causing hypoalbuminemia. 20.Some third-spacing from hypoalbuminemia. 21.CODE STATUS: DNR. PLAN: Overall prognosis remains guarded. Continue with IV fluids, antibiotics. The patient will be going to the ECF. Prognosis not good. Looking at going to the ECF shortly. I was informed by the nurse that the family is also looking into hospice down the road, which may be rather appropriate in this unfortunate, but pleasant lady. MMEVAL / VITORN: [id number] /
--- NOTE | 2018-07-13 00:06 | P.PN ---
Subjective Progress Note Date: 07/12/18 This is an 87-year-old female who presented to [facility] with generalized weakness and altered mental status. Patient apparently lives alone and has a patent caregiver. Her white count was 26,000, creatinine 5.9 potassium 6.9, CO2 11. Chest x-ray reported as mild effusion, abdominal x-ray showed nonobstructive bowel gas pattern. Urinalysis was reported as black, cloudy, blood 1+, WBCs 2-5, RBCs 2-5, blood negative, leukoesterase 2+, nitrate negative and urine culture obtained. She was treated at [facility] including receiving a dose of vancomycin and was then transferred to [facility] emergency center for evaluation. Patient was then admitted to the cardiac stepdown unit. She has received 2 doses of Kayexalate but vomited after the first dose. Her potassium is 6.2, BUN 118 and creatinine 5.96. White count is 21.4, lactic acid initially 2. 1 repeat was 2.4, alkaline phosphatase 239. Albumin 2.6. Patient was disimpacted last evening, had 1 episode of emesis in the ER and is currently on clear liquids. Consult is in place for nephrology. She presents with a known coccyx pressure ulcer and follows with [facility]. [facility]. Her last evaluation was on July 05 for a stage III pressure ulcer at the coccyx and underwent debridement. Patient has been a long-term patient at the wound Center and has been seen by Dr. Brittany Cano. She has a remote history of uterine cancer with radiation therapy. Urostomy tube has been changed by nursing since admission. Patient has a known history of wound cultures positive for MRSA, enterococcus, beta hemolytic strep, Klebsiella, Morganella morganii. Patient remains very confused and unable to provide any information. Most of information is obtained from the records and from the patient's nurse. 07/10/2018 patient has little improvement, remains weak and confused 07/12/2018 patient feels slightly better today. She is less weak. Does have some edema to her hands which the nurses can wrap with Reji wrap to help her edema elevate her limbs. Objective - Vital Signs Vital signs: Vital Signs Temp 97.9 F 07/12/18 21:18 Pulse 85 07/12/18 23:28 Resp 14 07/12/18 23:28 BP 131/62 07/12/18 23:28 Pulse Ox 96 07/12/18 23:28 Intake & Output 07/12/18 07/12/18 07/13/18 06:59 18:59 06:59 Intake Total 582 560 Output Total 600 800 250 Balance -600 -218 310 Weight 83.5 kg Intake: Intake, IV Titration 560 Amount Sodium Chloride 0.45% 1, 560 000 ml @ 70 mls/hr IV . [id number] [facility] Rx#:[id number] Oral 582 Output: Urine 600 800 250 Other: Voiding Method Ileal Conduit (Right) Ileal Conduit (Right) Ileal Conduit ( Right) # Bowel Movements 0 - Exam Gen: This is an 87-year-old female. She is in bed and calling out for Tracy. Patient is unable to follow any directions. HEENT: Head is atraumatic, normocephalic. Pupils equal, round. Sclerae is anicteric. Conjunctiva slightly pale. NECK oral mucous membranes are dry.: Supple. No JVD. No lymphadenopathy. No thyromegaly. LUNGS: Clear to auscultation. No wheezes or rhonchi. No intercostal retractions. HEART: Regular rate and rhythm. No murmur. ABDOMEN: Soft. Bowel sounds are present. No masses. No tenderness. EXTREMETIES: Extensive edema to the upper and lower extremities, uncomfortable especially of her hands .No wounds noted on the extremities. Sacral pressure ulceration is stable treated with the silver foam dressing NEUROLOGICAL: Patient is awake, confused - Labs CBC & Chem 7: 07/12/18 06:17 07/12/18 06:17 Labs: Abnormal Lab Results - Last 24 Hours (Table) 07/12/18 07/12/18 07/12/18 Range/Units 05:42 06:17 06:17 WBC 15.5 H (3.8-10.6) k/uL RBC 3.31 L (3.80-5.40) m/uL Hgb 9.5 L (11.4-16.0) gm/dL Hct 31.0 L (34.0-46.0) % MCHC 30.6 L (31.0-37.0) g/dL RDW 16.5 H (11.5-15.5) % Plt Count 103 L (150-450) k/uL Neutrophils # 13.8 H (1.3-7.7) k/uL Lymphocytes # 0.6 L (1.0-4.8) k/uL Chloride 108 H (98-107) mmol/L BUN 116 H* (7-17) mg/dL Creatinine 3.98 H (0.52-1.04) mg/dL Glucose 116 H (74-99) mg/dL POC Glucose (mg/dL) 146 H (75-99) mg/dL Calcium 8.0 L (8.4-10.2) mg/dL 07/12/18 07/12/18 07/12/18 Range/Units 11:14 16:11 20:19 WBC (3.8-10.6) k/uL RBC (3.80-5.40) m/uL Hgb (11.4-16.0) gm/dL Hct (34.0-46.0) % MCHC (31.0-37.0) g/dL RDW (11.5-15.5) % Plt Count (150-450) k/uL Neutrophils # (1.3-7.7) k/uL Lymphocytes # (1.0-4.8) k/uL Chloride (98-107) mmol/L BUN (7-17) mg/dL Creatinine (0.52-1.04) mg/dL Glucose (74-99) mg/dL POC Glucose (mg/dL) 177 H 282 H 349 H (75-99) mg/dL Calcium (8.4-10.2) mg/dL Microbiology - Last 24 Hours (Table) 07/09/18 15:55 Urine Culture - Final Urine,Voided Laboratory Results WBC 15.5 k/uL (3.8-10.6) H 07/12/18 06:17 RBC 3.31 m/uL (3.80-5.40) L 07/12/18 06:17 Hgb 9.5 gm/dL (11.4-16.0) L 07/12/18 06:17 Hct 31.0 % (34.0-46.0) L 07/12/18 06:17 MCV 93.4 fL (80.0-100.0) 07/12/18 06:17 MCH 28.6 pg (25.0-35.0) 07/12/18 06:17 MCHC 30.6 g/dL (31.0-37.0) L 07/12/18 06:17 RDW 16.5 % (11.5-15.5) H 07/12/18 06:17 Plt Count 103 k/uL (150-450) L 07/12/18 06:17 Neutrophils % 89 % 07/12/18 06:17 Lymphocytes % 4 % 07/12/18 06:17 Monocytes % 4 % 07/12/18 06:17 Eosinophils % 1 % 07/12/18 06:17 Basophils % 0 % 07/12/18 06:17 Neutrophils # 13.8 k/uL (1.3-7.7) H 07/12/18 06:17 Lymphocytes # 0.6 k/uL (1.0-4.8) L 07/12/18 06:17 Monocytes # 0.6 k/uL (0-1.0) 07/12/18 06:17 Eosinophils # 0.1 k/uL (0-0.7) 07/12/18 06:17 Basophils # 0.0 k/uL (0-0.2) 07/12/18 06:17 Hypochromasia Slight 07/12/18 06:17 Anisocytosis Slight 07/12/18 06:17 Macrocytosis Slight 07/09/18 06:21 Sodium 141 mmol/L (137-145) 07/12/18 06:17 Potassium 3.8 mmol/L (3.5-5.1) 07/12/18 06:17 Chloride 108 mmol/L (98-107) H 07/12/18 06:17 Carbon Dioxide 23 mmol/L (22-30) 07/12/18 06:17 Anion Gap 10 mmol/L 07/12/18 06:17 BUN 116 mg/dL (7-17) H* 07/12/18 06:17 Creatinine 3.98 mg/dL (0.52-1.04) H 07/12/18 06:17 Est GFR (CKD-EPI)AfAm 11 (>60 ml/min/1.73 sqM) 07/12/18 06:17 Est GFR (CKD-EPI)NonAf 10 (>60 ml/min/1.73 sqM) 07/12/18 06:17 Glucose 116 mg/dL (74-99) H 07/12/18 06:17 POC Glucose (mg/dL) 349 mg/dL (75-99) H 07/12/18 20:19 POC Glu Clerical Warehouse Worker ID Ernestina Huitron 07/12/18 20:[address] Glu mg/dL 183 07/09/18 14:00 Hemoglobin A1c 8.0 % (4.0-6.0) H 07/09/18 14:00 Lactic Ac Sepsis Rflx Y 07/08/18 22:34 Plasma Lactic Acid Ramez 2.4 mmol/L (0.7-2.0) H* 07/09/18 02:06 Calcium 8.0 mg/dL (8.4-10.2) L 07/12/18 06:17 Magnesium 2.1 mg/dL (1.6-2.3) 07/11/18 07:08 Total Bilirubin 1.0 mg/dL (0.2-1.3) 07/11/18 07:08 AST 23 U/L (14-36) 07/11/18 07:08 ALT 33 U/L (9-52) 07/11/18 07:08 Alkaline Phosphatase 169 U/L (38-126) H 07/11/18 07:08 Total Protein 4.8 g/dL (6.3-8.2) L 07/11/18 07:08 Albumin 2.2 g/dL (3.5-5.0) L 07/11/18 07:08 Urine Color Yellow 07/09/18 15:55 Urine Appearance Cloudy (Clear) H 07/09/18 15:55 Urine pH 6.0 (5.0-8.0) 07/09/18 15:55 Ur Specific [place] 1.014 (1.001-1.035) 07/09/18 15:55 Urine Protein 1+ (Negative) H 07/09/18 15:55 Urine Glucose (UA) Negative (Negative) 07/09/18 15:55 Urine Ketones Trace (Negative) H 07/09/18 15:55 Urine Blood Moderate (Negative) H 07/09/18 15:55 Urine Nitrite Negative (Negative) 07/09/18 15:55 Urine Bilirubin Negative (Negative) 07/09/18 15:55 Urine Urobilinogen <2.0 mg/dL (<2.0) 07/09/18 15:55 Ur Leukocyte Esterase Large (Negative) H 07/09/18 15:55 Urine RBC 55 /hpf (0-5) H 07/09/18 15:55 Urine WBC 126 /hpf (0-5) H 07/09/18 15:55 Urine WBC Clumps Moderate /hpf (None) H 07/09/18 15:55 Ur Squamous Epith Cells 1 /hpf (0-4) 07/09/18 15:55 Urine Bacteria Many /hpf (None) H 07/09/18 15:55 Hyaline Casts 5 /lpf (0-2) H 07/09/18 15:55 Urine Mucus Rare /hpf (None) H 07/09/18 15:55 Microbiology 07/09/18 15:55 Urine,Voided Urine Culture - Final Assessment and Plan (1) Acute renal failure (ARF) Current Visit: Yes Status: Acute Code(s): N17.9 - ACUTE KIDNEY FAILURE, UNSPECIFIED SNOMED Code(s): 79080654 (2) Decubitus ulcer Current Visit: Yes Status: Acute Code(s): L89.90 - PRESSURE ULCER OF UNSPECIFIED SITE, UNSPECIFIED STAGE SNOMED Code(s): 109449572 (3) Gram negative sepsis Narrative/Plan: This 87-year-old woman presents acutely ill with what appears to be sepsis from urinary tract, has chronic coccyx ulceration that has been followed wound center as well as with plastic surgery. There is leukocytosis on the base of the underlying sepsis, and with her history of multiple prior infections antimicrobial therapy with Daptomycin and Azactam will be utilize while cultures are in process. She is receiving resuscitation and supportive care wound care is with the foam based dressing. \ 07/10/2018 patient seems to have some slight improvement with initiation of antibiotic therapy with daptomycin and Azactam. Still profoundly ill. Overall plan of care being contemplated and best possible treatment plan. Wound care with the foam dressing to the coccyx ulceration which she does find soothing. The patient is less agitated than yesterday but still very confused. 07/12/2018 patient is more awake alert and brighter and her affect. Does complain of some pain to her hands from the edema. Her IV fluids have been decreased and she is receiving some diuretic therapy with some improvement. Her arms will be wrapped with Reji wraps to help with her edema and elevated on pillows. Current [place] to continue to treat her current bout of sepsis with the daptomycin and Azactam to complete at least 2 weeks of therapy, midline is placed in hopefully can transfer to rehab soon local wound care as the silver foam dressing to the ulcer. Current Visit: No Status: Acute Code(s): A41.50 - GRAM-NEGATIVE SEPSIS, UNSPECIFIED SNOMED Code(s): 181908511
[2018-07-13 05:54] LABS: Glucose,Whole Blood 339 mg/dL (75-99)
[2018-07-13] MEDS: LEVOTHYROXINE 25 MCG TAB PO SCH (06:52)
[2018-07-13] MEDS: INSULIN ASPART 100 UNIT/ML 1 ML 10 ML VIAL SQ SCH ×4 (06:52→22:30)
[2018-07-13] MEDS: SODIUM CHLORIDE 0.45% 1,000 ML IV SCH ×3 (06:53→15:51)
[2018-07-13] MEDS: INSULN ASP PRT/INSULIN ASPART 100 UNIT/ML 10 ML VIAL SQ SCH ×2 (06:54→17:55)
[2018-07-13] MEDS: ALBUTEROL NEBULIZED 2.5 MG/3 ML INHALATION SCH ×3 (07:25→20:00)
[2018-07-13] MEDS: traMADol 50 MG TAB PO PRN ×3 (09:33→23:48)
[2018-07-13] MEDS: CHOLECALCIFEROL 1,000 UNIT TAB PO SCH (09:33)
[2018-07-13] MEDS: SODIUM BICARBONATE TAB 650 MG TAB PO SCH ×2 (09:33→23:50)
[2018-07-13] MEDS: FERROUS SULFATE 325 MG TAB PO SCH (09:34)
[2018-07-13] MEDS: AZTREONAM 1 GM in SODIUM CHLORIDE 0.9% 50 ML IVPB SCH (09:34)
[2018-07-13] MEDS: PANTOPRAZOLE 40 MG/10 ML VIAL IV SCH (09:34)
[2018-07-13] MEDS: ISOSORBIDE MONONITRATE ER 30 MG TAB.ER.24H PO SCH (09:34)
[2018-07-13] MEDS: ALLOPURINOL 100 MG TAB PO SCH ×2 (09:34→23:50)
[2018-07-13] MEDS: ASPIRIN 81 MG PO SCH (09:34)
[2018-07-13 11:50] LABS: Glucose,Whole Blood 208 mg/dL (75-99)
[2018-07-13] MEDS: MULTIVITAMINS, THERA 1 EACH TAB PO SCH (12:07)
[2018-07-13 16:08] VITALS: BMI 33.4
[2018-07-13 16:19] LABS: Glucose,Whole Blood 144 mg/dL (75-99)
--- NOTE | 2018-07-13 18:32 | PN ---
PROGRESS NOTE Patient is seen for followup for acute kidney injury. Her renal function has been improving. We do not have any labs from today. The patient has had good urine output. PHYSICAL EXAMINATION: This morning, blood pressure was 120/65, heart rate 70 per minute. Patient is afebrile. Examination of the heart S1, S2. Examination of lungs bilateral breath sounds are heard. Abdomen is soft, nontender. Examination of lower extremities shows no evidence of edema. STUDENT MINISTRIES DIRECTOR exam is grossly intact. LABS: Not available from today. ASSESSMENT: 1. Acute kidney injury, mainly prerenal associated with hypovolemia, slowly improving. Check labs in a.m. 2. Chronic kidney disease secondary to diabetic kidney disease and solitary left kidney with baseline creatinine 1.5-1.8. 3. Stage III coccyx ulcer. 4. Status post right nephrectomy. PLAN: Continue IV fluids. Repeat labs in a.m. MMODL / IJN: [id number] /
[2018-07-13 20:42] LABS: Glucose,Whole Blood 260 mg/dL (75-99)
[2018-07-13] MEDS: DAPTOmycin 500 MG in SODIUM CHLORIDE 0.9% 50 ML IVPB SCH (22:30)
[2018-07-14 06:14] LABS: Glucose,Whole Blood 118 mg/dL (75-99)
[2018-07-14] MEDS: LEVOTHYROXINE 25 MCG TAB PO SCH (06:27)
[2018-07-14] MEDS: traMADol 50 MG TAB PO PRN (06:27)
--- NOTE | 2018-07-14 07:54 | PN ---
PROGRESS NOTE DATE OF SERVICE: July 13, 2018. PRESENTING COMPLAINT: Tired. INTERVAL HISTORY: Patient presented with acute kidney injury, infected stage II decubitus ulcer, UTI and pneumonia. Sitting on bed, tolerating her meals, weak and tired. Looking at patient going to the F. Prognosis is guarded. REVIEW OF SYSTEMS: Done for constitutional, cardiovascular, GI, pulmonary; relevant findings as above. CURRENT MEDICATIONS: Reviewed that include IV aztreonam and daptomycin, IV fluids. PHYSICAL EXAMINATION: VITAL SIGNS: Temperature 97.7, pulse 71, respiratory 18, blood pressure 125/67, pulse ox 95 percent on 2 L. GENERAL APPEARANCE: Sitting up in bed, tired-appearing, awake. EYES: Pupil equal, conjunctivae pale. NECK: JVD unable to assess. Mass not palpable. LUNGS: Decreased breath sounds. CARDIOVASCULAR: 1st and 2nd sounds normal. Edema present also in the arms. ABDOMEN: Soft, nontender. Left abdominal wall hernia. Urostomy bag in place. PSYCHIATRY: Answering simple questions. DERMATOLOGICAL: Third-spacing of the limbs. Stage IV sacral decubitus ulcer. INVESTIGATIONS: Accu-Cheks are noted. ASSESSMENT: 1. Acute kidney injury, nonoliguric, probably from acute tubular necrosis and also hypotension from diuretics. 2. History of renal cell carcinoma with right nephrectomy. 3. History of bladder uterine cancer treated with radiation and bladder removed. The patient has a urostomy. 4. Severe sigmoid diverticulosis asymptomatic. 5. Chronic congestive heart failure from diastolic dysfunction, stable. 6. Chronic kidney disease stage 3, baseline from diabetic nephropathy and nephrosclerosis. 7. Essential hypertension. 8. Hyperlipidemia. 9. Hypothyroidism. 10.Ventral abdominal wall hernia, nonobstructive, asymptomatic. 11.Stage IV sacral decubitus ulcer. 12.Diabetes mellitus type 2, chronically on insulin uncontrolled with hypoglycemia from poor oral intake. 13.Gastroesophageal reflux disease. 14.Chronic medical debility. 15.Acute metabolic encephalopathy from multiple electrolyte abnormalities with some improvement. 16.Acute urinary tract infection with cystitis. 17.Possible pneumonia from aspiration. 18.Anemia of chronic kidney disease. 19.Mild protein-calorie malnutrition from decreased oral intake causing hypoalbuminemia. 20.Third-spacing from hypoalbuminemia. 21.CODE STATUS: DNR. 22.Medical debility. PLAN: Patient overall not doing too well. The patient has a course of antibiotics as directed by Dr. Orozco. Looking at patient going to the ECF. Prognosis is guarded. MMODL / IJN: [id number] /
[2018-07-14] MEDS: ALBUTEROL NEBULIZED 2.5 MG/3 ML INHALATION SCH ×3 (08:21→20:17)
[2018-07-14] MEDS: INSULIN ASPART 100 UNIT/ML 1 ML 10 ML VIAL SQ SCH ×4 (08:41→23:09)
[2018-07-14] MEDS: CALCITRIOL 0.25 MCG CAP PO SCH (08:54)
[2018-07-14] MEDS: PANTOPRAZOLE 40 MG/10 ML VIAL IV SCH (08:54)
[2018-07-14] MEDS: MULTIVITAMINS, THERA 1 EACH TAB PO SCH (08:55)
[2018-07-14] MEDS: ASPIRIN 81 MG PO SCH (08:55)
[2018-07-14] MEDS: AZTREONAM 1 GM in SODIUM CHLORIDE 0.9% 50 ML IVPB SCH (08:55)
[2018-07-14] MEDS: SODIUM BICARBONATE TAB 650 MG TAB PO SCH ×2 (08:55→23:09)
[2018-07-14] MEDS: FERROUS SULFATE 325 MG TAB PO SCH (08:55)
[2018-07-14] MEDS: ISOSORBIDE MONONITRATE ER 30 MG TAB.ER.24H PO SCH (08:55)
[2018-07-14] MEDS: CHOLECALCIFEROL 1,000 UNIT TAB PO SCH (08:55)
[2018-07-14] MEDS: ALLOPURINOL 100 MG TAB PO SCH (08:55)
[2018-07-14] MEDS: INSULN ASP PRT/INSULIN ASPART 100 UNIT/ML 10 ML VIAL SQ SCH ×2 (09:00→17:27)
--- NOTE | 2018-07-14 11:05 | PN ---
PROGRESS NOTE Patient is seen for followup for acute kidney injury. I do not see any labs from today. I will go ahead and order labs. The patient is maintained on IV fluids. She has a catheter and has had good urine output. The patient is complaining of swelling in her extremities. PHYSICAL EXAMINATION: On examination this morning, blood pressure is 139/65, heart rate 96 per minute. She is afebrile. Examination of the heart S1, S2. Examination of the lungs bilateral breath sounds are heard. Decreased breath sounds at bases. Abdomen is soft, nontender. Exam of lower extremities shows trace edema bilaterally. There is edema noted in upper extremities as well. LABS: Pending. ASSESSMENT: 1. Acute kidney injury, prerenal, currently maintained on IV fluids. We will check labs today. I will likely decrease the IV fluids, the rate of the IV fluids. 2. Chronic kidney disease secondary to diabetic kidney disease and solitary left kidney with baseline creatinine 1.5-1.8. 3. Stage III coccyx ulcer. 4. History of right nephrectomy. 5. History of bladder and uterine cancer treated with radiation, status post cystectomy currently with ileal loop urostomy. PLAN: Check labs. Decrease IV fluids. MMODL / IJN: [id number] /
[2018-07-14 11:22] LABS: Calcium 7.9 mg/dL (8.4-10.2); Potassium 4.3 mmol/L (3.5-5.1)
[2018-07-14 11:53] LABS: Glucose,Whole Blood 224 mg/dL (75-99)
[2018-07-14] MEDS: SODIUM CHLORIDE 0.45% 1,000 ML IV SCH (17:06)
[2018-07-14 17:48] LABS: Glucose,Whole Blood 126 mg/dL (75-99)
[2018-07-14 20:43] LABS: Glucose,Whole Blood 151 mg/dL (75-99)
--- NOTE | 2018-07-15 00:11 | PN ---
PROGRESS NOTE DATE OF SERVICE: 07/14/2018. PRESENTING COMPLAINT: Tired. INTERVAL HISTORY: Patient with acute kidney injury, infected decubitus ulcer, UTI, pneumonia, doing somewhat better. Sitting up, tolerating a diet. Has not had edema. IV fluids were decreased. Pending to go down to the ECF. REVIEW OF SYSTEMS: Done for constitutional, cardiovascular, GI, pulmonary; relevant findings as above. CURRENT MEDICATIONS: Reviewed that include IV aztreonam and IV daptomycin. PHYSICAL EXAMINATION: Temperature 98.1, pulse 80, respiratory rate 18, blood pressure 147/60, pulse 90, saturating 100 percent on 2. GENERAL APPEARANCE: Sitting up, awake, tired-appearing. EYES: Pupils equal. Conjunctivae pale. NECK: JVD unable to assess. Mas not palpable. Respiratory effort increased. LUNGS: Decreased breath sounds. CARDIOVASCULAR: 1st and 2nd sounds normal. Edema present. ABDOMEN: Soft, nontender. Left abdominal wall hernia. Urostomy bag in place. PSYCHIATRY: Answering simple questions. INVESTIGATIONS: Potassium 4.3, BUN 112, creatinine 3.35. Accu-Cheks are normal. ASSESSMENT: 1. Acute kidney injury, nonoliguric, probably from acute tubular necrosis and also hypotension from diuretics. 2. History of renal cell carcinoma with right nephrectomy. 3. History of bladder and uterine cancer treated with radiation and bladder removed. The patient has a urostomy. 4. Severe sigmoid diverticulosis, asymptomatic. 5. Chronic congestive heart failure from diastolic dysfunction. 6. Chronic kidney disease stage 3, baseline from diabetic nephropathy and nephrosclerosis. 7. Essential hypertension. 8. Hyperlipidemia. 9. Hypothyroidism. 10.Ventral abdominal wall hernia, nonobstructive, asymptomatic. 11.Stage IV sacral decubitus ulcer. 12.Diabetes mellitus type 2, chronically on insulin uncontrolled with hypoglycemia from poor oral intake. 13.Gastroesophageal reflux disease. 14.Chronic medical debility. 15.Acute metabolic encephalopathy from multiple electrolyte abnormalities with some improvement. 16.Acute urinary tract infection with cystitis. 17.Possible pneumonia from aspiration. 18.Anemia of chronic kidney disease. 19.Mild protein calorie malnutrition decreased oral intake causing hypoalbuminemia. 20.Third-spacing from hypoalbuminemia. 21.CODE STATUS: DNR. 22.Medical debility. PLAN: I will DC IV fluids. Continue antibiotics. Looking at patient going to the ECF. Patient's prognosis remains poor. MMODL / IJN: [id number] /
[2018-07-15] MEDS: traMADol 50 MG TAB PO PRN ×2 (05:21→18:16)
[2018-07-15 06:04] LABS: Glucose,Whole Blood 108 mg/dL (75-99)
[2018-07-15] MEDS: LEVOTHYROXINE 25 MCG TAB PO SCH (07:08)
[2018-07-15] MEDS: ALBUTEROL NEBULIZED 2.5 MG/3 ML INHALATION SCH ×3 (08:29→19:43)
[2018-07-15] MEDS: INSULIN ASPART 100 UNIT/ML 1 ML 10 ML VIAL SQ SCH ×4 (08:47→21:42)
[2018-07-15] MEDS: AZTREONAM 1 GM in SODIUM CHLORIDE 0.9% 50 ML IVPB SCH (08:52)
[2018-07-15] MEDS: PANTOPRAZOLE 40 MG/10 ML VIAL IV SCH (08:52)
[2018-07-15] MEDS: INSULN ASP PRT/INSULIN ASPART 100 UNIT/ML 10 ML VIAL SQ SCH ×2 (08:52→18:16)
[2018-07-15] MEDS: ALLOPURINOL 100 MG TAB PO SCH (08:53)
[2018-07-15] MEDS: SODIUM BICARBONATE TAB 650 MG TAB PO SCH ×2 (08:53→21:46)
[2018-07-15] MEDS: ISOSORBIDE MONONITRATE ER 30 MG TAB.ER.24H PO SCH (08:53)
[2018-07-15] MEDS: CHOLECALCIFEROL 1,000 UNIT TAB PO SCH (08:53)
[2018-07-15] MEDS: FERROUS SULFATE 325 MG TAB PO SCH (08:53)
[2018-07-15] MEDS: ASPIRIN 81 MG PO SCH (08:53)
[2018-07-15 11:58] LABS: Glucose,Whole Blood 137 mg/dL (75-99)
[2018-07-15] MEDS: MULTIVITAMINS, THERA 1 EACH TAB PO SCH (12:26)
[2018-07-15 16:53] LABS: Glucose,Whole Blood 107 mg/dL (75-99)
[2018-07-15 16:53] LABS: Glucose,Whole Blood 120 mg/dL (75-99)
[2018-07-15] MEDS: DAPTOmycin 500 MG in SODIUM CHLORIDE 0.9% 50 ML IVPB SCH (20:23)
[2018-07-15 21:12] LABS: Glucose,Whole Blood 71 mg/dL (75-99)
--- NOTE | 2018-07-15 22:43 | PN ---
PROGRESS NOTE DATE OF SERVICE: 07/15/2018 PRESENTING COMPLAINT: Tired. INTERVAL HISTORY: Patient with acute kidney injury, infected decubitus ulcer, UTI and pneumonia, sitting up, eating some food, getting tired easily. IV fluids were discontinued yesterday. Overall, she is functionally doing rather poorly. REVIEW OF SYSTEMS: Attempted for constitutional, cardiovascular, GI, pulmonary; relevant findings as above. CURRENT MEDICATIONS: Reviewed that include IV aztreonam and IV daptomycin. PHYSICAL EXAMINATION: Temperature 98, pulse 80, respirations 20, blood pressure 139/59, pulse ox 96% on 2 L. GENERAL APPEARANCE: Propped up in bed, awake, tired. EYES: Pupils equal. Conjunctivae pale. NECK JVD unable to assess. Mass not palpable. LUNGS: Decreased breath sounds. CARDIOVASCULAR: First and second sounds normal. Edema present. ABDOMEN: Soft. Left abdominal wall hernia. Urostomy bag in place. PSYCHIATRY: Patient does answer simple questions. INVESTIGATIONS: Accu-Cheks are noted. ASSESSMENT: 1. Acute kidney injury, nonoliguric, probably from acute tubular necrosis and also hypotension from diuretics. 2. Right nephrectomy for renal cell carcinoma. 3. 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 The patient has urostomy. 4. Severe sigmoid diverticulosis, asymptomatic. 5. Chronic congestive heart failure from diastolic dysfunction. 6. Chronic kidney disease stage 3, baseline from diabetic nephropathy and nephrosclerosis. 7. Essential hypertension. 8. Hyperlipidemia. 9. Hypothyroidism. 10.Ventral abdominal wall hernia, nonobstructive, asymptomatic. 11.Stage IV sacral decubitus ulcer, infected, present on admission. 12.Diabetes mellitus type 2, chronically on insulin, uncontrolled with hypoglycemia from poor oral intake. 13.Gastroesophageal reflux disease. 14.Chronic medical debility. 15.Acute metabolic encephalopathy from multiple electrolyte abnormalities. 16.Acute urinary tract infection with cystitis. 17.Pneumonia from aspiration. 18.Anemia of chronic kidney disease. 19.Mild protein-calorie malnutrition from decreased oral intake causing hypoalbuminemia. 20.Third-spacing from hypoalbuminemia. 21.Medical debility. 22.CODE STATUS: DNR. PLAN: IV fluids were discontinued yesterday. Prognosis is not looking good. The patient is tolerating some diet. ADVANCED CARE PLANNING: I spoke to patient's nephew, Mr. Staton, who is here with his . They have known the patient for a long time and they do feel that the patient has gone rapidly downhill and this is the worst they have seen. At this point, he wishes to see that when patient gets transferred out, the patient could go into hospice if she deteriorates and keep the patient comfortable, that is all they want. No artificial feeding, etc. Did discuss that the patient will be getting transferred to the ECF tomorrow. Total time spent for advanced care planning was more than 35 minutes in addition. ANA CRISTINA / RAJIV: [id number] /
--- NOTE | 2018-07-15 23:13 | PN ---
PROGRESS NOTE Patient is seen for followup for acute kidney injury, which is mainly prerenal. Renal function has been improving. Patient was maintained on IV fluids which are now discontinued. She denies any complaints this morning. PHYSICAL EXAMINATION: Blood pressure was 137/92, heart rate 88 per minute patient is afebrile. Examination of the heart S1, S2. Examination lungs bilateral breath sounds are heard. Abdomen is soft, nontender. Exam of lower extremities shows edema 1+ bilaterally upper and lower extremities. LABS: Labs from yesterday showed serum creatinine 3.35, BUN 112, sodium 137, potassium 4.3. ASSESSMENT: 1. Acute kidney injury, mainly prerenal, slowly improving with IV hydration. No labs today. We will repeat labs in a.m. 2. Metabolic acidosis, currently maintained on oral sodium bicarb. 3. Chronic kidney disease secondary to diabetic kidney disease and solitary left kidney with baseline creatinine about 1.5-1.8 mg/dL. 4. History of bladder and uterine cancer status post cystectomy and ileal loop urostomy, status post radiation as well. 5. History of right nephrectomy. 6. Stage III coccyx ulcer, maintained on antibiotics. PLAN: Agree with discontinuation of fluids. Encourage increased oral intake. Repeat labs in a.m. MMODL / IJN: [id number] /
[2018-07-16 00:10] LABS: Glucose,Whole Blood 55 mg/dL (75-99)
[2018-07-16 00:31] LABS: Glucose,Whole Blood 56 mg/dL (75-99)
[2018-07-16 00:31] LABS: Glucose,Whole Blood 49 mg/dL (75-99)
[2018-07-16] MEDS ORDERED: DEXTROSE 50%-WATER 50 ML SYRINGE IVP ONE (00:35)
[2018-07-16 01:13] LABS: Glucose,Whole Blood 51 mg/dL (75-99)
[2018-07-16 01:36] LABS: Glucose,Whole Blood 159 mg/dL (75-99)
[2018-07-16 05:53] LABS: Glucose,Whole Blood 124 mg/dL (75-99)
[2018-07-16] MEDS: LEVOTHYROXINE 25 MCG TAB PO SCH (06:17)
[2018-07-16] MEDS: ALBUTEROL NEBULIZED 2.5 MG/3 ML INHALATION SCH (07:21)
[2018-07-16] MEDS: INSULIN ASPART 100 UNIT/ML 1 ML 10 ML VIAL SQ SCH ×2 (07:52→11:40)
[2018-07-16] MEDS: INSULN ASP PRT/INSULIN ASPART 100 UNIT/ML 10 ML VIAL SQ SCH (07:52)
[2018-07-16 08:01] LABS: Glucose,Whole Blood 112 mg/dL (75-99)
[2018-07-16 08:24] VITALS: BP 152/61; PULSE 81; TEMP 98.7
[2018-07-16] MEDS: ALLOPURINOL 100 MG TAB PO SCH (08:56)
[2018-07-16] MEDS: ASPIRIN 81 MG PO SCH (08:56)
[2018-07-16] MEDS: SODIUM BICARBONATE TAB 650 MG TAB PO SCH (08:57)
[2018-07-16] MEDS: ISOSORBIDE MONONITRATE ER 30 MG TAB.ER.24H PO SCH (08:57)
[2018-07-16] MEDS: FERROUS SULFATE 325 MG TAB PO SCH (08:57)
[2018-07-16] MEDS: CHOLECALCIFEROL 1,000 UNIT TAB PO SCH (08:57)
[2018-07-16] MEDS: PANTOPRAZOLE 40 MG/10 ML VIAL IV SCH (08:57)
[2018-07-16] MEDS: traMADol 50 MG TAB PO PRN (09:05)
[2018-07-16] MEDS: AZTREONAM 1 GM in SODIUM CHLORIDE 0.9% 50 ML IVPB SCH (09:24)
[2018-07-16 10:24] VITALS: RESP 26
[2018-07-16] MEDS: MULTIVITAMINS, THERA 1 EACH TAB PO SCH (11:40)
[2018-07-16 11:51] LABS: Glucose,Whole Blood 187 mg/dL (75-99)
--- NOTE | 2018-07-16 12:34 | DS ---
DISCHARGE SUMMARY DATE OF ADMISSION: 07/08/2018 DATE OF DISCHARGE: 07/16/2018 FINAL DIAGNOSES: 1. Acute kidney injury, nonoliguric, probably from acute tubular necrosis, also from diuretics, not improving. 2. Right nephrectomy from renal cell carcinoma, history of. 3. 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 The patient has a urostomy, chronic. 4. Severe sigmoid diverticulosis, asymptomatic. 5. Chronic congestive heart failure from diastolic dysfunction. 6. Chronic kidney disease stage 3, baseline from diabetic nephropathy and nephrosclerosis. 7. Essential hypertension. 8. Hyperlipidemia. 9. Hypothyroidism. 10.Ventral abdominal wall hernia, nonobstructive, asymptomatic. 11.Stage IV sacral decubitus ulcer, infected, present on admission. 12.Diabetes mellitus type 2, chronically on insulin uncontrolled with hypoglycemia from poor oral intake. 13.Gastroesophageal reflux disease. 14.Chronic medical debility. 15.Acute metabolic encephalopathy from multiple electrolyte abnormalities. 16.Acute urinary tract infection with cystitis, present on admission. 17.Pneumonia from aspiration, present on admission. 18.Anemia of chronic kidney disease. 19.Mild protein-calorie malnutrition from decreased oral intake causing hypoalbuminemia. 20.Third-spacing from hypoalbuminemia. 21.Medical debility, advanced. 22.CODE STATUS: DNR. CONSULTATIONS: Dr. Orozco from Infectious Disease; Dr. Damon from Nephrology. HOSPITAL COURSE: This elderly 87-year-old patient with multiple medical problems, follows with Dr. Conde, who has a rather stage IV decubitus ulcer. Also has got urostomy. Presented feeling weak, tired and run down, very encephalopathic. The patient was treated for both pneumonia and UTI. The patient has also got renal failure. Creatinine was 5.9 on admission, did come down to 3.35. I did speak at length to patient's nephew who is the [employer]. The patient's quality of life is very poor, eating only small amounts. The patient will be transferred to the [facility] and then patient will then be made hospice if continues to deteriorate. PHYSICAL EXAMINATION: On examination, temperature 98.7, pulse 81, respiration 17, blood pressure 152/61, pulse ox 96% on 2 L. LUNGS: Decreased breath sounds. Edema present. The patient is able answer simple questions. INVESTIGATIONS: BUN 112, creatinine 3.35. DISCHARGE MEDICATIONS: 1. Allopurinol 100 mg b.i.d. 2. Aspirin 81 mg a day. 3. NovoLog Mix 70/30 twenty units subcutaneous a.c. b.i.d. 4. Imdur ER 30 mg daily. 5. Prilosec 20 mg q.h.s. 6. Sodium bicarb 325 p.o. t.i.d. 7. Synthroid 25 mcg p.o. daily. 8. Loperamide 2 mg p.o. q.i.d. p.r.n. 9. Tylenol Extra Strength 500 mg q.6h p.r.n. 10.Nitrostat 0.4 sublingual q.5 p.r.n. 11.Lasix 40 mg p.o. daily. 12.Ventolin 2.5 nebulizer t.i.d. 13.Ultram 50 mg q.6 p.r.n. DISPOSITION: [facility]. Follow up with Dr. Conde. CODE STATUS: DNR. Patient is to advance to hospice. Accu-Cheks q.a.c. and bedtime. MMODL / IJN: [id number] /
== END 2018-07-16 14:09 | DRG 871 ==
LOC: EC 18:15 → 3SCARD 20:07 → 4MS4W 07-15 20:49
PROVIDERS: ADMIT Hospitalist; ATTEND Hospitalist
PROC: 05HD33Z Insertion of Infusion Device into Right Cephalic Vein, Percutaneous Approach (ICD-10-PCS; principal; 2018-07-12 15:00)
PROC: B54MZZA Ultrasonography of Right Upper Extremity Veins, Guidance (ICD-10-PCS; principal; 2018-07-12 15:00)
PROC: 3E03329 Introduction of Other Anti-infective into Peripheral Vein, Percutaneous Approach (ICD-10-PCS; principal; 2018-07-12 15:00)
DX: A41.50 Gram-negative sepsis, unspecified (principal); L89.154 Pressure ulcer of sacral region, stage 4; N17.0 Acute kidney failure with tubular necrosis; G93.41 Metabolic encephalopathy; J69.0 Pneumonitis due to inhalation of food and vomit; E44.1 Mild protein-calorie malnutrition; E87.0 Hyperosmolality and hypernatremia; E87.2 Acidosis; I13.0 Hypertensive heart and chronic kidney disease with heart failure and stage 1 through stage 4 chronic kidney disease, or unspecified chronic kidney disease; I50.32 Chronic diastolic (congestive) heart failure; A41.9 Sepsis, unspecified organism; K57.30 Diverticulosis of large intestine without perforation or abscess without bleeding; E11.9 Type 2 diabetes mellitus without complications; K21.9 Gastro-esophageal reflux disease without esophagitis; D63.1 Anemia in chronic kidney disease; E03.9 Hypothyroidism, unspecified; E11.22 Type 2 diabetes mellitus with diabetic chronic kidney disease; E11.65 Type 2 diabetes mellitus with hyperglycemia; E78.5 Hyperlipidemia, unspecified; E86.0 Dehydration; E86.1 Hypovolemia; E87.5 Hyperkalemia; N18.3 Chronic kidney disease, stage 3 (moderate); I44.7 Left bundle-branch block, unspecified; I25.10 Atherosclerotic heart disease of native coronary artery without angina pectoris; N30.90 Cystitis, unspecified without hematuria; Z66 Do not resuscitate; K43.9 Ventral hernia without obstruction or gangrene; E87.6 Hypokalemia; Z85.528 Personal history of other malignant neoplasm of kidney; Z85.42 Personal history of malignant neoplasm of other parts of uterus; Z93.6 Other artificial openings of urinary tract status; Z79.4 Long term (current) use of insulin; Z79.82 Long term (current) use of aspirin; Z79.890 Hormone replacement therapy; Z79.899 Other long term (current) drug therapy; Z80.6 Family history of leukemia; Z80.8 Family history of malignant neoplasm of other organs or systems; Z85.51 Personal history of malignant neoplasm of bladder; Z90.5 Acquired absence of kidney; Z90.710 Acquired absence of both cervix and uterus; Z92.3 Personal history of irradiation
CPT/HCPCS: 36415; 36569; 74018; 76770; 76937; 80048; 80053; 81001; 83036; 83605; 83735; 84132; 85025; 87086; 94640; 94760; 96361; 96374; 99285